=== PATIENT | female | born 1975 | race Hispanic/Latino ===

== ENCOUNTER 2023-02-26 12:21 | Emergency (ER) | payer OTHER ==
[2023-02-26] MEDS ORDERED: KETOROLAC 30 MG/ML INJ ONE (13:04)
--- OUTSIDE RECORDS SUMMARY | 2023-02-26 13:10 | XMS REPORT | Continuity of Care Document ---
:1975 Author Organization [facility] t Address [address] [place] [address] [address] [place] [address] Care Team Providers Name Role Phone Khoi Siddiqui MD Primary Care Physician [phone] ALANIS PETERSON Attending Clinician Unavailable Cheryl Tomas Attending Clinician Unknown, Attending Attending Clinician Unavailable CHERYL REDDING Attending Clinician Unavailable SERJIO NUNEZ III Attending Clinician Unavailable King JOSE MD, James C Attending Clinician Provider, [facility] Attending Clinician Unavailable SELENA TOUSSAINT Attending Clinician Unavailable Selena Toussaint PA-C Attending Clinician Doctor Unassigned, Fedora Attending Clinician Unavailable JIL ADAMS Attending Clinician Unavailable SIENNA WATSON Attending Clinician Unavailable Sienna Watson MD Attending Clinician Conrad VIGIL, Kelly Attending Clinician KELLY MARTINES Attending Clinician Unavailable Jil Adams MD Attending Clinician Matilde RD, LD, Casie Attending Clinician Unavailable ZAINAB MACDONALD Attending Clinician Unavailable JIL ADAMS Attending Clinician Unavailable Jil Adams MD Attending Clinician Nilda Wagner MD Attending Clinician [place], [facility] Test Attending Clinician Unavailable Andrew Chinchilla DO Attending Clinician ANDREW CHINCHILLA Attending Clinician Unavailable Valdemar John PA-C Attending Clinician VALDEMAR JOHN Attending Clinician Unavailable Alanis Peterson MD Attending Clinician UCHE MOORE Attending Clinician Unavailable Uche Priest Attending Clinician Buffy Redd MD Attending Clinician Percy Vogel Attending Clinician Unavailable Brandan Thrasher MD Attending Clinician BRANDAN THRASHER Attending Clinician Unavailable 2, Adc Lab Attending Clinician Unavailable Zachary Rodriguez MD Attending Clinician ZACHARY RODRIGUEZ Attending Clinician Unavailable ZACHARY RODRIGUEZ Attending Clinician Unavailable Nurse, Adc Pob Immunization Attending Clinician Unavailable Surface Lyndsay MAJOR Attending Clinician ELE VALENTINE Attending Clinician Unavailable Jenaro Jonas Attending Clinician Ele Valentine DO Attending Clinician Clarence Benitez MD Attending Clinician Neptali Knight MD Attending Clinician Mansi Romo MD Attending Clinician MD NEPTALI KNIGHT Attending Clinician Unavailable Singh Meeks Attending Clinician Unavailable LULY REEVES Attending Clinician Unavailable Elzbieta Bennett RN Attending Clinician Unavailable Only, Fito Db Test Attending Clinician Unavailable Angela CONTAMINATION CONSULTANT, Pierre Attending Clinician PIERRE REEVES Attending Clinician Unavailable ALLAN FINNEY Attending Clinician Unavailable Eric Senior MD Attending Clinician Tiarra CONTAMINATION CONSULTANT, Mana Lindsey Attending Clinician MANA MAYEN Attending Clinician Unavailable VIKTORIYA MIGUEL Attending Clinician Unavailable SASHA DAHL Attending Clinician Unavailable SALVADOR KANG Attending Clinician Unavailable Nurse, Ciro Urgent Attending Clinician Unavailable UNKNOWN, ATTENDING Attending Clinician Unavailable Ady Hollis MD Attending Clinician Provider, [facility] Attending Clinician Unavailable LISA HARPER Attending Clinician Unavailable Arcadio INGRAM, Annabel Attending Clinician SAIRA LOPEZ Attending Clinician Unavailable JIL ADAMS Admitting Clinician Unavailable SIENNA WATSON Admitting Clinician Unavailable ZACHARY RODRIGUEZ Admitting Clinician Unavailable ELE VALENTINE Admitting Clinician Unavailable Ele Valentine DO Admitting Clinician NEPTALI KNIGHT Admitting Clinician Unavailable MD NEPTALI KNIGHT Admitting Clinician Unavailable Physician, No Primary or Family Admitting Clinician Unavaila SAIRA French Admitting Clinician Unavailable Payers Payer Name Policy Type Policy Number Effective Date Expiration Date S pinky [facility] [place] [facility] [id number] 2017 00:00:00 [facility] [id number] 2020 CHOICE MEDICAID 00:00:00 [facility] [id number] [facility] MEDICAID COMM [id number] 2020 [facility] 00:00:00 [facility] [id number] [facility] (MEDICAID REPLACEMENT - HMO) [facility] [id number] 2019 00:00:00 Problems Condition Condition Condition Status Onset Resolution Last Treating Co mments Source Name Details Category Date Date Treatment Clinician Date Dizziness Dizziness Disease Active 2020-10 Uni vers 2-03 ity of 00:00: [place] 00 Medical Branch Stroke-lik Stroke-lik Disease Active 2020-10 M ethodi e symptoms e symptoms -12 st 00:00: [facility]osp[facility] 00 l Subacute Subacute Disease Active Unive rs maxillary maxillary 6-03 [place] of [place]itis [place] Chronic Chronic Disease Active Univers allergic allergic 6-03 ity of rhinitis rhinitis 00:00: [place] 00 Medical Branch Pharyngiti Pharyngiti Disease Active U nivers s due to s due to 6-03 ity of other other 00:00: [place] organism organism 00 Medica l Branch SOB SOB Disease Active Univers (shortness (shortness 6-03 it y of of breath) of breath[place] [facility] [place] Tenderness Tenderness Disease Active 2016-10 U nivers of female of female 1-15 ity of pelvic pelvic 00:00: [place] organs organs 00 Medical Branch Morbid Morbid Disease Active 2016-10 Univers obesity obesity 1-15 ity of 00:00: [place] 00 Medical Branch BMI BMI Disease Active 2016-10 Univers 31.0-31.9, 31.0-31.9, 1-15 it y of adult adult 00:00: [place] 00 Medical Branch Encounter Encounter Disease Active Uni vers for for 5-03 ity of laboratory laboratory [place] testing testing 00 Medical for for Branch COVID-19 COVID-19 virus virus Other Other Disease Active 2015-10 Univers general general 1-10 ity of counseling counseling 00:[place] and advice and advice 00 Me dical for for Branch contracept contracept joey joey management management Obesity Obesity Disease Active 2015-10 Univers (BMI (BMI 1-10 ity of 30.0-34.9) 30.0-34.9) [place] Depression Depression Disease Active 2015-10 U nivers , , 1-10 ity of unspecifie unspecifie 00:[place] d d 00 Medical depression depression Br anch type type Diabetes Diabetes Disease Active 2015-10 Unive rs mellitus mellitus 1-10 ity of due to due to 00:00: [place] underlying underlying 00 Me dical condition condition Bran ch without without complicati complicati on, on, without without long-term long-term current current use of use of insulin insulin Allergies, Adverse Reactions, Alerts Allergy Allergy Status Severity Reaction(s) Onset Inactive Treating Comm ents Source Name Type Date Date Clinician Guido Propensi Active Has [facility] e ty to 8-02 normal College adverse 00:00: side of reaction 00 effects Medicin s to such as e drug elevated BP and Glucose. Was hospitali zed due to this and was told to avoid n Propensi Active ty to 7-11 adverse 00:00: reaction 00 to drug Mucinex Propensi Active - Oral ty to 3-18 adverse 00:00: reaction 00 to drug CORTISON DRUG Active HYPERTENSION Un joellen E INGREDI 10-11 ity of 00:00: [place] 00 Medical Branch Cortison Propensi Active Hypertension Univers e ty to 07 ity of adverse 00:00: [place] reaction 00 Medical s Branch Cortison Drug Active Other (See Other [facility] Allergy Comments) 10-11 reaction( Lavinia es 00:00: s[facility] normal side effects such as elevated BP and Glucose. Was hospitali zed due to this and was told to avoid CORTISON Allergy Active High Other [facility] Cortison Propensi Active Hypertension Methodi e ty to 10-11 st adverse 00:00: Hospita reaction 00 l s to drug No Known DA Active U 0 [facility] 06[facility]14 [facility] s 00:00: [address] No Known DA Active U 0 [facility] All[facility]ie 06-14 [facility] s 00:00: [address] No Known DA Active U 2019-0 [facility] 02[facility]01 [facility] 00:[facility] 00 l of [place] No Known DA Active U 2018-0 [facility]ie 01-03 [place] 00:[facility]: [facility] 00 dic Hospita l Mucinex Propensi Active 2016-10 ty to 2-13 adverse 00:00: reaction 00 to drug Social History Social Habit Start Date Stop Date Quantity Comments Source History SDOH University o f Alcohol Std Drinks [place] [facility] History SDOH University o f Alcohol Binge [place] [facility] al [facility] History SDWV University o f Alcohol Comment [place] Med ical [facility] Sexual orientation Method ist [facility] identity [facility] Exposure to 2023-01-11 2023-01-21 Not sure University of SARS-CoV-2 (event) 00:00:00 16:08:00 [facility] Tobacco use and 2022-05-12 2022-05-[address] [facility] [address] [facility] kes exposure 00:00:00 00:00:00 Medical Center History SDOH 2021-12-26 2021-12-26 1 University o f Alcohol [facility] 00:00[facility]00 [facility] 2021-08-17 2021-08-17 Ex-drinker [facility] 00:00:00 00:00:00 (finding) Hospital History of Social 2021-08-17 2021-08-[address] function 00:00:00 00:00:00 Hospital Sex Assigned At [birth year] [facility] 00:00:00 00:00:00 Hospital Smoking Status Start Date Stop Date Source Never smoker [facility]UN[facility] Medications Ordered Filled Start Stop Current Ordering Indication Dosage Frequency Signature Comments Components Source Medication Medication Date Date Medication? Clinician (SIG) Name Name cefdinir 2022- Yes [id number] 600mg Take 2 U nivers 300 mg 4-19 04-30 capsules ity of capsule 00:00: 04:59 by mouth [place] 00 :00 in the [facility] for 10 days. nitrofurant 2022-0 Yes [id number] 100mg Take 1 Univers oin 100 mg 3-30 capsule by ity of capsule 00:00: mouth in [address] morning [place] and 1 capsule in the evening. nitrofurant 2022-0 Yes [id number] 100mg Take 1 Univers oin 100 mg 3-30 capsule by ity of capsule 00:00: mouth in [address] morning [place] and 1 capsule in the evening. lisinopriL 2022-0 Yes 20mg Take 1 Unive rs 20 mg 3-27 tablet by ity of tablet 08:37: mouth. [address] lisinopriL 2022-0 Yes 20mg Take 1 Unive rs 20 mg 3-27 tablet by ity of tablet 08:37: mouth. [address] lisinopriL 2022-0 Yes 20mg Take 1 Unive rs 20 mg 3-27 tablet by ity of tablet 08:37: mouth. [address] lisinopriL 0 Yes 20mg Take 1 Unive rs 20 mg 3-27 tablet by ity of tablet 08:37: mouth. [address] lisinopriL 0 Yes 20mg Take 1 Unive rs 20 mg 3-27 tablet by ity of tablet 08:37: mouth. [address] atorvastati Yes [facility] n (LIPITOR) [address] [place] 40 MG 09:43: of tablet 06 Medicin e carvedilol Yes 3.125mg Take 1 Ba ylor (COREG) 3-24 Tablet by [place] 3.125 MG 09:43: mouth. of tablet 06 Medicin e metformin Yes [facility] (GLUCOPHAGE 12-26 [place] ) 1000 MG 09:43: of tablet 06 Medicin e omeprazole Yes [facility] (PRILOSEC) 24 [place] 40 MG 09:43: of capsule 06 Medicin e Cholecalcif Yes Take by [facility] treva (HM 24 mouth. [place] VITAMIN D3) 09:43: of 100 MCG 06 Medicin (4000 UT) e CAPS Insulin Yes Inject [facility] Aspart, 12-26 into the [place] w/Niacinami 09:43: skin as of de, (FIASP 06 needed. Medici n FLEXTOUCH) e 100 UNIT/ML SOPN amoxicillin Yes 1{tbl} Take 1 Ba [facility]lor -clavulanat 3-24 Tablet by Col lege e 09:43: mouth two of (AUGMENTIN) 06 times Medicin 875-125 MG daily. e per tablet CREON Yes Take 2 Univers 36,000-114, 2-20 Capsules ity of 000- 00:00: by mouth 3 [place] 180,000 00 times Medical unit CpDR daily Branch (with meals). And 1 cap with snacks. CREON 0 Yes Take 2 Univers 36,000-114, 2-20 Capsules ity of 000- 00:00: by mouth 3 [place] 180,000 00 times Medical unit CpDR daily Branch (with meals). And 1 cap with snacks. CREON 0 Yes Take 2 Univers 36,000-114, 2-20 Capsules ity of 000- 00:00: by mouth 3 [place] 180,000 00 times Medical unit CpDR daily Branch (with meals). And 1 cap with snacks. CREON Yes Take 2 Univers 36,000-114, 2-20 Capsules ity of 000- 00:00: by mouth 3 [place] 180,000 00 times Medical unit CpDR daily Branch (with meals). And 1 cap with snacks. CREON Yes Take 2 Univers 36,000-114, 2-20 Capsules ity of 000- 00:00: by mouth 3 [place] 180,000 00 times Medical unit CpDR daily Branch (with meals). And 1 cap with snacks. Prucaloprid Yes 1{tbl} Take 1 Ba ylor e Succinate -07 Tablet by Col lege 2 MG TABS 00:00: mouth of 00 daily. Medicin e acetaminoph 2022- No 975mg 975 mg, U nivers en 11-06 Oral, ity of (TYLENOL) 02:00: 01:03 ONCE, 1 [place] tablet 975 00 :00 dose, On Medic al mg 11/05/22 Branch at 2000, MARY JO amoxicillin Yes 1{tbl} Take 1 Ba ylor -clavulanat 1-06 Tablet by Col lege e 11:20: mouth two of (AUGMENTIN) 33 times Medicin 875-125 MG daily. e per tablet amoxicillin Yes 1{tbl} Take 1 Ba ylor -clavulanat 1-06 Tablet by Col lege e 11:20: mouth two of (AUGMENTIN) 33 times Medicin 875-125 MG daily. e per tablet Insulin Yes Inject [facility] Aspart, 10-10 into the [place] w/Niacinami 11:20: skin as of de, (FIASP 09 needed. Medici n FLEXTOUCH) e 100 UNIT/ML SOPN Insulin Yes Inject [facility] Aspart, 10-10 into the [place] w/Niacinami 11:20: skin as of de, (FIASP 09 needed. Medici n FLEXTOUCH) e 100 UNIT/ML SOPN atorvastati Yes [facility] n (LIPITOR) 10-10 College 40 MG 11:15: of tablet 53 Medicin e carvedilol 3-0 Yes 3.125mg Take 3.125 [facility] (COREG) 1-06 mg by College 3.125 MG 11:15: mouth. of tablet 53 Medicin e metformin 3-0 Yes [facility] (GLUCOPHAGE 10-10 [place] ) 1000 MG 11:15: of tablet 53 Medicin e omeprazole 3-0 Yes [facility] (PRILOSEC) 10-10 [place] 40 MG 11:15: of capsule 53 Medicin e Cholecalcif 3-0 Yes Take by [place] th[place] treva ( 10-10 mouth. [place] VITAMIN D3) 11:15: of 100 MCG 53 Medicin (4000 UT) e CAPS atorvastati 2022-0 Yes [facility] n (LIPITOR) 10-10 [place] 40 MG 11:15: of tablet 53 Medicin e carvedilol 3-0 Yes 3.125mg Take 3.125 [facility] (COREG) 1-06 mg by [place] 3.125 MG 11:15: mouth. of tablet 53 Medicin e metformin 2022-0 Yes [facility] (GLUCOPHAGE 10-10 [place] ) 1000 MG 11:15: of tablet 53 Medicin e omeprazole 3-0 Yes [facility] (PRILOSEC) 10-10 [place] 40 MG 11:15: of capsule 53 Medicin e Cholecalcif 2022-0 Yes Take by [place] th[place] treva ( 10-10 mouth. [place] VITAMIN D3) 11:15: of 100 MCG 53 Medicin (4000 UT) e CAPS atorvastati 3-0 Yes [facility] n (LIPITOR) 10-10 [place] 40 MG 11:15: of tablet 53 Medicin e carvedilol 3-0 Yes 3.125mg Take 3.125 [facility] (COREG) 1-06 mg by College 3.125 MG 11:15: mouth. of tablet 53 Medicin e metformin 3-0 Yes [facility] (GLUCOPHAGE 10-10 [place] ) 1000 MG 11:15: of tablet 53 Medicin e omeprazole 2023-0 Yes [facility] (PRILOSEC) 10-10 [place] 40 MG 11:15: of capsule 53 Medicin e Cholecalcif 3-0 Yes Take by [place] th[place] treva ( 10-10 mouth. [place] VITAMIN D3) 11:15: of 100 MCG 53 Medicin (4000 UT) e CAPS NAPROXEN 2021-10 Yes [id number] TAKE 1 Un joellen 500 mg 11-25 TABLET BY ity of tablet 00:00: MOUTH IN [place] 00 THE Medical MORNING Branch AND IN THE EVENING NAPROXEN 2021-10- No [id number] TAKE 1 U nivers 500 mg 11-25 TABLET BY ity of tablet 00:00: 00:00 MOUTH IN [place] 00 :00 THE Medical MORNING Branch AND IN THE EVENING naproxen 2021-10 Yes [id number] 500mg Take 1 U nivers (NAPROSYN) 11-06 tablet by ity of 500 mg 00:00: mouth in [place] tablet 00 the Medical morning Branch and 1 tablet in the evening. naproxen 2021-10- No [id number] 500mg Take 1 Univers (NAPROSYN) 11-06 tablet by ity of 500 mg 00:00: 00:00 mouth in [place] tablet 00 :00 the Medical morning Branch and 1 tablet in the evening. naproxen 2021-10 Yes [id number] 500mg Take 1 U nivers (NAPROSYN) 11-05 tablet by ity of 500 mg 00:00: mouth in [place] tablet 00 the Medical morning Branch and 1 tablet in the evening. naproxen 2021-10- No [id number] 500mg Take 1 Univers (NAPROSYN) 11-05 tablet by ity of 500 mg 00:00: 00:00 mouth in [place] tablet 00 :00 the Medical morning Branch and 1 tablet in the evening. atorvastati 2021-10 Yes [facility] n (LIPITOR) 10-05 [place] 40 MG 09:26: of tablet 19 Medicin e carvedilol 2021-10 Yes 3.125mg Take 3.125 [facility] (COREG) 10-05 mg by [place] 3.125 MG 09:26: mouth. of tablet 19 Medicin e metformin 2021-10 Yes [facility] (GLUCOPHAGE 10-05 [place] ) 1000 MG 09:26: of tablet 19 Medicin e omeprazole 2021-10 Yes [facility] (PRILOSEC) 10-05 [place] 40 MG 09:26: of capsule 19 Medicin e Cholecalcif 2021-10 Yes Take by [place] th[place] treva (HM 10-05 mouth. [place] VITAMIN D3) 09:26: of 100 MCG 19 Medicin (4000 UT) e CAPS atorvastati 2021-10 Yes [facility] n (LIPITOR) 10-05 [place] 40 MG 09:26: of tablet 19 Medicin e carvedilol 2021-10 Yes 3.125mg Take 3.125 [facility] (COREG) 10-05 mg by [place] 3.125 MG 09:26: mouth. of tablet 19 Medicin e metformin 2021-10 Yes [facility] (GLUCOPHAGE 10-05 [place] ) 1000 MG 09:26: of tablet 19 Medicin e omeprazole 2021-10 Yes [facility] (PRILOSEC) 10-05 [place] 40 MG 09:26: of capsule 19 Medicin e Cholecalcif 2021-10 Yes Take by [place] th[place] treva ( 10-[address] [facility] [place] VITAMIN D3) 09:26: of 100 MCG 19 Medicin (4000 UT) e CAPS atorvastati Yes [facility] n (LIPITOR) 07-03 [place] 40 MG 15:37: of tablet 52 Medicin e carvedilol Yes 3.125mg Take 3.125 [facility] (COREG) 07-03 mg by [place] 3.125 MG 15:37: mouth. of tablet 52 Medicin e metformin Yes [facility] (GLUCOPHAGE 07-03 [place] ) 1000 MG 15:37: of tablet 52 Medicin e omeprazole Yes [facility] (PRILOSEC) 07-03 [place] 40 MG 15:37: of capsule 52 Medicin e Cholecalcif Yes Take by [place] th[place] treva ( 07-03 mouth. [place] VITAMIN D3) 15:37: of 100 MCG 52 Medicin (4000 UT) e CAPS Pancrelipas Yes 2{capsu Take 2 B aylor e, 07-01 le} Capsules [place] Lip-Prot-Am 00:00: by mouth 3 of yl, 00 times Medicin [id number] daily e 0 units (with CPEP meals). And 1 cap with snacks. Pancrelipas Yes 2{capsu Take 2 B aylor e, 07-01 le} Capsules [place] Lip-Prot-Am 00:00: by mouth 3 of yl, 00 times Medicin [id number] daily e 0 units (with CPEP meals). And 1 cap with snacks. Pancrelipas Yes 2{capsu Take 2 B aylor e, 07-01 le} Capsules [place] Lip-Prot-Am 00:00: by mouth 3 of yl, 00 times Medicin [id number] daily e 0 units (with CPEP meals). And 1 cap with snacks. Pancrelipas Yes 2{capsu Take 2 B aylor e, 07-01 le} Capsules [place] Lip-Prot-Am 00:00: by mouth 3 of yl, 00 times Medicin [id number] daily e 0 units (with CPEP meals). And 1 cap with snacks. Pancrelipas Yes 2{capsu Take 2 B aylor e, 07-01 le} Capsules [place] Lip-Prot-Am 00:00: by mouth 3 of yl, 00 times Medicin [id number] daily e 0 units (with CPEP meals). And 1 cap with snacks. Pancrelipas Yes 2{capsu Take 2 B aylor e, 07-01 le} Capsules [place] Lip-Prot-Am 00:00: by mouth 3 of yl, 00 times Medicin [id number] daily e 0 units (with CPEP meals). And 1 cap with snacks. Pancrelipas Yes 2{capsu Take 2 B aylor e, 07-01 le} Capsules [place] Lip-Prot-Am 00:00: by mouth 3 of yl, 00 times Medicin [id number] daily e 0 units (with CPEP meals). And 1 cap with snacks. Pancrelipas Yes 2{capsu Take 2 B aylor e, 07-01 le} Capsules [place] Lip-Prot-Am 00:00: by mouth 3 of yl, 00 times Medicin [id number] daily e 0 units (with CPEP meals). And 1 cap with snacks. B-D DISP Yes Use once a [place] th[place] NEEDLE 9-20 week College 25GX1" 25G 00:00: of X 1" MISC 00 Medicin e B-D DISP 2021-0 Yes Use once a [place] thalia NEEDLE 9-20 week College 25GX1" 25G 00:00: of X 1" MISC 00 Medicin e B-D DISP Yes Use once a [place] thalia NEEDLE 9-20 week College 25GX1" 25G 00:00: of X 1" MISC 00 Medicin e B-D DISP 0 Yes Use once a [place] thalia NEEDLE 9-20 week College 25GX1" 25G 00:00: of X 1" MISC 00 Medicin e B-D DISP 2021-0 Yes Use once a [place] thalia NEEDLE 9-20 week College 25GX1" 25G 00:00: of X 1" MISC 00 Medicin e B-D DISP 2021-0 Yes Use once a [place] thalia NEEDLE 9-20 week College 25GX1" 25G 00:00: of X 1" MISC 00 Medicin e B-D DISP 2021-0 Yes Use once a [place] thalia NEEDLE 9-20 week College 25GX1" 25G 00:00: of X 1" MISC 00 Medicin e cyanocobala Yes Administer [facility] min 1000 9-14 1 ml College MCG/ML 00:00: (1,000 of injection 00 mcg) Medicin intramuscu e larly weekly BD SYRINGE Yes Use once [place] thalia SLIP TIP 9-14 weekly for Colle ge 25G X 5/8" 00:00: Cyanocobal o f 1 ML MISC 00 [facility] Medicin injections e cyanocobala Yes Administer [facility] min 1000 9-14 1 ml College MCG/ML 00:00: (1,000 of injection 00 mcg) Medicin intramuscu e larly weekly BD SYRINGE Yes Use once [place] thalia SLIP TIP 9-14 weekly for Colle ge 25G X 58" 00:00: Cyanocobal o f 1 ML MISC 00 [facility] Medicin injections e cyanocobala Yes Administer [place] min 1000 9-14 1 ml College MCG/ML 00:00: (1,000 of injection 00 mcg) Medicin intramuscu e larly weekly cyanocobala Yes Administer [place] min 1000 9-14 1 ml College MCG/ML 00:00: (1,000 of injection 00 mcg) Medicin intramuscu e larly weekly cyanocobala Yes Administer [facility] min 1000 9-14 1 ml College MCG/ML 00:00: (1,000 of injection 00 mcg) Medicin intramuscu e larly weekly cyanocobala Yes Administer [facility] min 1000 9-14 1 ml College MCG/ML 00:00: (1,000 of injection 00 mcg) Medicin intramuscu e larly weekly cyanocobala Yes Administer [facility] min 1000 9-14 1 ml College MCG/ML 00:00: (1,000 of injection 00 mcg) Medicin intramuscu e larly weekly BD SYRINGE Yes Use once [place] th[place] SLIP TIP 9-14 weekly for Colle ge 25G X 5/8" 00:00: Cyanocobal o f 1 ML MISC 00 [facility] Medicin injections e BD SYRINGE 2022- No Use once Ba ylor SLIP TIP 9-14 01-06 weekly for Anshu ege 25G X 5/8" 00:00: 00:00 Cyanocobal of 1 ML MISC 00 :00 [place] Medicin injections e metFORMIN Yes 1000mg Take 1,[address] [facility] (GLUCOPHAGE 8-24 mg by [facility] ) 1000 MG 14:55: mouth 2 Medic al tablet 43 (two) Center times daily with breakfast and dinner. carvediloL Yes 3.125mg Take 3.[address] (COREG) 8-24 mg by [facility] 3.125 MG 14:55: mouth 2 Medica l tablet 43 (two) Center times daily with breakfast and dinner. empaglifloz Yes 25mg QD Take [address] in 8-24 by mouth [facility] (Jardiance) 14:55: daily. Medi rajni 25 mg 43 Center tablet atorvastati Yes 40mg QD Take [address] n (LIPITOR) 8-24 by mouth Luke s 40 MG 14:55: daily. Medical tablet 43 Center dulaglutide Yes 1.5mg Inject 1.[address] (Trulicity) 8-24 mg [facility] 1.5 mg/0.5 14:55: subcutaneo M edical mL syringe [address] 7 days. omeprazole 0 Yes 40mg QD Take [address] (PriLOSEC) 8-24 by mouth [facility] 40 MG 14:55: daily. Medical capsule 43 Center cholecalcif 0 Yes 4000U QD Take 4,[address] treva, 8-24 Units by [facility] vitamin D3, 14:55: mouth Medic al 100 mcg 43 daily. Center (4,000 unit) Tab L.acid/L.ca Yes Take by [facility] sei/B.bif/B 8-24 mouth 4 [facility] .oxana/FOS 14:55: GUMMIES Medica l (PROBIOTIC 43 DAILY . Center BLEND ORAL) metFORMIN 0 Yes 1000mg Take 1,[address] (GLUCOPHAGE 8-24 mg by [facility] ) 1000 MG 14:55: mouth 2 Medic al tablet 43 (two) Center times daily with breakfast and dinner. carvediloL 0 Yes 3.125mg Take 3.[address] (COREG) 8-24 mg by [facility] 3.125 MG 14:55: mouth 2 Medica l tablet 43 (two) Center times daily with breakfast and dinner. empaglifloz Yes 25mg QD Take [address] in 8-24 by mouth [facility] (Jardiance) 14:55: daily. Medi rajni 25 mg 43 Center tablet atorvastati Yes 40mg QD Take [address] n (LIPITOR) 8-24 by mouth Luke s 40 MG 14:55: daily. Medical tablet 43 [place] dulaglutide Yes 1.5mg Inject 1.[address] (Trulicity) 8-24 mg [facility] 1.5 mg/0.5 14:55: subcutaneo M edical mL syringe 43 usly every [place] [facility] 7 days. omeprazole 0 Yes 40mg QD Take [address] (PriLOSEC) 8-24 by [facility] 40 MG 14:55: daily. Medical capsule 43 [place] cholecalcif 0 Yes 4000U QD Take 4,[address] [facility] treva, 8-24 Units by [facility] vitamin D3, 14:55: mouth Medic al 100 mcg 43 daily. Center (4,000 unit) Tab L.acid/L.ca Yes Take by [facility] sei/B.bif/B 8-24 mouth 4 [facility] .[place]/FOS 14:55: G[facility] Medica l (PROBIOTIC 43 DAILY . Center BLEND ORAL) metFORMIN 2022-0 Yes 1000mg Take 1,[address] [facility] (GLUCOPHAGE 8-24 mg by [facility] ) 1000 MG 14:55: mouth 2 Medic al tablet 43 (two) Center times daily with breakfast and dinner. carvediloL 2021-0 Yes 3.125mg Take 3.[address] [facility] (COREG) 8-24 mg by [facility] 3.125 MG 14:55: mouth 2 Medica l tablet 43 (two) Center times daily with breakfast and dinner. empaglifloz 2021-0 Yes 25mg QD Take [address] [facility] in 8-24 by mouth [facility] (Jardiance) 14:55: daily. Medi rajni 25 mg 43 Center tablet atorvastati 0 Yes 40mg QD Take [address] [facility] n (LIPITOR) 8-24 by mouth [facility] 40 MG 14:55: daily. Medical tablet 43 Center dulaglutide 0 Yes 1.5mg Inject 1.[address] (Trulicity) 8-24 mg [facility] 1.5 mg/0.5 14:55: subcutaneo M edical mL syringe [address] 7 days. omeprazole 0 Yes 40mg QD Take [address] (PriLOSEC) 8-24 by mouth [facility] 40 MG 14:55: daily. Medical capsule 43 Center cholecalcif 0 Yes 4000U QD Take 4,[address] [facility] treva, 8-24 Units by [facility] vitamin D3, 14:55: mouth Medic al 100 mcg 43 daily. Center (4,000 unit) Tab L.acid/L.ca 0 Yes Take by [facility] sei/B.bif/B 8-24 mouth 4 [facility]/FOS 14:55: [facility]UMMI[facility] Medica l (PROBIOTIC 43 DAILY . Center BLEND ORAL) metFORMIN 2021-0 Yes 1000mg Take 1,[address] [facility] (GLUCOPHAGE 8-24 mg by [facility] ) 1000 MG 14:55: mouth 2 Medic al tablet 43 (two) Center times daily with breakfast and dinner. carvediloL 2021-0 Yes 3.125mg Take 3.[address] [facility] (COREG) 8-24 mg by [facility] 3.125 MG 14:55: mouth 2 Medica l tablet 43 (two) Center times daily with breakfast and dinner. empaglifloz 2021-0 Yes 25mg QD Take [address] [facility] in 8-24 by mouth [facility] (Jardiance) 14:55: daily. Medi rajni 25 mg 43 Center tablet atorvastati 0 Yes 40mg QD Take [address] [facility] n (LIPITOR) 8-24 by mouth [facility] 40 MG 14:55: daily. Medical tablet 43 Center dulaglutide 0 Yes 1.5mg Inject 1.[address] (Trulicity) 8-24 mg [facility] 1.5 mg/0.5 14:55: subcutaneo M edical mL syringe [address] 7 days. omeprazole 2021-0 Yes 40mg QD Take [address] (PriLOSEC) 8-24 by mouth [facility] 40 MG 14:55: daily. Medical capsule 43 Center cholecalcif 0 Yes 4000U QD Take 4,[address] [address] treva, 8-24 Units by [facility] vitamin D3, 14:55: mouth Medic al 100 mcg 43 daily. Center (4,000 unit) Tab L.acid/L.ca Yes Take by [facility] sei/B.bif/B 8-24 mouth 4 [facility]/FOS 14:55: [facility]UMMI[facility] Medica l (PROBIOTIC 43 DAILY . Center BLEND ORAL) sodium Yes .1mL Inject 0.1 [facility] chloride 8-24 mLs [facility] bacteriosta 00:00: intraderma Medical tic 0.9% 00 lly as Center 0.9 % needed (IV injection start). lidocaine 0 Yes 1mL Inject [address] [facility] 1% 10 mg/mL 8-24 mL [facility] (1 %) 00:00: intraderma Medica l injection 00 lly as Center needed (IV start). sodium 2021-0 Yes 1000mL Inject [facility] chloride 8-24 1,000 [facility]s [facility] 0.9% (NS) 00:00: intravenou Me dical infusion 00 sly Center continuous . sodium 2021-0 Yes 1000mL Inject [facility] chloride 8-24 1,000 [facility]s [facility] 0.9% (NS) 00:00: intravenou Me dical infusion 00 sly Center continuous . sodium 2021-0 Yes .1mL Inject 0.1 [facility] chloride 8-24 mLs [facility] bacteriosta 00:00: intraderma Medical tic 0.9% 00 lly as Center 0.9 % needed (IV injection start). lidocaine 2022-0 Yes 1mL Inject [address] [facility] 1% 10 mg/mL 8-24 mL [facility] (1 %) 00:00: intraderma Medica l injection 00 lly as Center needed (IV start). sodium 2022-0 Yes 1000mL Inject [facility] chloride 8-24 1,000 [facility]s [facility] 0.9% (NS) 00:00: intravenou Me dical infusion 00 sly Center continuous . sodium 2022-0 Yes 1000mL Inject [facility] chloride 8-24 1,000 [facility]s [facility] 0.9% (NS) 00:00: intravenou Me dical infusion 00 sly Center continuous . sodium 2022-0 Yes .1mL Inject 0.1 [facility] chloride 8-24 mLs [facility] bacteriosta 00:00: intraderma Medical tic 0.9% 00 lly as Center 0.9 % needed (IV injection start). lidocaine 2022-0 Yes 1mL Inject [address] [facility] 1% 10 mg/mL 8-24 mL [facility] (1 %) 00:00: intraderma Medica l injection 00 lly as Center needed (IV start). sodium 2022-0 Yes 1000mL Inject [facility] chloride 8-24 1,000 [facility]s [facility] 0.9% (NS) 00:00: intravenou Me dical infusion 00 sly Center continuous . sodium 2022-0 Yes 1000mL Inject [facility] chloride 8-24 1,000 [facility]s [facility] 0.9% (NS) 00:00: intravenou Me dical infusion 00 sly Center continuous . sodium 2022-0 Yes .1mL Inject 0.1 [facility] chloride 8-24 mLs [facility] bacteriosta 00:00: intraderma Medical tic 0.9% 00 lly as Center 0.9 % needed (IV injection start). lidocaine 2022-0 Yes 1mL Inject [address] [facility] 1% 10 mg/mL 8-24 mL [facility] (1 %) 00:00: intraderma Medica l injection 00 lly as Center needed (IV start). sodium 2022-0 Yes 1000mL Inject [facility] chloride 8-24 1,000 [facility]s [facility] 0.9% (NS) 00:00: intravenou Me dical infusion 00 sly Center continuous . sodium 2021-0 Yes 1000mL Inject [facility] chloride 8-24 1,000 [facility]s [facility] 0.9% (NS) 00:00: intravenou Me dical infusion 00 sly Center continuous . lidocaine 2-0 Yes 1mL Inject 1 [facility] 1% (10 8-24 mL into [facility] mg/mL) 00:00: the skin. of injection 00 Medicin e lidocaine 2021-0 Yes 1mL Inject 1 [facility] 1% (10 8-24 mL into [facility] mg/mL) 00:00: the skin. of injection 00 Medicin e lidocaine 2021-0 Yes 1mL Inject 1 [facility] 1% (10 8-24 mL into College mg/mL) 00:00: the skin. of injection 00 Medicin e lidocaine 2021-0 2023- No 1mL Inject 1 [place] [facility] 1% (10 8-24 01-06 mL into College mg/mL) 00:00: 00:00 the skin. of injection 00 :00 Medicin e OMEPRAZOLE 0 No CAP 40MG 05-22 00:00: 00 TRULICITY 2021-0 No INJ 1.5/0.5 05-09 00:00: 00 carvedilol 0 Yes 3.125mg Take 3.125 [facility] (COREG) 8- mg by [place] 3.125 MG 09:41: mouth. of tablet 45 Medicin e metformin 0 Yes [facility] (GLUCOPHAGE 05-06 [place] ) 1000 MG 09:41: of tablet 45 Medicin e omeprazole 2021-0 Yes [facility] (PRILOSEC) 05-06 [place] 40 MG 09:41: of capsule 45 Medicin e Cholecalcif 0 Yes Take by [facility] treva (HM 05-06 mouth. [place] VITAMIN D3) 09:41: of 100 MCG 45 Medicin (4000 UT) e CAPS atorvastati 0 Yes [facility] n (LIPITOR) 05-06 [place] 40 MG 09:41: of tablet 45 Medicin e carvedilol 2021-0 Yes 3.125mg Take 3.125 [facility] (COREG) 8-02 mg by [place] 3.125 MG 09:41: mouth. of tablet 45 Medicin e metformin 2021-0 Yes [facility] (GLUCOPHAGE 05-06 [place] ) 1000 MG 09:41: of tablet 45 Medicin e omeprazole 2021-0 Yes [facility] (PRILOSEC) 05-06 [place] 40 MG 09:41: of capsule 45 Medicin e Cholecalcif 2021-0 Yes Take by [facility] treva (HM 05-06 [facility] [place] VITAMIN D3) 09:41: of 100 MCG 45 Medicin (4000 UT) e CAPS atorvastati 2021-0 Yes [facility] n (LIPITOR) 05-06 [place] 40 MG 09:41: of tablet 45 Medicin e magnesium 2021-0 Yes by [facility] 05-05 [facility] ([facility]) 00:00: N route. of 400 MG 00 Medicin tablet e magnesium 2021-0 Yes by [facility] 05-05 [facility] ([facility]) 00:00: N route. of 400 MG 00 Medicin tablet e magnesium 2021-0 Yes by [facility] 05-05 [facility] ([facility]) 00:00: N route. of 400 MG 00 Medicin tablet e APPLY TO 2021-0 No THE 05-05 AFFECTED 00:00: AREA(S) 00 TWICE DAILY &lt 2-0 No 500 05-05 00:00: 00 TAKE 1 2021-0 No 400 TABLET BY 05-05 MOUTH TWICE 00:00: DAILY 00 &lt 2-0 No 05-05 00:00: 00 magnesium 2-0 3- No by [facility] 05-05 [facility] ([facility] 00:00: 00:00 N route. of 400 MG 00 :00 Medicin tablet e Nitrofurant 2021-0 Yes [id number] 100mg Take 1 [facility] oin&Nit. 7-25 capsule by ity o f Macroc[place] 00:00: mouth in [place] (MACROBID) 00 the Medical 100 mg morning Branch capsule and 1 capsule in the evening. Nitrofurant 2022-0 Yes [id number] 100mg Take 1 [facility] oin&Nit. 7-25 capsule by ity o f Macrocryst 00:00: mouth in [place] (MACROBID) 00 the Medical 100 mg morning Branch capsule and 1 capsule in the evening. Nitrofurant 2022-0 Yes [id number] 100mg Take 1 [facility] oin&Nit. 7-25 capsule by ity o f Macrocryst 00:00: mouth in [place] (MACROBID) 00 the Medical 100 mg morning Branch capsule and 1 capsule in the evening. Nitrofurant 0 Yes [id number] 100mg Take 1 [facility] oin&Nit. 7-25 capsule by ity o f Macrocryst 00:00: mouth in [place] (MACROBID) 00 the Medical 100 mg morning Branch capsule and 1 capsule in the evening. Nitrofurant Yes [id number] 100mg Take 1 [facility] oin&Nit. 7-25 capsule by ity o f Macrocryst 00:00: mouth in [place] (MACROBID) 00 the Medical 100 mg morning Branch capsule and 1 capsule in the evening. Nitrofurant Yes [id number] 100mg Take 1 [facility] oin&Nit. 7-25 capsule by ity o f Macrocryst 00:00: mouth in [place] (MACROBID) 00 the Medical 100 mg morning Branch capsule and 1 capsule in the evening. Nitrofurant 3- No [id number] 100mg Take 1 [facility] oin&Nit. 7-25 01-31 capsule by ity of Macrocryst 00:00: 00:00 mouth in [place] (MACROBID) 00 :00 the Medical 100 mg morning Branch capsule and 1 capsule in the evening. ESTRADIOL 1 Yes [id number] 1mg TAKE 1 [facility] mg tablet 7-21 TABLET BY ity o f 00:00: MOUTH [place] 00 DAILY Medical Branch ESTRADIOL 1 2021-0 Yes [id number] 1mg TAKE 1 [facility] mg tablet 7-21 TABLET BY ity o f 00:00: MOUTH [place] DAILY Medical Branch ESTRADIOL 1 2021-0 Yes [id number] 1mg TAKE 1 [facility] mg tablet 7-21 TABLET BY ity o f 00:00: MOUTH [place] 00 DAILY Medical Branch ESTRADIOL 1 2021-0 Yes [id number] 1mg TAKE 1 [facility] mg tablet 7-21 TABLET BY ity o f 00:00: MOUTH [place] DAILY Medical Branch ESTRADIOL 1 2021-0 Yes [id number] 1mg TAKE 1 [facility] mg tablet 7-21 TABLET BY ity o f 00:00: MOUTH [place] 00 DAILY Medical Branch ESTRADIOL 1 2022-0 Yes [id number] 1mg TAKE 1 [facility] mg tablet 7-21 TABLET BY ity o f 00:00: MOUTH DAILY Medical Branch ESTRADIOL 1 2021-0 Yes [id number] 1mg TAKE 1 [facility] mg tablet 7-21 TABLET BY ity o f 00:00: MOUTH DAILY Medical Branch ESTRADIOL 1 2021-0 Yes [id number] 1mg TAKE 1 [facility] mg tablet 7-21 TABLET BY ity o f 00:00: MOUTH DAILY Medical Branch ESTRADIOL 1 2021-0 Yes [id number] 1mg TAKE 1 [facility] mg tablet 7-21 TABLET BY ity o f 00:00: MOUTH DAILY Medical Branch ESTRADIOL 1 2021-0 Yes [id number] 1mg TAKE 1 [facility] mg tablet 7-21 TABLET BY ity o f 00:00: MOUTH DAILY Medical Branch ESTRADIOL 1 2021-0 Yes [id number] 1mg TAKE 1 [facility] mg tablet 7-21 TABLET BY ity o f 00:00: MOUTH DAILY Medical Branch ESTRADIOL 1 2021-0 Yes [id number] 1mg TAKE 1 [facility] mg tablet 7-21 TABLET BY ity o f 00:00: MOUTH DAILY Medical Branch ESTRADIOL 1 2021-0 Yes [id number] 1mg TAKE 1 [facility] mg tablet 7-21 TABLET BY ity o f 00:00: MOUTH DAILY Medical Branch ESTRADIOL 1 2021-0 Yes [id number] 1mg TAKE 1 [facility] mg tablet 7-21 TABLET BY ity o f 00:00: MOUTH DAILY Medical Branch ESTRADIOL 1 2021-0 Yes [id number] 1mg TAKE 1 [facility] mg tablet 7-21 TABLET BY ity o f 00:00: MOUTH DAILY Medical Branch ESTRADIOL 1 2021-0 Yes [id number] 1mg TAKE 1 [facility] mg tablet 7-21 TABLET BY ity o f 00:00: MOUTH DAILY Medical Branch estradiol 2-0 Yes 1{tbl} Take 1 [facility] (ESTRACE) 1 7-21 Tablet by [facility] MG tablet 00:00: mouth daily. Medicin e estradiol 2021-0 Yes 1{tbl} Take 1 [facility] (ESTRACE) 1 7-21 Tablet by [facility] MG tablet 00:00: mouth of 00 daily. Medicin e estradiol 2021-0 Yes 1{tbl} Take 1 [facility] (ESTRACE) 1 7-21 Tablet by [facility] MG tablet 00:00: mouth of 00 daily. Medicin e estradiol 2022- No 1{tbl} Take 1 [place] [facility] (ESTRACE) 1 7-25 10- Tablet by [facility] MG tablet 00:00: 00:00 mouth of 00 :00 daily. Medicin e TRULICITY 3 Yes inject 3 [facility] MG/0.5ML 7-05 MG [facility] SOPN 00:00: subcutaneo of 00 usly Medicin WEEKLY e TRULICITY 3 Yes inject 3 [facility] MG/0.5ML 7-05 MG [facility] SOPN 00:00: subcutaneo of 00 usly Medicin WEEKLY e TRULICITY 3 Yes inject 3 [facility] MG/0.5ML 7-05 MG [facility] SOPN 00:00: subcutaneo of usly Medicin WEEKLY e TRULICITY 3 Yes inject 3 [facility] MG/0.5ML 7-05 MG [facility] SOPN 00:00: subcutaneo of 00 usly Medicin WEEKLY e TRULICITY 3 Yes inject 3 [facility] MG/0.5ML 7-05 MG [facility] SOPN 00:00: subcutaneo of 00 usly Medicin WEEKLY e TRULICITY 3 Yes inject 3 [facility] MG/0.5ML 7-05 MG [facility] SOPN 00:00: subcutaneo of 00 usly Medicin WEEKLY e TRULICITY 3 Yes inject 3 [facility] MG/0.5ML 7-05 MG [facility] SOPN 00:00: subcutaneo of 00 usly Medicin WEEKLY e TRULICITY 3 Yes inject 3 [facility] MG/0.5ML 7-05 MG [facility] SOPN 00:00: subcutaneo of 00 usly Medicin WEEKLY e TRULICITY 3 Yes inject 3 [facility] MG/0.5ML 7-05 MG [facility] SOPN 00:00: subcutaneo of 00 usly Medicin WEEKLY e JARDIANCE Yes Take 1 [facility] 25 MG TABS 6-22 tablet (25 Col lege 00:00: mg) by of 00 mouth Medicin daily e JARDIANCE Yes Take 1 [facility] 25 MG TABS 6-22 tablet (25 Col lege 00:00: mg) by of mouth Medicin daily e JARDIANCE Yes Take 1 [facility] 25 MG TABS 6-22 tablet (25 Col lege 00:00: mg) by of 00 mouth Medicin daily e JARDIANCE Yes Take 1 [facility] 25 MG TABS 6-22 tablet (25 Col lege 00:00: mg) by of mouth Medicin daily e JARDIANCE Yes Take 1 [facility] 25 MG TABS 6-22 tablet (25 Col lege 00:00: mg) by of mouth Medicin daily e JARDIANCE Yes Take 1 [facility] 25 MG TABS 6-22 tablet (25 Col lege 00:00: mg) by of mouth Medicin daily e JARDIANCE Yes Take 1 [place] 25 MG TABS 6-22 tablet (25 Col lege 00:00: mg) by of mouth Medicin daily e JARDIANCE Yes Take 1 [facility] 25 MG TABS 6-22 tablet (25 Col lege 00:00: mg) by of mouth Medicin daily e JARDIANCE Yes Take 1 [facility] 25 MG TABS 6-22 tablet (25 Col lege 00:00: mg) by of mouth Medicin daily e omeprazole Yes 40mg Take 40 mg U [facility] 40 mg 6-15 by mouth ity of capsule 09:20: daily. [address] omeprazole Yes 40mg Take 40 mg U nivers 40 mg 6-15 by mouth ity of capsule 09:20: daily. [address] omeprazole Yes 40mg Take 40 mg U nivers 40 mg 6-15 by mouth ity of capsule 09:20: daily. [address] omeprazole 0 Yes 40mg Take 40 mg U nivers 40 mg 6-15 by mouth ity of capsule 09:20: daily. [address] omeprazole 2021-0 Yes 40mg Take 40 mg U nivers 40 mg 6-15 by mouth ity of capsule 09:20: daily. [address] omeprazole 0 Yes 40mg Take 40 mg U nivers 40 mg 6-15 by mouth ity of capsule 09:20: daily. [address] Branch omeprazole 2-0 Yes 40mg Take 40 mg U nivers 40 mg 6-15 by mouth ity of capsule 09:20: daily. [address] Branch omeprazole 2-0 Yes 40mg Take 40 mg U nivers 40 mg 6-15 by mouth ity of capsule 09:20: daily. [address] omeprazole 2-0 Yes 40mg Take 40 mg U nivers 40 mg 6-15 by mouth ity of capsule 09:20: daily. [address] Branch omeprazole 2-0 Yes 40mg Take 40 mg U nivers 40 mg 6-15 by mouth ity of capsule 09:20: daily. [address] omeprazole 2-0 Yes 40mg Take 40 mg U nivers 40 mg 6-15 by mouth ity of capsule 09:20: daily. [address] omeprazole 2-0 Yes 40mg Take 40 mg U nivers 40 mg 6-15 by mouth ity of capsule 09:20: daily. [address] omeprazole 2-0 Yes 40mg Take 40 mg U nivers 40 mg 6-15 by mouth ity of capsule 09:20: daily. [address] omeprazole 2-0 Yes 40mg Take 40 mg U nivers 40 mg 6-15 by mouth ity of capsule 09:20: daily. [address] omeprazole 2-0 Yes 40mg Take 40 mg U nivers 40 mg 6-15 by mouth ity of capsule 09:20: daily. [address] omeprazole 2-0 Yes 40mg Take 40 mg U nivers 40 mg 6-15 by mouth ity of capsule 09:20: daily. [address] Branch cyclobenzap 2022-0 Yes [id number] 5mg Take 1 [facility] rine 5 mg 6-15 tablet by ity o f tablet 00:00: mouth at [place] [address] bedtime as Medical needed for Branch Muscle Spasms. cyclobenzap 2022-0 Yes [id number] 5mg Take 1 [facility] rine 5 mg 6-15 tablet by ity o f tablet 00:00: mouth at [place] [address] bedtime as Medical needed for Branch Muscle Spasms. cyclobenzap 2022-0 Yes [id number] 5mg Take 1 [facility] rine 5 mg 6-15 tablet by ity o f tablet 00:00: mouth at [place] 00 bedtime as Medical needed for Branch Muscle Spasms. cyclobenzap 0 Yes [id number] 5mg Take 1 [facility] rine 5 mg 6-15 tablet by ity o f tablet 00:00: mouth at [place] 00 bedtime as Medical needed for Branch Muscle Spasms. cyclobenzap Yes [id number] 5mg Take 1 [facility] rine 5 mg 6-15 tablet by ity o f tablet 00:00: mouth at [place] 00 bedtime as Medical needed for Branch Muscle Spasms. cyclobenzap Yes [id number] 5mg Take 1 [facility] rine 5 mg 6-15 tablet by ity o f tablet 00:00: mouth at [place] 00 bedtime as Medical needed for Branch Muscle Spasms. cyclobenzap Yes [id number] 5mg Take 1 [facility] rine 5 mg 6-15 tablet by ity o f tablet 00:00: mouth at [place] 00 bedtime as Medical needed for Branch Muscle Spasms. cyclobenzap Yes [id number] 5mg Take 1 [facility] rine 5 mg 6-15 tablet by ity o f tablet 00:00: mouth at [place] 00 bedtime as Medical needed for Branch Muscle Spasms. cyclobenzap Yes [id number] 5mg Take 1 [facility] rine 5 mg 6-15 tablet by ity o f tablet 00:00: mouth at [place] 00 bedtime as Medical needed for Branch Muscle Spasms. cyclobenzap 0 Yes [id number] 5mg Take 1 [facility] rine 5 mg 6-15 tablet by ity o f tablet 00:00: mouth at [place] 00 bedtime as Medical needed for Branch Muscle Spasms. cyclobenzap 0 Yes [id number] 5mg Take 1 [facility] rine 5 mg 6-15 tablet by ity o f tablet 00:00: mouth at [place] 00 bedtime as Medical needed for Branch Muscle Spasms. cyclobenzap 0 Yes [id number] 5mg Take 1 [facility] rine 5 mg 6-15 tablet by ity o f tablet 00:00: mouth at [place] 00 bedtime as Medical needed for Branch Muscle Spasms. cyclobenzap 0 Yes [id number] 5mg Take 1 [facility] rine 5 mg 6-15 tablet by ity o f tablet 00:00: mouth at [place] 00 bedtime as Medical needed for Branch Muscle Spasms. cyclobenzap 2021-0 Yes [id number] 5mg Take 1 [facility] rine 5 mg 6-15 tablet by ity o f tablet 00:00: mouth at [place] 00 bedtime as Medical needed for Branch Muscle Spasms. cyclobenzap 2021-0 Yes [id number] 5mg Take 1 [facility] rine 5 mg 6-15 tablet by ity o f tablet 00:00: mouth at [place] 00 bedtime as Medical needed for Branch Muscle Spasms. cyclobenzap 2021-0 Yes [id number] 5mg Take 1 [facility] rine 5 mg 6-15 tablet by ity o f tablet 00:00: mouth at [place] 00 bedtime as Medical needed for Branch Muscle Spasms. fluconazole 2021-0 Yes [id number] 150mg Take 1 [facility] 150 mg 6-02 tablet by ity of tablet 00:00: mouth [place] 00 every 72 Medical (seventy-t Branch wo) hours. fluconazole 2021-0 Yes [id number] 150mg Take 1 [facility] 150 mg 6-02 tablet by ity of tablet 00:00: mouth [place] 00 every 72 Medical (seventy-t Branch wo) hours. fluconazole 2021-0 Yes [id number] 150mg Take 1 [facility] 150 mg 6-02 tablet by ity of tablet 00:00: mouth [place] 00 every 72 Medical (seventy-t Branch wo) hours. fluconazole 2021-0 Yes [id number] 150mg Take 1 [facility] 150 mg 6-02 tablet by ity of tablet 00:00: mouth [place] 00 every 72 Medical (seventy-t Branch wo) hours. fluconazole 2021-0 Yes [id number] 150mg Take 1 [facility] 150 mg 6-02 tablet by ity of tablet 00:00: mouth [place] 00 every 72 Medical (seventy-t Branch wo) hours. fluconazole 2021-0 Yes [id number] 150mg Take 1 [facility] 150 mg 6-02 tablet by ity of tablet 00:00: mouth [place] 00 every 72 Medical (seventy-t Branch wo) hours. fluconazole 2021-0 Yes [id number] 150mg Take 1 [facility] 150 mg 6-02 tablet by ity of tablet 00:00: mouth [place] 00 every 72 Medical (seventy-t Branch wo) hours. fluconazole 2022-0 Yes [id number] 150mg Take 1 [facility] 150 mg 6-02 tablet by ity of tablet 00:00: mouth [place] 00 every 72 Medical ([facility] Branch wo) hours. fluconazole 2022-0 Yes [id number] 150mg Take 1 [facility] 150 mg 6-02 tablet by ity of tablet 00:00: mouth [place] 00 every 72 Medical ([facility] Branch wo) hours. fluconazole 2-0 Yes [id number] 150mg Take 1 [facility] 150 mg 6-02 tablet by ity of tablet 00:00: mouth [place] 00 every 72 Medical ([facility] Branch wo) hours. fluconazole 2021-0 Yes [id number] 150mg Take 1 [facility] 150 mg 6-02 tablet by ity of tablet 00:00: mouth [place] 00 every 72 Medical ([facility] Branch wo) hours. fluconazole 2021-0 Yes [id number] 150mg Take 1 [facility] 150 mg 6-02 tablet by ity of tablet 00:00: mouth [place] 00 every 72 Medical ([facility] Branch wo) hours. fluconazole 2021-0 Yes [id number] 150mg Take 1 [facility] 150 mg 6-02 tablet by ity of tablet 00:00: mouth [place] 00 every 72 Medical ([facility] Branch wo) hours. fluconazole 2021-0 Yes [id number] 150mg Take 1 [facility] 150 mg 6-02 tablet by ity of tablet 00:00: mouth [place] 00 every 72 Medical ([facility] Branch wo) hours. fluconazole 2021-0 Yes [id number] 150mg Take 1 [facility] 150 mg 6-02 tablet by ity of tablet 00:00: mouth [place] 00 every 72 Medical ([facility] Branch wo) hours. fluconazole 2021-0 Yes [id number] 150mg Take 1 [facility] 150 mg 6-02 tablet by ity of tablet 00:00: mouth [place] 00 every 72 Medical ([facility] Branch wo) hours. miconazole 2021-0 Yes [id number] 100mg Insert 1 [facility] 100 mg 5-17 Suppositor ity of vaginal 00:00: y into [place] suppository 00 vagina at [facility] bedtime. Branch miconazole 2021-0 Yes [id number] 100mg Insert 1 [facility] 100 mg 5-17 Suppositor ity of vaginal 00:00: y into [place] suppository 00 vagina at [facility] bedtime. Branch miconazole 2021-0 Yes [id number] 100mg Insert 1 [facility] 100 mg 5-17 Suppositor ity of vaginal 00:00: y into [place] suppository 00 vagina at [facility] bedtime. Branch miconazole 2021-0 Yes [id number] 100mg Insert 1 [facility] 100 mg 5-17 Suppositor ity of vaginal 00:00: y into [place] suppository 00 vagina at [facility] bedtime. Branch miconazole 2021-0 Yes [id number] 100mg Insert 1 [facility] 100 mg 5-17 Suppositor ity of vaginal 00:00: y into [place] suppository 00 vagina at [facility] bedtime. Branch miconazole 0 Yes [id number] 100mg Insert 1 [facility] 100 mg 5-17 Suppositor ity of vaginal 00:00: y into [place] suppository 00 vagina at [facility] bedtime. Branch miconazole 0 2023- No [id number] 100mg Insert 1 [facility] 100 mg 5-17 -31 Suppositor ity of vaginal 00:00: 00:00 y into [place] suppository 00 :00 vagina at [facility] bedtime. Branch ondansetron Yes [id number] 4mg Take 1 [facility] 4 mg 5-16 tablet by ity of disintegrat 00:00: mouth [place] ing tablet 00 every 8 Medica l (eight) Branch hours as needed for Nausea and Vomiting (N/V). ondansetron Yes [id number] 4mg Take 1 [facility] 4 mg 5-16 tablet by ity of disintegrat 00:00: mouth [place] ing tablet 00 every 8 Medica l (eight) Branch hours as needed for Nausea and Vomiting (N/V). ondansetron 0 Yes [id number] 4mg Take 1 [facility] 4 mg 5-16 tablet by ity of disintegrat 00:00: mouth [place] ing tablet 00 every 8 Medica l (eight) Branch hours as needed for Nausea and Vomiting (N/V). ondansetron 2021-0 Yes [id number] 4mg Take 1 [facility] 4 mg 5-16 tablet by ity of disintegrat 00:00: mouth [place] ing tablet 00 every 8 Medica l (eight) Branch hours as needed for Nausea and Vomiting (N/V). ondansetron 2022-0 Yes [id number] 4mg Take 1 [facility] 4 mg 5-16 tablet by ity of disintegrat 00:00: mouth [place] ing tablet 00 every 8 Medica l (eight) Branch hours as needed for Nausea and Vomiting (N/V). ondansetron 0 Yes [id number] 4mg Take 1 [facility] 4 mg 5-16 tablet by ity of disintegrat 00:00: mouth [place] ing tablet 00 every 8 Medica l (eight) Branch hours as needed for Nausea and Vomiting (N/V). ondansetron 3- No [id number] 4mg Take 1 [facility] 4 mg 5-16 - tablet by ity of disintegrat 00:00[place] :00 every 8 [facility] hours as needed for Nausea and Vomiting (N/V). Dose No Unknown 3-25 00:00: 00 atorvastati Yes 40mg Take 40 mg [facility] 40 mg 3-24 by mouth ity of tablet 15:09: daily. [address] atorvastati Yes 40mg Take 40 mg [facility] n 40 mg 3-24 by mouth ity of tablet 15:09: daily. [address] atorvastati Yes 40mg Take 40 mg [facility] n 40 mg 3-24 by mouth ity of tablet 15:09: daily. [address] atorvastati Yes 40mg Take 40 mg [facility] n 40 mg 3-24 by mouth ity of tablet 15:09: daily. [address] atorvastati 0 Yes 40mg Take 40 mg [facility] n 40 mg 3-24 by mouth ity of tablet 15:09: daily. [address] atorvastati 0 Yes 40mg Take 40 mg [facility] 40 mg 3-24 by mouth ity of tablet 15:09: daily. [address] atorvastati 0 Yes 40mg Take 40 mg [facility] n 40 mg 3-24 by mouth ity of tablet 15:09: daily. [address] atorvastati 0 Yes 40mg Take 40 mg [facility] n 40 mg 3-24 by mouth ity of tablet 15:09: daily. [address] atorvastati Yes 40mg Take 40 mg [facility] n 40 mg 3-24 by mouth ity of tablet 15:09: daily. [address] atorvastati Yes 40mg Take 40 mg [facility] n 40 mg 3-24 by mouth ity of tablet 15:09: daily. [address] atorvastati Yes 40mg Take 40 mg [facility] n 40 mg 3-24 by mouth ity of tablet 15:09: daily. [address] atorvastati Yes 40mg Take 40 mg [facility] n 40 mg 3-24 by mouth ity of tablet 15:09: daily. [address] atorvastati Yes 40mg Take 40 mg [facility] n 40 mg 3-24 by mouth ity of tablet 15:09: daily. [address] atorvastati Yes 40mg Take 40 mg [facility] n 40 mg 3-24 by mouth ity of tablet 15:09: daily. [address] atorvastati Yes 40mg Take 40 mg [facility] n 40 mg 3-24 by mouth ity of tablet 15:09: daily. [address] atorvastati Yes 40mg Take 40 mg [facility] n 40 mg 3-24 by mouth ity of tablet 15:09: daily. [address] tranexamic No 2mg acid 650 mg 3-22 tablet 00:00: 00 TRULICITY 2021-0 Yes Inject 1.5 Un joellen 1.5 mg/0.5 3-21 MG BELOW ity o f mL PnIj 00:00: THE [address] Medical Branch TRULICITY 2021- Yes Inject 1.5 Un joellen 1.5 mg/0.5 3-21 MG BELOW ity o f mL PnIj 00:00: THE [facility] Medical Branch TRULICITY 2021-0 Yes Inject 1.5 Un joellen 1.5 mg/0.5 3-21 MG BELOW ity o f mL PnIj 00:00: THE [address] Medical Branch TRULICITY Yes Inject 1.5 Un joellen 1.5 mg/0.5 3-21 MG BELOW ity o f mL PnIj 00:00: THE [facility] [place] 00 WEEKLY Medical Branch TRULICITY 2022-0 Yes Inject 1.5 Un joellen 1.5 mg/0.5 3-21 MG BELOW ity o f mL PnIj 00:00: THE [facility] WEEKLY Medical Branch TRULICITY 2022-0 Yes Inject 1.5 Un joellen 1.5 mg/0.5 3-21 MG BELOW ity o f mL PnIj 00:00: THE [facility] WEEKLY Medical Branch TRULICITY 2022-0 Yes Inject 1.5 Un joellen 1.5 mg/0.5 3-21 MG BELOW ity o f mL PnIj 00:00: THE [facility] WEEKLY Medical Branch TRULICITY 2-0 Yes Inject 1.5 Un joellen 1.5 mg/0.5 3-21 MG BELOW ity o f mL PnIj 00:00: THE [facility] WEEKLY Medical Branch TRULICITY 2-0 Yes Inject 1.5 Un joellen 1.5 mg/0.5 3-21 MG BELOW ity o f mL PnIj 00:00: THE [facility] WEEKLY Medical Branch TRULICITY 2022-0 Yes Inject 1.5 Un joellen 1.5 mg/0.5 3-21 MG BELOW ity o f mL PnIj 00:00: THE [facility] WEEKLY Medical Branch TRULICITY 2022-0 Yes Inject 1.5 Un joellen 1.5 mg/0.5 3-21 MG BELOW ity o f mL PnIj 00:00: THE [facility] WEEKLY Medical Branch TRULICITY 2022-0 Yes Inject 1.5 Un joellen 1.5 mg/0.5 3-21 MG BELOW ity o f mL PnIj 00:00: THE [facility] WEEKLY Medical Branch TRULICITY 2022-0 Yes Inject 1.5 Un joellen 1.5 mg/0.5 3-21 MG BELOW ity o f mL PnIj 00:00: THE [facility] WEEKLY Medical Branch TRULICITY 2022-0 Yes Inject 1.5 Un joellen 1.5 mg/0.5 3-21 MG BELOW ity o f mL PnIj 00:00: THE [facility] WEEKLY Medical Branch TRULICITY 2022-0 Yes Inject 1.5 Un joellen 1.5 mg/0.5 3-21 MG BELOW ity o f mL PnIj 00:00: THE [address] Branch TRULICITY 2022-0 Yes Inject 1.5 Un joellen 1.5 mg/0.5 3-21 MG BELOW ity o f mL PnIj 00:00: THE [address] Branch Dose 2022-0 No Unknown 3-18 00:00: 00 Dose 2022-0 No Unknown 3-18 00:00: 00 Dose 2022-0 No Unknown 3-18 00:00: 00 Dose 2022-0 No Unknown 3-18 00:00: 00 Dose 2022-0 No Unknown 3-18 00:00: 00 Dose 2022-0 No Unknown 3-18 00:00: 00 Dose 2022-0 No Unknown 3-18 00:00: 00 Dose 2022-0 No Unknown 3-18 00:00: 00 Dose 2022-0 No Unknown 3-18 00:00: 00 Dose 2022-0 No Unknown 3-18 00:00: 00 Dose 2022-0 No Unknown 3-18 00:00: 00 Dose 2022-0 No Unknown 3-18 00:00: 00 Dose 2022-0 No Unknown 3-18 00:00: 00 Dose 2022-0 No Unknown 3-18 00:00: 00 Dose 2022-0 No Unknown 3-18 00:00: 00 Dose 2022-0 No Unknown 3-18 00:00: 00 Dose 2022-0 No Unknown 3-18 00:00: 00 Dose 2022-0 No Unknown 3-18 00:00: 00 Dose 2022-0 No Unknown 3-18 00:00: 00 Dose 2022-0 No Unknown 3-18 00:00: 00 Dose 2022-0 No Unknown 3-18 00:00: 00 Dose 2022-0 No Unknown 3-18 00:00: 00 Dose 2022-0 No Unknown 3-18 00:00: 00 Dose 2022-0 No Unknown 3-18 00:00: 00 Dose 2022-0 No Unknown 3-18 00:00: 00 Dose 2022-0 No Unknown 3-18 00:00: 00 Dose 2022-0 No Unknown 3-18 00:00: 00 Dose 2022-0 No Unknown 3-18 00:00: 00 Dose 2022-0 No Unknown 3-18 00:00: 00 Dose 2022-0 No Unknown 3-18 00:00: 00 Dose 2022-0 No Unknown 3-18 00:00: 00 Dose 2022-0 No Unknown 3-18 00:00: 00 Dose 2022-0 No Unknown 3-18 00:00: 00 Dose 2022-0 No Unknown 3-18 00:00: 00 Dose 2022-0 No Unknown 3-18 00:00: 00 Dose 2022-0 No Unknown 3-18 00:00: 00 Dose 2022-0 No Unknown 3-18 00:00: 00 Dose 2022-0 No Unknown 3-18 00:00: 00 Dose 2022-0 No Unknown 3-18 00:00: 00 Dose 2022-0 No Unknown 3-18 00:00: 00 Dose 2022-0 No Unknown 3-18 00:00: 00 Dose 2022-0 No Unknown 3-18 00:00: 00 Dose 2022-0 No Unknown 3-18 00:00: 00 Dose 2022-0 No Unknown 3-18 00:00: 00 Dose 2022-0 No Unknown 3-18 00:00: 00 Dose 2022-0 No Unknown 3-18 00:00: 00 Dose 2022-0 No Unknown 3-18 00:00: 00 Dose 2022-0 No Unknown 3-18 00:00: 00 Dose 2022-0 No Unknown 3-18 00:00: 00 Dose 2022-0 No Unknown 3-18 00:00: 00 Dose 2022-0 No Unknown 3-18 00:00: 00 Dose 2022-0 No Unknown 3-18 00:00: 00 Dose 2022-0 No Unknown 3-18 00:00: 00 Dose 2022-0 No Unknown 3-18 00:00: 00 Dose 2022-0 No Unknown 3-18 00:00: 00 Dose 2022-0 No Unknown 3-18 00:00: 00 Dose 2022-0 No Unknown 3-18 00:00: 00 Dose 2022-0 No Unknown 3-18 00:00: 00 Dose 2022-0 No Unknown 3-18 00:00: 00 Dose 2022-0 No Unknown 3-18 00:00: 00 Dose 2022-0 No Unknown 3-18 00:00: 00 Dose 2022-0 No Unknown 3-18 00:00: 00 Dose 2022-0 No Unknown 3-18 00:00: 00 Dose 2022-0 No Unknown 3-18 00:00: 00 Dose 2022-0 No Unknown 3-18 00:00: 00 Dose 2022-0 No Unknown 3-18 00:00: 00 Dose 2022-0 No Unknown 3-18 00:00: 00 Dose 2022-0 No Unknown 3-18 00:00: 00 lisinopril 2022-0 Yes [facility] ([address] [facility]) 00:00: of 2.5 MG 00 Medicin tablet e lisinopril 2-0 Yes [facility] ([address] [facility]) 00:00: of 2.5 MG 00 Medicin tablet e lisinopril 2-0 Yes [facility] ([address]) 00:00: of 2.5 MG 00 Medicin tablet e lisinopril 2021-0 Yes [facility] ([address]) 00:00: of 2.5 MG 00 Medicin tablet e lisinopril 2021-0 Yes [facility] ([address]) 00:00: of 2.5 MG 00 Medicin tablet e lisinopril 2-0 Yes [facility] ([address]) 00:00: of 2.5 MG 00 Medicin tablet e lisinopril 2-0 Yes [facility] ([address]) 00:00: of 2.5 MG 00 Medicin tablet e JARDIANCE 2021-0 Yes Univers 10 mg 1-18 ity of 00:00: [place] [facility] JARDIANCE 2021-0 Yes Univers 10 mg 1-18 ity of 00:00: [place] [facility] JARDIANCE 2021-0 Yes Univers 10 mg 1-18 ity of 00:00: [place] [facility] JARDIANCE 2021-0 Yes Univers 10 mg 1-18 ity of 00:00: [place] [facility] JARDIANCE 2021-0 Yes Univers 10 mg 1-18 ity of 00:00: [place] [facility] JARDIANCE 2021-0 Yes Univers 10 mg 1-18 ity of 00:00: [place] [facility] JARDIANCE 2022-0 Yes Univers 10 mg 1-18 ity of 00:00: Medical Branch JARDIANCE Yes Univers 10 mg 1-18 ity of 00:00: Medical Branch JARDIANCE Yes Univers 10 mg 1-18 ity of 00:00: Medical Branch JARDIANCE Yes Univers 10 mg 1-18 ity of 00:00: Medical Branch JARDIANCE Yes Univers 10 mg 1-18 ity of 00:00: Medical Branch JARDIANCE Yes Univers 10 mg 1-18 ity of 00:00: Medical Branch JARDIANCE Yes Univers 10 mg 1-18 ity of 00:: Medical Branch JARDIANCE Yes Univers 10 mg 1-18 ity of 00:: [place] [facility] JARDIANCE Yes Univers 10 mg 1-18 ity of 00:00: [place] [facility] JARDIANCE Yes Univers 10 mg 1-18 ity of 00:00: Medical Branch Ozempic No 1(5)/12 0.25 mg or 1-17 5-30(10 0.5 mg (2 00:00: ) mg/1.5 mL) 00 subcutaneou s pen injector Ozempic No 1(5)/12 0.25 mg or 1-17 5-30(10 0.5 mg (2 00:00: ) mg/1.5 mL) 00 subcutaneou s pen injector Jardiance No 5mg 25 mg 1-17 tablet 00:00: 00 Coreg 3.125 0 No 1mg mg tablet -17 00:00: 00 Coreg 3.125 0 No 1mg mg tablet -17 00:00: 00 atorvastati No 1mg n 40 mg -17 tablet 00:00: 00 Vitamin D3 0 No 1(5,000 125 mcg 1-17 unit) (5,000 00:00: unit) 00 tablet carvediloL 2020-10 Yes 3.125mg Take 3.125 Univers (COREG) 2-15 mg by ity of 3.125 mg 16:09: mouth 2 [place] tablet 12 (two) Medical times Branch daily with meals. carvediloL 2020-10 Yes 3.125mg Take 3.125 Univers (COREG) 2-15 mg by ity of 3.125 mg 16:09: mouth 2 [place] tablet 12 (two) Medical times Branch daily with meals. carvediloL 2020-10 Yes 3.125mg Take 3.125 Univers (COREG) 2-15 mg by ity of 3.125 mg 16:09: mouth 2 [place] tablet 12 (two) Medical times Branch daily with meals. carvediloL 2020-10 Yes 3.125mg Take 3.125 Univers (COREG) 2-15 mg by ity of 3.125 mg 16:09: mouth 2 [place] tablet 12 (two) Medical times Branch daily with meals. carvediloL 2020-10 Yes 3.125mg Take 3.125 Univers (COREG) 2-15 mg by ity of 3.125 mg 16:09: mouth 2 [place] tablet 12 (two) Medical times Branch daily with meals. carvediloL 2020-10 Yes 3.125mg Take 3.125 Univers (COREG) 2-15 mg by ity of 3.125 mg 16:09: mouth 2 [place] tablet 12 (two) Medical times Branch daily with meals. carvediloL 2020-10 Yes 3.125mg Take 3.125 Univers (COREG) 2-15 mg by ity of 3.125 mg 16:09: mouth 2 [place] tablet 12 (two) Medical times Branch daily with meals. carvediloL 2020-10 Yes 3.125mg Take 3.125 Univers (COREG) 2-15 mg by ity of 3.125 mg 16:09: mouth 2 [place] tablet 12 (two) Medical times Branch daily with meals. carvediloL 2020-10 Yes 3.125mg Take 3.125 Univers (COREG) 2-15 mg by ity of 3.125 mg 16:09: mouth 2 [place] tablet 12 (two) Medical times Branch daily with meals. carvediloL 2020-10 Yes 3.125mg Take 3.125 Univers (COREG) 2-15 mg by ity of 3.125 mg 16:09: mouth 2 [place] tablet 12 (two) Medical times Branch daily with meals. carvediloL 2021-1 Yes 3.125mg Take 3.125 Univers (COREG) 2-15 mg by ity of 3.125 mg 16:09: mouth 2 [place] tablet 12 (two) Medical times Branch daily with meals. carvediloL 2020-10 Yes 3.125mg Take 3.125 Univers (COREG) 2-15 mg by ity of 3.125 mg 16:09: mouth 2 [place] tablet 12 (two) Medical times Branch daily with meals. carvediloL 2020-10 Yes 3.125mg Take 3.125 Univers (COREG) 2-15 mg by ity of 3.125 mg 16:09: mouth 2 [place] tablet 12 (two) Medical times Branch daily with meals. carvediloL 2020-10 Yes 3.125mg Take 3.125 Univers (COREG) 2-15 mg by ity of 3.125 mg 16:09: mouth 2 [place] tablet 12 (two) Medical times Branch daily with meals. carvediloL 2020-10 Yes 3.125mg Take 3.125 Univers (COREG) 2-15 mg by ity of 3.125 mg 16:09: mouth 2 [place] tablet 12 (two) Medical times Branch daily with meals. carvediloL 2020-10 Yes 3.125mg Take 3.125 Univers (COREG) 2-15 mg by ity of 3.125 mg 16:09: mouth 2 [place] tablet 12 (two) Medical times Branch daily with meals. NON 2020-10 Yes Patient is [facility]-[address] 20:05: study. Hospita 04 Takes l medication daily. Protocol No. MGL-3196-1 1 atorvastati 2020-10 Yes 40mg QD Take 40 mg [facility] (LIPITOR) 1-[address] 40 mg 20:05: daily. Hospita tablet 04 l insulin 2020-10 Yes 18U [id number] Inject 18 [facility] aspart, 1-[id number] niacinamide 20:05: 3D under the H ospita , (FIASP 04 skin 3 l U-100 (three) INSULIN times a SUBQ) day with meals. insulin 2020-10 Yes 48U Q.5D Inject 48 Metho di degludec 1-[address] (TRESIBA 20:05: under the [facility] FLEXTOUCH 04 skin 2 l U-100 SUBQ) (two) times a day. metFORMIN 2020-10 Yes 1000mg Q.5D Take 1,000 [facility] (GLUCOPHAGE 1-[address] ) 1,000 mg 20:05: mouth 2 [facility] tablet 04 (two) l times a day. lisinopriL 2020-10 Yes 20mg QD Take 20 mg [facility] (PRINIVIL) 1-[address] 20 mg 20:05: daily. Hospita tablet 04 l NON 2020-10 Yes Patient is [facility] 1-[address] 20:05: study. Hospita 04 Takes l medication daily. Protocol No. MGL-3196-1 1 atorvastati 2020-10 Yes 40mg QD Take 40 mg [facility] (LIPITOR) 1-[address] 40 mg 20:05: daily. Hospita tablet 04 l insulin 2020-10 Yes 18U [id number] Inject 18 [facility] aspart, 1-[id number] niacinamide 20:05: 3D under the H ospita , (FIASP 04 skin 3 l U-100 (three) INSULIN times a SUBQ) day with meals. insulin 2020-10 Yes 48U Q.5D Inject 48 Metho di degludec 1-[address] (TRESIBA 20:05: under the [facility] FLEXTOUCH 04 skin 2 l U-100 SUBQ) (two) times a day. metFORMIN 2020-10 Yes 1000mg Q.5D Take 1,000 [facility] (GLUCOPHAGE 1-[address] ) 1,000 mg 20:05: mouth 2 [facility] tablet 04 (two) l times a day. lisinopriL 2020-10 Yes 20mg QD Take 20 mg [facility] (PRINIVIL) 1-[address] 20 mg 20:05: daily. Hospita tablet 04 l NON 2020-10 Yes Patient is [facility] 1-[address] 20:05: study. Hospita 04 Takes l medication daily. Protocol No. MGL-3196-1 1 atorvastati 2020-10 Yes 40mg QD Take 40 mg [facility] (LIPITOR) 1-[address] 40 mg 20:05: daily. Hospita tablet 04 l insulin 2020-10 Yes 18U [id number] Inject 18 [facility] aspart, 1-[id number] niacinamide 20:05: 3D under the H ospita , (FIASP 04 skin 3 l U-100 (three) INSULIN times a SUBQ) day with meals. insulin 2020-10 Yes 48U Q.5D Inject 48 Metho di degludec 1-[address] (TRESIBA 20:05: under the [facility] FLEXTOUCH 04 skin 2 l U-100 SUBQ) (two) times a day. metFORMIN 2020-10 Yes 1000mg Q.5D Take 1,000 [facility] (GLUCOPHAGE 1-[address] ) 1,000 mg 20:05: mouth 2 [facility] tablet 04 (two) l times a day. lisinopriL 2020-10 Yes 20mg QD Take 20 mg [facility] (PRINIVIL) 1-[address] 20 mg 20:05: daily. Hospita tablet 04 l NON 2020-10 Yes Patient is [facility] 1-[address] 20:05: study. Hospita 04 Takes l medication daily. Protocol No. MGL-3196-1 1 atorvastati 2020-10 Yes 40mg QD Take 40 mg [facility] (LIPITOR) 1-[address] 40 mg 20:05: daily. Hospita tablet 04 l insulin 2020-10 Yes 18U [id number] Inject 18 [facility] aspart, 1-[id number] niacinamide 20:05: 3D under the H ospita , (FIASP 04 skin 3 l U-100 (three) INSULIN times a SUBQ) day with meals. insulin 2020-10 Yes 48U Q.5D Inject 48 Metho di degludec 1-[address] (TRESIBA 20:05: under the [facility] FLEXTOUCH 04 skin 2 l U-100 SUBQ) (two) times a day. metFORMIN 2020-10 Yes 1000mg Q.5D Take 1,000 [facility] (GLUCOPHAGE 1-[address] ) 1,000 mg 20:05: mouth 2 [facility] tablet 04 (two) l times a day. lisinopriL 2020-10 Yes 20mg QD Take 20 mg [facility] (PRINIVIL) 1-[address] 20 mg 20:05: daily. Hospita tablet 04 l NON 2020-10 Yes Patient is [facility] 1-[address] 20:05: study. Hospita 04 Takes l medication daily. Protocol No. MGL-3196-1 1 atorvastati 2020-10 Yes 40mg QD Take 40 mg [facility] (LIPITOR) 1-[address] 40 mg 20:05: daily. Hospita tablet 04 l insulin 2020-10 Yes 18U [id number] Inject 18 [facility] aspart, 1-[id number] niacinamide 20:05: 3D under the H ospita , (FIASP 04 skin 3 l U-100 (three) INSULIN times a SUBQ) day with meals. insulin 2020-10 Yes 48U Q.5D Inject 48 Metho di degludec 1-[address] (TRESIBA 20:05: under the [facility] FLEXTOUCH 04 skin 2 l U-100 SUBQ) (two) times a day. metFORMIN 2020-10 Yes 1000mg Q.5D Take 1,000 [facility] (GLUCOPHAGE 1-[address] ) 1,000 mg 20:05: mouth 2 [facility] tablet 04 (two) l times a day. lisinopriL 2020-10 Yes 20mg QD Take 20 mg [facility] (PRINIVIL) 1-[address] 20 mg 20:05: daily. Hospita tablet 04 l carvediloL 2020-10- No 3.125mg Q.5D Take 1 [facility] (COREG) 10-[address] 3.125 MG 00:00: 05:59 (3.125 mg [facility] tablet 00 :00 total) by l mouth 2 (two) times a day for 90 days. carvediloL 2020-10- No 3.125mg Q.5D Take 1 [facility] (COREG) 10-[address] 3.125 MG 00:00: 05:59 (3.125 mg [facility] tablet 00 :00 total) by l mouth 2 (two) times a day for 90 days. carvediloL 2020-10- No 3.125mg Q.5D Take 1 M [facility] (COREG) 10-[address] 3.125 MG 00:00: 05:59 (3.125 mg [facility] tablet 00 :00 total) by l mouth 2 (two) times a day for 90 days. carvediloL 2020-10 No 3.125mg Q.5D Take 1 M [facility] (COREG) 10-[address] 3.125 MG 00:00: 05:59 (3.125 mg [facility] tablet 00 :00 total) by l mouth 2 (two) times a day for 90 days. hydrOXYzine 2020-10 No 25mg Q.[id number] Take 1 [facility] (ATARAX) 10-18 [id number] tablet (25 st MG tablet 00:00: 05:59 3D mg total) Ho spita 00 :00 by mouth 3 l (three) times a day as needed for itching for up to 14 days. hydrOXYzine 2020-10 No 25mg Q.[id number] Take 1 [facility] (ATARAX) 10-18 [id number] tablet (25 st MG tablet 00:00: 05:59 3D mg total) Ho spita 00 :00 by mouth 3 l (three) times a day as needed for itching for up to 14 days. hydrOXYzine 2020-10 No 25mg Q.[id number] Take 1 [facility] (ATARAX) 10-18 [id number] tablet (25 st MG tablet 00:00: 05:59 3D mg total) Ho spita 00 :00 by mouth 3 l (three) times a day as needed for itching for up to 14 days. hydrOXYzine 2020-10 No 25mg Q.[id number] Take 1 [facility] (ATARAX) 10-18 [id number] tablet (25 st MG tablet 00:00: 05:59 3D mg total) Ho spita 00 :00 by mouth 3 l (three) times a day as needed for itching for up to 14 days. methylPREDN 2020-10 No follow [facility] ISolone 10-[address] (Medrol, 00:00: 05:59 directions [facility],) 4 mg 00 :00 l tablet methylPREDN 2020-10- No follow [facility] ISolone 10-[address] (Medrol, 00:00: 05:59 directions Ho [facility],) 4 mg 00 :00 l tablet methylPREDN 2020-10 No follow [facility] ISolone 10-[address] (Medrol, 00:00: 05:59 directions Ho spita [facility],) 4 mg 00 :00 l tablet methylPREDN 2020-10 No follow [facility] ISolone 10-[address] (Medrol, 00:00: 05:59 directions Ho spita [facility],) 4 mg 00 :00 l tablet predniSONE 2020-10 No Take 2 [facility] (DELTASONE) 10-[address] 10 mg 00:00: 05:59 (20 mg Hospita tablet 00 :00 total) by l mouth daily for 1 day, THEN 1 tablet (10 mg total) daily for 1 day. predniSONE 2020-10- No Take 2 [facility] (DELTASONE) 10-[address] 10 mg 00:00: 05:59 (20 mg Hospita tablet 00 :00 total) by l mouth daily for 1 day, THEN 1 tablet (10 mg total) daily for 1 day. predniSONE 2020-10 No Take 2 [facility] (DELTASONE) 10-[address] 10 mg 00:00: 05:59 (20 mg Hospita tablet 00 :00 total) by l mouth daily for 1 day, THEN 1 tablet (10 mg total) daily for 1 day. predniSONE 2020-10- No Take 2 [facility] (DELTASONE) 10-[address] 10 mg 00:00: 05:59 (20 mg Hospita tablet 00 :00 total) by l mouth daily for 1 day, THEN 1 tablet (10 mg total) daily for 1 day. fexofenadin 2020-10 No 180mg Take 1 [facility] ([facility]) [facility]-[address] 180 MG 00:00: 05:59 (180 mg Hospita tablet 00 :00 total) by l mouth once for 1 dose. fexofenadin 2020-10 No 180mg Take 1 [facility] ([facility]) 1-14 11-[address] 180 MG 00:00: 05:59 (180 mg Hospita tablet 00 :00 total) by l mouth once for 1 dose. fexofenadin 2020-10- No 180mg Take 1 [facility] ([facility]) 10-18-[address] 180 MG 00:00: 05:59 (180 mg Hospita tablet 00 :00 total) by l mouth once for 1 dose. fexofenadin 2020-10- No 180mg Take 1 [facility] ([facility]) 10-18-[address] 180 MG 00:00: 05:59 (180 mg Hospita tablet 00 :00 total) by l mouth once for 1 dose. Tresiba 2020-0 No 1(3 mL) FlexTouch 9-24 U-100 00:00: insulin 100 00 unit/mL (3 mL) subcutaneou s pen Fiasp 2020-0 No 1(3 mL) FlexTouch 9-24 U-100 00:00: Insulin 100 00 unit/mL (3 mL) subcutaneou s pen lisinopril 2020-0 No 1mg 20 mg 9-24 tablet 00:00: 00 Dose 2020-0 No Unknown 9-24 00:00: 00 omeprazole 2020-0 No 1mg 40 mg 9-24 capsule,del 00:00: ayed 00 release loratadine 2020-0 No 1mg 10 mg 8-10 tablet 00:00: 00 Xulane 150 2020-0 No 1mcg/24 mcg-35 7-13 hr mcg/24 hr 00:00: transdermal 00 patch Flagyl 500 2020-0 No 1mg mg tablet 7-09 00:00: 00 atorvastati 2020-0 No 1mg n 40 mg 7-08 tablet 00:00: 00 metformin 2020-0 No 1mg 1,000 mg 7-07 tablet 00:00: 00 Novolog 1-0 No 1(3 mL) Flexpen 7-02 U-100 00:00: Insulin 00 aspart 100 unit/mL (3 mL) subcutaneou s Zoloft 100 2020-0 No 15mg mg tablet 5-15 00:00: 00 Novolin 2020-0 No unit/mL 70-30 4-21 (70-30) FlexPen 00:00: U-100 00 Insulin 100 unit/mL (70-30) subcutaneou s lisinopril 2020-0 No 1mg 20 mg 4-21 tablet 00:00: 00 Zoloft 50 2020-0 No 3mg mg tablet 4-21 00:00: 00 trazodone 2020-0 No 51mg 100 mg 3-01 tablet 00:00: 00 hydroxyzine 2020-0 No 2mg HCl 25 mg 2-20 tablet 00:00: 00 ProAir HFA 2020-0 No 12mcg/a 90 1-27 ctuatio mcg/actuati 00:00: n on aerosol 00 inhaler Novolin 2020-0 No unit/mL 70-30 1-14 (70-30) FlexPen 00:00: U-100 00 Insulin 100 unit/mL (70-30) subcutaneou s Novolog 2020-0 No 20(3 Flexpen 1-14 mL) U-100 00:00: Insulin 00 aspart 100 unit/mL (3 mL) subcutaneou s Zoloft 50 2020-0 No 3mg mg tablet 1-14 00:00: 00 lisinopril 2020-0 No 1mg 20 mg 1-14 tablet 00:00: 00 metformin 2020-0 No 1mg 1,000 mg 1-14 tablet 00:00: 00 atorvastati 2020-0 No 1mg n 40 mg 1-14 tablet 00:00: 00 omeprazole 2020-0 No 1mg 40 mg 1-14 capsule,del 00:00: ayed 00 release ProAir HFA 2020-0 No 2mcg/ac 90 1-13 tuation mcg/actuati 00:00: on aerosol 00 inhaler benzonatate 2020-0 No 1mg 200 mg 1-13 capsule 00:00: 00 benzonatate 1-0 No 1mg 200 mg 1-13 capsule 00:00: 00 azithromyci 2020-0 No 1mg n 250 mg 1-13 tablet 00:00: 00 Zoloft 50 2019-1 No 3mg mg tablet 2- 00:00: 00 Fosamax 70 2019-1 No 1mg mg tablet 2- 00:00: 00 loratadine 2019-1 No 1mg 10 mg 0-16 tablet 00:00: 00 metformin 2020-1 No 1mg 1,000 mg 0-16 tablet 00:00: 00 omeprazole 2020-1 No 1mg 40 mg 0-16 capsule,del 00:00: ayed 00 release lisinopril 2020-0 No 1mg 20 mg 9-10 tablet 00:00: 00 atorvastati 2020-0 No 1mg n 40 mg 9-10 tablet 00:00: 00 Novolin 2020-0 No unit/mL 70-30 8-26 (70-30) FlexPen 00:00: U-100 00 Insulin 100 unit/mL (70-30) subcutaneou s triamcinolo 2020-0 No 1% ne 8-26 acetonide 00:00: 0.1 % 00 topical ointment omeprazole 2020-0 No 1mg 40 mg 7-30 capsule,del 00:00: ayed 00 release Flagyl 500 2020-0 No 1mg mg tablet 7 00:00: 00 metformin 2020-0 No 1mg 1,000 mg 7-24 tablet 00:00: 00 triamcinolo 2020-0 No 1% ne 7-23 acetonide 00:00: 0.1 % 00 topical ointment Novolin 2020-0 No unit/mL 70-30 5-19 (70-30) FlexPen 00:00: U-100 00 Insulin 100 unit/mL (70-30) subcutaneou s lisinopril 2020-0 No 1mg 20 mg 5-19 tablet 00:00: 00 atorvastati 2020-0 No 1mg n 40 mg 5-19 tablet 00:00: 00 Macrobid 2020-0 No 1mg 100 mg 5-15 capsule 00:00: 00 Novolin 2020-0 No unit/mL 70-30 4-08 (70-30) FlexPen 00:00: U-100 00 Insulin 100 unit/mL (70-30) subcutaneou s Flagyl 500 2020-0 No 1mg mg tablet 4-08 00:00: 00 cephalexin 2020-0 No 1mg 500 mg 4-03 capsule 00:00: 00 nitrofurant 2020-0 No 1mg oin 3-23 macrocrysta 00:00: l 100 mg 00 capsule amoxicillin 2020-0 No 1mg 875 mg 2-22 tablet 00:00: 00 Novolin 2020-0 No 30unit/ 70-30 2-12 mL FlexPen 00:00: (70-30) U-100 00 Insulin 100 unit/mL (70-30) subcutaneou s nitrofurant 2020-0 No 1mg oin 2-12 macrocrysta 00:00: l 100 mg 00 capsule Levemir 2020-0 No (3 mL) FlexTouch 2-04 U-100 00:00: Insulin 100 00 unit/mL (3 mL) subcutaneou s pen Novolog 2020-0 No 15(3 Flexpen 2-04 mL) U-100 00:00: Insulin 00 aspart 100 unit/mL (3 mL) subcutaneou s Zoloft 50 2019-0 No 3mg mg tablet 2-04 00:00: 00 loratadine 2020-0 No 1mg 10 mg 2-04 tablet 00:00: 00 lisinopril 2020-0 No 1mg 20 mg 2-04 tablet 00:00: 00 loratadine 2020-0 No 1mg 10 mg 2-04 tablet 00:00: 00 metformin 2020-0 No 1mg 1,000 mg 2-04 tablet 00:00: 00 atorvastati 2020-0 No 1mg n 40 mg 2-04 tablet 00:00: 00 hydroxyzine 2020-0 No 2mg HCl 25 mg 2-04 tablet 00:00: 00 metFORMIN 2018-10 Yes 1000mg Take 1,000 [facility] 1,000 mg 2-18 mg by ity of tablet 00:00: mouth (two) Medical times Branch daily. metFORMIN 2018-10 Yes 1000mg Take 1,000 Univers 1,000 mg 2-18 mg by ity of tablet 00:00: mouth (two) Medical times Branch daily. metFORMIN 2018-10 Yes 1000mg Take 1,000 Univers 1,000 mg 2-18 mg by ity of tablet 00:00: mouth 2 (two) Medical times Branch daily. metFORMIN 2018-10 Yes 1000mg Take 1,000 Univers 1,000 mg 2-18 mg by ity of tablet 00:00: mouth 2 (two) Medical times Branch daily. metFORMIN 2018-10 Yes 1000mg Take 1,000 Univers 1,000 mg 2-18 mg by ity of tablet 00:00: mouth 2 (two) Medical times Branch daily. metFORMIN 2018-10 Yes 1000mg Take 1,000 Univers 1,000 mg 2-18 mg by ity of tablet 00:00: mouth 2 00 (two) Medical times Branch daily. metFORMIN 2018-10 Yes 1000mg Take 1,000 Univers 1,000 mg 2-18 mg by ity of tablet 00:00: mouth 2 00 (two) Medical times Branch daily. metFORMIN 2018-10 Yes 1000mg Take 1,000 Univers 1,000 mg 2-18 mg by ity of tablet 00:00: mouth 2 00 (two) Medical times Branch daily. metFORMIN 2018-10 Yes 1000mg Take 1,000 Univers 1,000 mg 2-18 mg by ity of tablet 00:00: mouth 2 (two) Medical times Branch daily. metFORMIN 2018-10 Yes 1000mg Take 1,000 [facility] 1,000 mg 2-18 mg by ity of tablet 00:00: mouth 2 (two) Medical times Branch daily. metFORMIN 2018-10 Yes 1000mg Take 1,000 Univers 1,000 mg 2-18 mg by ity of tablet 00:00: mouth (two) Medical times Branch daily. metFORMIN 2018-10 Yes 1000mg Take 1,000 Univers 1,000 mg 2-18 mg by ity of tablet 00:00: mouth 2 (two) Medical times Branch daily. metFORMIN 2018-10 Yes 1000mg Take 1,000 Univers 1,000 mg 2-18 mg by ity of tablet 00:00: mouth (two) Medical times Branch daily. metFORMIN 2018-10 Yes 1000mg Take 1,000 Univers 1,000 mg 2-18 mg by ity of tablet 00:00: mouth (two) Medical times Branch daily. metFORMIN 2018-10 Yes 1000mg Take 1,000 Univers 1,000 mg 2-18 mg by ity of tablet 00:00: mouth 2 00 (two) Medical times Branch daily. metFORMIN 2018-10 Yes 1000mg Take 1,000 Univers 1,000 mg 2-18 mg by ity of tablet 00:00: mouth 2 00 (two) Medical times Branch daily. Novolog 2018-10 No 15(3 Flexpen 1-13 mL) U-100 00:00: Insulin 00 aspart 100 unit/mL (3 mL) subcutaneou s lisinopril 2019-1 No 1mg 10 mg 0-16 tablet 00:00: 00 hydrochloro 2019-1 No 1mg thiazide 0-11 12.5 mg 00:00: tablet 00 Levemir 2019-1 No (3 mL) FlexTouch 0-10 U-100 00:00: Insulin 100 00 unit/mL (3 mL) subcutaneou s pen Novolog 2018-1 No 15(3 Flexpen 0-10 mL) U-100 00:00: Insulin 00 aspart 100 unit/mL (3 mL) subcutaneou s loratadine 2018-1 No 1mg 10 mg 0-10 tablet 00:00: 00 Zoloft 50 2018-1 No 3mg mg tablet 0-10 00:00: 00 metformin 2019-1 No 1mg 1,000 mg 0-10 tablet 00:00: 00 atorvastati 2018-1 No 1mg n 40 mg 0-10 tablet 00:00: 00 hydroxyzine 2018-1 No 2mg HCl 25 mg 0-05 tablet 00:00: 00 Zoloft 50 2018-1 No 1mg mg tablet 0-03 00:00: 00 Novolog 2019-0 No 15(3 Flexpen 9-10 mL) U-100 00:00: Insulin 00 aspart 100 unit/mL (3 mL) subcutaneou s meloxicam 2019-0 No 1mg 7.5 mg 8-08 tablet 00:00: 00 Tylenol-Cod 2019-0 No 1mg eine #3 300 8-08 mg-30 mg 00:00: tablet 00 Novolog 2019-0 No 15(3 Flexpen 7-02 mL) U-100 00:00: Insulin 00 aspart 100 unit/mL (3 mL) subcutaneou s loratadine 2018-0 No 1mg 10 mg 7-02 tablet 00:00: 00 metformin 2019-0 No 1mg 1,000 mg 7-02 tablet 00:00: 00 Zoloft 50 2019-0 No 1mg mg tablet 7-02 00:00: 00 Novolog 2019-0 No 15(3 Flexpen 6-26 mL) U-100 00:00: Insulin 00 aspart 100 unit/mL (3 mL) subcutaneou s Zantac 150 2019-0 No 1mg mg tablet 6-24 00:00: 00 Novolog 2019-0 No 15(3 Flexpen 4-29 mL) U-100 00:00: Insulin 00 aspart 100 unit/mL (3 mL) subcutaneou s loratadine 2019-0 No 1mg 10 mg 4-29 tablet 00:00: 00 metformin 2019-0 No 1mg 1,000 mg 4-29 tablet 00:00: 00 Zoloft 50 2019-0 No 1mg mg tablet 4-29 00:00: 00 hydroxyzine 2019-0 No 2mg HCl 25 mg 4-29 tablet 00:00: 00 Novolog 2019-0 No 15(3 Flexpen 4-22 mL) U-100 00:00: Insulin 00 aspart 100 unit/mL (3 mL) subcutaneou s hydroxyzine 2019-0 No 2mg HCl 25 mg 4-22 tablet 00:00: 00 Novolog 2019-0 No 15(3 Flexpen 2-14 mL) U-100 00:00: Insulin 00 aspart 100 unit/mL (3 mL) subcutaneou s Zoloft 50 2019-0 No 1mg mg tablet 2-14 00:00: 00 metformin 2019-0 No 1mg 1,000 mg 2-14 tablet 00:00: 00 Novolog 2018-1 No unit/mL U-100 1-26 Insulin 00:00: aspart 100 00 unit/mL subcutaneou s solution Zoloft 50 2018-1 No 1mg mg tablet 1-26 00:00: 00 metformin 2018-1 No 1mg 1,000 mg 1-26 tablet 00:00: 00 hydroxyzine 2018-1 No 2mg HCl 25 mg 1-26 tablet 00:00: 00 Novolog 2018-1 No unit/mL U-100 0-24 Insulin 00:00: aspart 100 00 unit/mL subcutaneou s solution hydroxyzine 2018-0 No 2mg HCl 25 mg 9-12 tablet 00:00: 00 Novolog 2018-0 No unit/mL U-100 9-11 Insulin 00:00: aspart 100 00 unit/mL subcutaneou s solution Zoloft 50 2018-0 No 1mg mg tablet 9-11 00:00: 00 metformin 2018-0 No 1mg 1,000 mg 9-11 tablet 00:00: 00 hydroxyzine 2018-0 No 1mg HCl 50 mg 9-11 tablet 00:00: 00 Novolog 2018-0 No 10unit/ U-100 8-01 mL Insulin 00:00: aspart 100 00 unit/mL subcutaneou s solution Novolog 2018-0 No unit/mL U-100 8-01 Insulin 00:00: aspart 100 00 unit/mL subcutaneou s solution paroxetine 2018-0 No 1mg 30 mg 8-01 tablet 00:00: 00 naproxen 2018-0 No 1mg sodium 550 8-01 mg tablet 00:00: 00 hydroxyzine 2018-0 No 1mg HCl 50 mg 8-01 tablet 00:00: 00 naproxen 2018-0 No 1mg sodium 550 6-29 mg tablet 00:00: 00 Novolog 2018-0 No 10unit/ U-100 6-26 mL Insulin 00:00: aspart 100 00 unit/mL subcutaneou s solution Novolog 2018-0 No 10unit/ U-100 6-26 mL Insulin 00:00: aspart 100 00 unit/mL subcutaneou s solution Novolog 2018-0 No 10unit/ U-100 6-26 mL Insulin 00:00: aspart 100 00 unit/mL subcutaneou s solution Novolog 2018-0 No 10unit/ U-100 6-06 mL Insulin 00:00: aspart 100 00 unit/mL subcutaneou s solution paroxetine 2018-0 No 1mg 30 mg 6-05 tablet 00:00: 00 metformin 2018-0 No 1mg 1,000 mg 6-05 tablet 00:00: 00 Novolog 2018-0 No 10unit/ U-100 5-14 mL Insulin 00:00: aspart 100 00 unit/mL subcutaneou s solution paroxetine 2018-0 No 1mg 30 mg 2-13 tablet 00:00: 00 cephalexin 2018-0 No 1mg 500 mg 2-05 capsule 00:00: 00 Loratadine- 2017-1 No 1mg D 10 mg-240 2-16 mg 00:00: tablet,exte 00 nded release 24 hr prednisone 2017-1 No 1mg 20 mg 2-16 tablet 00:00: 00 glipizide 2017-1 No 1mg 10 mg 2-16 tablet 00:00: 00 amoxicillin 2017-1 No 1mg 500 mg 2-16 capsule 00:00: 00 paroxetine 2017-1 No 1mg 30 mg 2-07 tablet 00:00: 00 paroxetine 2017-0 No 1mg 20 mg 9-20 tablet 00:00: 00 metformin 2017-0 No 1mg 1,000 mg 9-20 tablet 00:00: 00 paroxetine 2017-0 No 1mg 20 mg 7-19 tablet 00:00: 00 metformin 2017-0 No 1mg 1,000 mg 7-19 tablet 00:00: 00 glimepiride 2017-0 No 1mg 4 mg tablet 3-28 00:00: 00 metformin 2017-0 No 1mg 1,000 mg 3-28 tablet 00:00: 00 paroxetine 2017-0 No 1mg 10 mg 3-28 tablet 00:00: 00 paroxetine 2017-0 No 1mg 10 mg 1-03 tablet 00:00: 00 glimepiride 2017-0 No 1mg 4 mg tablet 1- 00:00: 00 metformin 2017-0 No 1mg 1,000 mg 1-03 tablet 00:00: 00 Immunizations Ordered Filled Immunization Date Status Comments [facility] e Immunization Name Name SARS-COV-2 COVID-19 2021-10-11 Completed Unive rsity of PFIZER VACCINE 00:00:00 [facility] SARS-COV-2 COVID-19 2021-10-11 Completed Unive rsity of PFIZER VACCINE 00:00:00 [facility] SARS-COV-2 COVID-19 2021-10-11 Completed Unive rsity of PFIZER VACCINE 00:00:00 [facility] SARS-COV-2 COVID-19 2021-10-11 Completed Unive rsity of PFIZER VACCINE 00:00:00 [facility] SARS-COV-2 COVID-19 2021-10-11 Completed Unive rsity of PFIZER VACCINE 00:00:00 [facility] SARS-COV-2 COVID-19 2021-10-11 Completed Unive rsity of PFIZER VACCINE 00:00:00 [facility] SARS-COV-2 COVID-19 2021-10-11 Completed Unive rsity of PFIZER VACCINE 00:00:00 [facility] SARS-COV-2 COVID-19 2021-10-11 Completed Unive rsity of PFIZER VACCINE 00:00:00 [facility] SARS-COV-2 COVID-19 2021-10-11 Completed Unive rsity of PFIZER VACCINE 00:00:00 [facility] SARS-COV-2 COVID-19 2021-10-11 Completed Unive rsity of PFIZER VACCINE 00:00:00 [facility] SARS-COV-2 COVID-19 2021-10-11 Completed Unive rsity of PFIZER VACCINE 00:00:00 [facility] SARS-COV-2 COVID-19 2021-10-11 Completed Unive rsity of PFIZER VACCINE 00:00:00 [facility] SARS-COV-2 COVID-19 2021-10-11 Completed Unive rsity of PFIZER VACCINE 00:00:00 [facility] SARS-COV-2 COVID-19 2021-10-11 Completed Unive rsity of PFIZER VACCINE 00:00:00 [facility] SARS-COV-2 COVID-19 2021-10-11 Completed Unive rsity of PFIZER VACCINE 00:00:00 [facility] SARS-COV-2 COVID-19 2021-10-11 Completed Unive rsity of PFIZER VACCINE 00:00:00 [facility] SARS-COV-2 COVID-19 2021-02-07 Completed Unive rsity of PFIZER VACCINE 00:00:00 [facility] SARS-COV-2 COVID-19 2021-02-07 Completed Unive rsity of PFIZER VACCINE 00:00:00 [facility] SARS-COV-2 COVID-19 2021-02-07 Completed Unive rsity of PFIZER VACCINE 00:00:00 [facility] SARS-COV-2 COVID-19 2021-02-07 Completed Unive rsity of PFIZER VACCINE 00:00:00 [facility] SARS-COV-2 COVID-19 2021-02-07 Completed Unive rsity of PFIZER VACCINE 00:00:00 [facility] SARS-COV-2 COVID-19 2021-02-07 Completed Unive rsity of PFIZER VACCINE 00:00:00 [facility] SARS-COV-2 COVID-19 2021-02-07 Completed Unive rsity of PFIZER VACCINE 00:00:00 [facility] SARS-COV-2 COVID-19 2021-02-07 Completed Unive rsity of PFIZER VACCINE 00:00:00 [facility] SARS-COV-2 COVID-19 2021-02-07 Completed Unive rsity of PFIZER VACCINE 00:00:00 [facility] SARS-COV-2 COVID-19 2021-02-07 Completed Unive rsity of PFIZER VACCINE 00:00:00 [facility] SARS-COV-2 COVID-19 2021-02-07 Completed Unive rsity of PFIZER VACCINE 00:00:00 [facility] SARS-COV-2 COVID-19 2021-02-07 Completed Unive rsity of PFIZER VACCINE 00:00:00 [facility] SARS-COV-2 COVID-19 2021-02-07 Completed Unive rsity of PFIZER VACCINE 00:00:00 [facility] SARS-COV-2 COVID-19 2021-02-07 Completed Unive rsity of PFIZER VACCINE 00:00:00 [facility] SARS-COV-2 COVID-19 2021-02-07 Completed Unive rsity of PFIZER VACCINE 00:00:00 [facility] SARS-COV-2 COVID-19 2021-02-07 Completed Unive rsity of PFIZER VACCINE 00:00:00 [facility] SARS-COV-2 COVID-19 2021-01-14 Completed Unive rsity of PFIZER VACCINE 00:00:00 [facility] SARS-COV-2 COVID-19 2021-01-14 Completed Unive rsity of PFIZER VACCINE 00:00:00 [facility] SARS-COV-2 COVID-19 2021-01-14 Completed Unive rsity of PFIZER VACCINE 00:00:00 [facility] SARS-COV-2 COVID-19 2021-01-14 Completed Unive rsity of PFIZER VACCINE 00:00:00 [facility] SARS-COV-2 COVID-19 2021-01-14 Completed Unive rsity of PFIZER VACCINE 00:00:00 [facility] SARS-COV-2 COVID-19 2021-01-14 Completed Unive rsity of PFIZER VACCINE 00:00:00 [facility] SARS-COV-2 COVID-19 2021-01-14 Completed Unive rsity of PFIZER VACCINE 00:00:00 [facility] SARS-COV-2 COVID-19 2021-01-14 Completed Unive rsity of PFIZER VACCINE 00:00:00 [facility] SARS-COV-2 COVID-19 2021-01-14 Completed Unive rsity of PFIZER VACCINE 00:00:00 [facility] SARS-COV-2 COVID-19 2021-01-14 Completed Unive rsity of PFIZER VACCINE 00:00:00 [facility] SARS-COV-2 COVID-19 2021-01-14 Completed Unive rsity of PFIZER VACCINE 00:00:00 [facility] SARS-COV-2 COVID-19 2021-01-14 Completed Unive rsity of PFIZER VACCINE 00:00:00 [facility] SARS-COV-2 COVID-19 2021-01-14 Completed Unive rsity of PFIZER VACCINE 00:00:00 [facility] SARS-COV-2 COVID-19 2021-01-14 Completed Unive rsity of PFIZER VACCINE 00:00:00 [facility] SARS-COV-2 COVID-19 2021-01-14 Completed Unive rsity of PFIZER VACCINE 00:00:00 [facility] SARS-COV-2 COVID-19 2021-01-14 Completed Unive rsity of PFIZER VACCINE 00:00:00 [facility] Influenza, 2020-07-20 Completed seasonal, inj 00:00:00 TDAP 2020-07-20 Completed University of 00:00:00 [facility] TDAP 2020-07-20 Completed University of 00:00:00 [facility] TDAP 2020-07-20 Completed University of 00:00:00 [facility] TDAP 2020-07-20 Completed University of 00:00:00 [facility] TDAP 2020-07-20 Completed University of 00:00:00 [facility] TDAP 2020-07-20 Completed University of 00:00:00 [facility] TDAP 2020-07-20 Completed University of 00:00:00 [facility] TDAP 2020-07-20 Completed University of 00:00:00 [facility] TDAP 2020-07-20 Completed University of 00:00:00 [facility] TDAP 2020-07-20 Completed University of 00:00:00 [facility] TDAP 2020-07-20 Completed University of 00:00:00 [facility] TDAP 2020-07-20 Completed University of 00:00:00 [facility] TDAP 2020-07-20 Completed University of 00:00:00 [facility] TDAP 2020-07-20 Completed University of 00:00:00 [facility] TDAP 2020-07-20 Completed [facility] of 00:00:00 [facility] TDAP 2020-07-20 Completed University of 00:00:00 [facility] Influenza, 2019-07-20 Completed seasonal, inj 00:00:00 TDAP 2017-08-19 Completed University of 00:00:00 [facility] TDAP 2017-08-19 Completed University of 00:00:00 [facility] TDAP 2017-08-19 Completed University of 00:00:00 [facility] TDAP 2017-08-19 Completed University of 00:00:00 [facility] TDAP 2017-08-19 Completed University of 00:00:00 [facility] TDAP 2017-08-19 Completed University of 00:00:00 [facility] TDAP 2017-08-19 Completed University of 00:00:00 [facility] TDAP 2017-08-19 Completed University of 00:00:00 [facility] TDAP 2017-08-19 Completed University of 00:00:00 [facility] TDAP 2017-08-19 Completed University of 00:00:00 [facility] TDAP 2017-08-19 Completed University of 00:00:00 [facility] TDAP 2017-08-19 Completed University of 00:00:00 [facility] TDAP 2017-08-19 Completed University of 00:00:00 [facility] TDAP 2017-08-19 Completed University of 00:00:00 [facility] TDAP 2017-08-19 Completed University of 00:00:00 [facility] TDAP 2017-08-19 Completed University of 00:00:00 [facility] Influenza, 2017-08-06 Completed seasonal, inj 00:00:00 Vital Signs Vital Name Observation Time Observation Value Comments Source Systolic blood 2023-01-21 21:16:00 133 mm[Hg] Univer sity of pressure [facility] Diastolic blood 2023-01-21 21:16:00 83 mm[Hg] Unive rsity of pressure [facility] Heart rate 2023-01-21 21:16:00 105 /min [facility] Body temperature 2023-01-21 21:16:00 36.39 Gina Univ ersity [facility] Body height 2023-01-21 21:16:00 165.1 cm [facility] Body weight 2023-01-21 21:16:00 78.2 kg [facility] BMI 2023-01-21 21:16:00 28.69 kg/m2 [facility] Oxygen saturation in 2023-01-21 21:16:00 99 /min University of Arterial blood by [facility] Pulse oximetry Branch Systolic blood 2023-01-02 00:42:00 138 mm[Hg] Univer [facility]ity of pressure [facility] Diastolic blood 2023-01-02 00:42:00 87 mm[Hg] Unive rsity of pressure [facility] Heart rate 2023-01-02 00:42:00 105 /min [facility] Body temperature 2023-01-02 00:42:00 37.11 Gina [facility] Respiratory rate 2023-01-02 00:42:00 16 /min Univ [facility] Body height 2023-01-02 00:42:00 165.1 cm [facility] Body weight 2023-01-02 00:42:00 78.472 kg [facility] BMI 2023-01-02 00:42:00 28.79 kg/m2 [facility] Oxygen saturation in 2023-01-02 00:42:00 99 /min University of Arterial blood by [facility] Pulse oximetry Branch Systolic blood 2022-12-29 13:32:00 119 mm[Hg] Univer [facility]ity of pressure [facility] Diastolic blood 2022-12-29 13:32:00 83 mm[Hg] Unive rsity of pressure [facility] Heart rate 2022-12-29 13:32:00 93 /min [facility] Body temperature 2022-12-29 13:32:00 36.72 Gina [facility] Respiratory rate 2022-12-29 13:32:00 18 /min Univ [facility] Body height 2022-12-29 13:32:00 165.1 cm [facility] Body weight 2022-12-29 13:32:00 78.019 kg [facility] BMI 2022-12-29 13:32:00 28.62 kg/m2 [facility] Systolic blood 2022-12-26 14:35:00 134 mm[Hg] [facility] Medicine Diastolic blood 2022-12-26 14:35:00 92 mm[Hg] [facility] Medicine Heart rate 2022-12-26 14:35:00 101 /min [facility] height 2022-12-26 14:35:00 165.1 cm [facility] Body weight 2022-12-26 14:35:00 78.472 kg [facility] BMI 2022-12-26 14:35:00 28.79 kg/m2 [facility] Heart rate 2022-11-06 02:20:00 92 /min [facility]i [facility] of [facility] Body temperature 2022-11-06 02:20:[address] [facility] Oxygen saturation in 2022-11-06 02:20:00 98 /min [facility] of Arterial blood by [facility] Pulse oximetry Branch Systolic blood 2022-11-06 02:00:00 125 mm[Hg] [facility] pressure [facility] Diastolic blood 2022-11-06 02:00:00 82 mm[Hg] [facility]ity of [facility] Respiratory rate 2022-11-06 02:00:00 15 /min [facility] Body height 2022-11-06 00:25:00 165.1 cm [facility] of [facility] Body weight 2022-11-06 00:25:00 74.844 kg [facility] BMI 2022-11-06 00:25:00 27.46 kg/m2 [facility]i ty of [facility] Systolic blood 2022-11-05 01:32:00 127 mm[Hg] Univer sity of pressure [facility] Diastolic blood 2022-11-05 01:32:00 79 mm[Hg] Unive rsity of pressure [facility] Heart rate 2022-11-05 01:32:00 102 /min [facility]i [facility] of [facility] Body temperature 2022-11-05 01:32:00 36.89 [facility] Respiratory rate 2022-11-05 01:32:00 16 /min Univ ersity of [facility] Body height 2022-11-05 01:32:00 165.1 cm [facility] Body weight 2022-11-05 01:32:00 79.153 kg [facility] BMI 2022-11-05 01:32:00 29.04 kg/m2 [facility] Oxygen saturation in 2022-11-05 01:32:00 100 /min [facility] Arterial blood by [facility] Pulse oximetry Branch Systolic blood 2022-10-10 17:13:00 136 mm[Hg] [facility] pressure Medicine Diastolic blood 2022-10-10 17:13:00 84 mm[Hg] [facility] Medicine Heart rate 2022-10-10 17:13:00 91 /min [facility] Body height 2022-10-10 17:13:00 165.1 cm [facility] Body weight 2022-10-10 17:13:00 76.204 [facility] BMI 2022-10-10 17:13:00 27.96 kg/m2 [facility] Systolic blood 2022-09-05 02:06:00 138 mm[Hg] Univer [facility]ity of pressure [facility] Diastolic blood 2022-09-05 02:06:00 91 mm[Hg] [facility]ive rsity of pressure [facility] Heart rate 2022-09-05 02:05:00 100 /min [facility] Body temperature 2022-09-05 02:05:00 36.94 Gina [facility] Respiratory rate 2022-09-05 02:05:00 17 /min [facility] Body height 2022-09-05 02:05:00 165.1 cm [facility] Body weight 2022-09-05 02:05:00 75.705 kg [facility] BMI 2022-09-05 02:05:00 27.77 kg/m2 [facility] Oxygen saturation in 2022-09-05 02:05:00 100 /min [facility] Arterial blood by [facility] Pulse oximetry Branch Systolic blood 2022-08-05 14:21:00 122 mm[Hg] [facility] pressure Medicine Diastolic blood 2022-08-05 14:21:00 76 mm[Hg] [facility] Medicine Heart rate 2022-08-05 14:21:00 76 /min [facility] Medicine Body temperature 2022-08-05 14:21:00 37 Gina [facility] Body height 2022-08-05 14:21:00 165.1 cm [facility] ol[facility] of Medicine Body weight 2022-08-05 14:21:00 77.293 kg [facility] of Medicine BMI 2022-08-05 14:21:00 28.36 kg/m2 [facility] of Medicine Systolic blood 2022-07-03 20:08:00 120 mm[Hg] [facility] Medicine Diastolic blood 2022-07-03 20:08:00 84 mm[Hg] [facility] Medicine Heart rate 2022-07-03 20:08:00 101 /min [facility] Medicine Body height 2022-07-03 20:08:00 165.1 cm [facility] Medicine Body weight 2022-07-03 20:08:00 77.565 kg [facility] Medicine BMI 2022-07-03 20:08:00 28.46 kg/m2 [facility] Medicine Systolic blood 2022-07-01 15:48:00 120 mm[Hg] [facility] Medicine Diastolic blood 2022-07-01 15:48:00 80 mm[Hg] [facility] Body height 2022-07-01 15:48:00 165.1 cm [facility] Body weight 2022-07-01 15:48:00 82.101 kg [facility] Medicine BMI 2022-07-01 15:48:00 30.12 kg/m2 [facility] of Medicine HEIGHT 2022-05-28 10:07:00 165.1 cm WEIGHT 2022-05-28 10:07:00 77.883 kg HEIGHT 2022-05-12 13:45:00 165.1 cm WEIGHT 2022-05-12 13:45:00 78.926 kg HEIGHT 2022-05-28 10:07:00 165.1 cm WEIGHT 2022-05-28 10:07:00 77.883 kg HEIGHT 2022-05-12 13:45:00 165.1 cm WEIGHT 2022-05-12 13:45:00 78.926 kg Systolic blood 2022-05-06 14:36:00 122 mm[Hg] [facility] Medicine Diastolic blood 2022-05-06 14:36:00 76 mm[Hg] [facility] Medicine Heart rate 2022-05-06 14:36:00 72 /min [facility] Body temperature 2022-05-06 14:36:00 37 Gina [facility] Body height 2022-05-06 14:36:00 165.1 cm [facility] Body weight 2022-05-06 14:36:00 82.373 kg [facility] BMI 2022-05-06 14:36:00 30.22 kg/m2 [facility] Systolic blood 2022-04-28 15:10:00 109 mm[Hg] Univer [facility]ity of pressure [facility] Diastolic blood 2022-04-28 15:10:00 78 mm[Hg] Unive rsity of pressure [facility] Heart rate 2022-04-28 15:10:00 125 /min Universi ty [facility] Body temperature 2022-04-28 15:10:00 36.89 Gina [facility] Respiratory rate 2022-04-28 15:10:00 18 /min Univ ersity of [facility] Body height 2022-04-28 15:10:00 165.1 cm [facility] Body weight 2022-04-28 15:10:00 80.74 kg Universi ty [facility] BMI 2022-04-28 15:10:00 29.62 kg/m2 [facility] BP Systolic 2022-06-25 10:07:00 132 mm[Hg] BP Diastolic 2022-06-25 10:07:00 87 mm[Hg] Weight Measured 2022-06-25 10:07:00 171.80 pounds Height Measured 2022-06-25 10:07:00 65.00 inches Body Temperature 2022-06-25 10:07:00 98.10 degrees Heart Rate 2022-06-25 10:07:00 106.00 /min Respiratory Rate 2022-06-25 10:07:00 16.00 /min Systolic blood 2022-05-28 13:54:00 141 mm[Hg] [facility] Diastolic blood 2022-05-28 13:54:00 90 mm[Hg] [facility] Heart rate 2022-05-28 13:54:00 106 /min [facility] Respiratory rate 2022-05-28 13:54:00 20 /min [facility] Oxygen saturation in 2022-05-28 13:54:00 99 /min [facility] Arterial blood by Medical Ce nter Pulse oximetry Body temperature 2022-05-28 13:05:00 36.39 Gina [facility] Body height 2022-05-28 10:07:00 165.1 cm [facility] Body weight 2022-05-28 10:07:00 77.883 kg [facility] BMI 2022-05-28 10:07:00 28.57 kg/m2 [facility] BP Systolic 2021-12-24 11:29:00 125 mm[Hg] BP Diastolic 2021-12-24 11:29:00 84 mm[Hg] Weight Measured 2021-12-24 11:29:00 200.00 pounds Height Measured 2021-12-24 11:29:00 65.00 inches Body Temperature 2021-12-24 11:29:00 97.80 degrees Heart Rate 2021-12-24 11:29:00 96.00 /min Respiratory Rate 2021-12-24 11:29:00 BP Systolic 2021-12-20 16:11:00 122 mm[Hg] BP Diastolic 2021-12-20 16:11:00 85 mm[Hg] Weight Measured 2021-12-20 16:11:00 204.60 pounds Height Measured 2021-12-20 16:11:00 65.00 inches Body Temperature 2021-12-20 16:11:00 98.60 degrees Heart Rate 2021-12-20 16:11:00 104.00 /min Respiratory Rate 2021-12-20 16:11:00 BP Systolic 2021-10-21 13:22:00 121 mm[Hg] BP Diastolic 2021-10-21 13:22:00 87 mm[Hg] Weight Measured 2021-10-21 13:22:00 212.00 pounds Height Measured 2021-10-21 13:22:00 65.00 inches Body Temperature 2021-10-21 13:22:00 98.60 degrees Heart Rate 2021-10-21 13:22:00 81.00 /min Respiratory Rate 2021-10-21 13:22:00 16.00 /min Systolic blood 2021-08-18 23:39:22 130 mm[Hg] [facility] pressure Diastolic blood 2021-08-18 23:39:22 74 mm[Hg] [facility] pressure Heart rate 2021-08-18 23:39:22 103 /min [facility] Body temperature 2021-08-18 23:39:22 36.94 Gina [facility] Respiratory rate 2021-08-18 23:39:22 18 /min [facility] Oxygen saturation in 2021-08-18 23:39:22 96 /min [facility] Arterial blood by Pulse oximetry BMI 2021-08-16 22:00:00 38.27 kg/m2 [facility] Body height 2021-08-16 22:00:00 165.1 cm [facility] Body weight 2021-08-16 22:00:00 104.327 kg [facility] BP Systolic 2021-07-17 09:45:00 134 mm[Hg] BP Diastolic 2021-07-17 09:45:00 87 mm[Hg] Weight Measured 2021-07-17 09:45:00 230.60 pounds Height Measured 2021-07-17 09:45:00 65.00 inches Body Temperature 2021-07-17 09:45:00 98.20 degrees Heart Rate 2021-07-17 09:45:00 83.00 /min Respiratory Rate 2021-07-17 09:45:00 16.00 /min BP Systolic 2021-06-28 16:36:00 123 mm[Hg] BP Diastolic 2021-06-28 16:36:00 85 mm[Hg] Weight Measured 2021-06-28 16:36:00 234.20 pounds Height Measured 2021-06-28 16:36:00 65.00 inches Body Temperature 2021-06-28 16:36:00 98.70 degrees Heart Rate 2021-06-28 16:36:00 106.00 /min Respiratory Rate 2021-06-28 16:36:00 16.00 /min BP Systolic 2021-06-07 13:49:00 BP Diastolic 2021-06-07 13:49:00 Weight Measured 2021-06-07 13:49:00 234.00 pounds Height Measured 2021-06-07 13:49:00 65.00 inches Body Temperature 2021-06-07 13:49:00 Heart Rate 2021-06-07 13:49:00 Respiratory Rate 2021-06-07 13:49:00 BP Systolic 2021-04-16 15:43:00 127 mm[Hg] BP Diastolic 2021-04-16 15:43:00 82 mm[Hg] Weight Measured 2021-04-16 15:43:00 236.10 pounds Height Measured 2021-04-16 15:43:00 65.00 inches Body Temperature 2021-04-16 15:43:00 Heart Rate 2021-04-16 15:43:00 110.00 /min Respiratory Rate 2021-04-16 15:43:00 BP Systolic 2021-04-15 16:59:00 136 mm[Hg] BP Diastolic 2021-04-15 16:59:00 95 mm[Hg] Weight Measured 2021-04-15 16:59:00 234.90 pounds Height Measured 2021-04-15 16:59:00 65.00 inches Body Temperature 2021-04-15 16:59:00 98.60 degrees Heart Rate 2021-04-15 16:59:00 118.00 /min Respiratory Rate 2021-04-15 16:59:00 Procedures Procedure Date / Time Performing Source Performed Clinician POCT URINALYSIS 2023-01-21 Cheryl Redding [facility] 21:28:00 [facility] POCT URINALYSIS 2023-01-02 Serjio Nunez [place] of 00:44:00 [facility] PATIENT FINANCIAL POLICY 2022-12-29 Doctor Unassigned, [facility] 13:14:38 Fedora [facility] EXTERNAL PROVIDER RECORDS 2022-11-17 Doctor Unassigned, Uni versity of 06:01:00 Fedora [facility] POCT GLUCOSE (AUTOMATED) 2022-11-06 Sienna Watson [facility] ity of 02:13:00 [facility] LACTIC ACID WHOLE BLOOD 2022-11-06 Sienna Watsoni ty of 01:02:00 [facility] TROPONIN I 2022-11-06 Sienna Watson of 00:58:00 [facility] COMP. METABOLIC PANEL ([id number]) 2022-11-06 Sienna Watson iversity of 00:58:00 [facility] CBC WITH DIFF 2022-11-06 Sienna Watson of 00:58:00 [facility] URINALYSIS 2022-11-06 Sienna Watson of 00:58:00 [facility] RAPID INFLUENZA A/B 2022-11-06 Sienna Watson o f 00:58:00 [facility] N-TERMINAL PRO-BNP 2022-11-06 Sienna Watson of 00:58:00 [facility] COVID-19 (ID NOW RAPID TESTING) 2022-11-06 Sienna Watson [place] of 00:58:00 [facility] POCT GLUCOSE (AUTOMATED) 2022-11-06 Sienna Watson [facility] ity of 00:24:00 [facility] CONSENT/REFUSAL FOR DIAGNOSIS AND 2022-11-06 Doctor Ruben escalante, [place] of [facility] 00:21:02 Fedora [facility] POCT URINALYSIS 2022-11-05 Kelly Martines [place] of 01:33:00 [facility] AMB REF TO PT EXTERNAL 2022-10-10 [facility] Co llege of 11:35:14 Medicine VITAMIN B12 2022-08-07 [facility] o f 09:42:53 Medicine NIACIN (VITAMIN B3) 2022-08-07 [facility] ge of 09:42:53 Medicine FOLATE RBC 2022-08-07 [facility] o f 09:42:53 Medicine PANTOTHENIC ACID 2022-08-07 [facility] of 09:42:53 Medicine VITAMIN B1 2022-08-07 [facility] o f 09:42:53 Medicine VITAMIN B6 2022-08-07 [facility] o f 09:42:53 Medicine AMD REF TO GI LABOR SPECIALIST 2022-08-05 [facility] ollege of 09:43:44 Medicine AMB REF TO GENERAL SURGERY [facility] 2022-07-01 [facility] 11:11:02 Medicine EGD WITH ENDOFLIP 2022-05-29 [facility] 15:39:30 Medicine REPORT OF PROCEDURE - ENDOSCOPY 2022-05-28 Jil Adams Jenaro valdes [facility] URL 13:00:23 [facility] ESOPHAGOGASTRODUODENOSCOPY 2022-05-28 Jil Adams [address] [facility] 11:58:00 [facility] ESOPHAGEAL BALLOON PROVOCATION 2022-05-28 Jli Adams Rajwinder duran [facility] STUDY 11:58:00 [facility] ESOPHAGOGASTRODUODENOSCOPY, WITH 2022-05-28 [place] Jil Henrry [facility] SUBMUCOSAL INJECTION 11:58:[address] [facility] [address] POCT-GLUCOSE METER 2022-05-28 [place] Jil Sales [facility] 10:34:00 [facility] POCT , URINE 2022-05-28 Bernard Nilda [facility] 10:08:00 [facility] POCT URINALYSIS W/O SPECIFIC 2022-04-28 Selena Toussaint versity of GRAVITY 00:00:00 [facility] POC GLUCOSE 2021-08-18 Mansi Romo 23:36:00 Hospital US DUPLEX VENOUS UPPER EXTREMITY 2021-08-18 Bouchra Tee BILATERAL 19:20:00 Hospital POC GLUCOSE 2021-08-18 Mansi Romo 18:42:[address] CHEST WO CONTRAST 2021-08-18 Bouchra Tee 17:47:05 Hospital POC GLUCOSE 2021-08-18 Mansi Romo 13:55:00 Hospital HC COMPLETE BLD COUNT W/AUTO DIFF 2021-08-18 Bouchra Tee 09:52:00 Hospital BASIC METABOLIC PANEL 2021-08-18 Bouchra Tee 09:44:00 Hospital ESTIMATED GFR 2021-08-18 Bouchra Tee 09:44:00 Hospital POC GLUCOSE 2021-08-18 Mansi Romo 03:23:00 Hospital POC GLUCOSE 2021-08-17 Mansi Romo 23:35:00 Hospital POC GLUCOSE 2021-08-17 Mansi Romo 18:12:00 Hospital TTE COMPLETE, WO CONTRAST, W 2021-08-17 Mario London DOPPLER ([id number]) 16:57:45 [facility] POC GLUCOSE 2021-08-17 Mansi Romo 15:40:00 Hospital MRI BRAIN WO CONTRAST 2021-08-[address] 09:22:00 [place] [id number] ANTI-SPIKE IGG ANTIBODY 2021-08-17 Zahira London TITER 03:43:00 [place] [id number] SEROLOGY PATIENT 2021-08-17 Mario London [facility] SURVEILLANCE 03:43:00 [facility] LACTIC ACID LEVEL, SEPSIS - NOW 2021-08-17 Eliza London AND REPEAT 2X EVERY 3 HOURS 03:43:00 [facility] ital TROPONIN 2021-08-17 Mario London 03:43:00 [facility] POC GLUCOSE 2021-08-17 Neptali Knight 03:19:00 Hospital TROPONIN, I-STAT 2021-08-17 Mario London 01:49:00 [facility] LACTIC ACID LEVEL, SEPSIS - NOW 2021-08-17 Eliza London AND REPEAT 2X EVERY 3 HOURS 01:49:[address] [facility] ital [address] ANGIOGRAM NECK W WO CONTRAST 2021-08-17 Malaika Lemus 00:34:54 [facility] CT ANGIOGRAM HEAD W WO CONTRAST 2021-08-17 Malaika Lemus 00:34:43 [facility] XR CHEST 1 VW PORTABLE 2021-08-17 Malaika Lemus 00:07:[address] [facility] [address] HEAD WO CONTRAST 2021-08-17 Malaika Lemus 00:07:39 [facility] COVID-19 QUALITATIVE RT-PCR 2021-08-16 Malaika Lemus odist 22:38:00 [facility] HC COMPLETE BLD COUNT W/AUTO DIFF 2021-08-16 Malaika Lemus 22:38:00 [facility] COMPREHENSIVE METABOLIC PANEL 2021-08-16 Malaika Lemus thodist 22:38:00 [facility] TROPONIN, I-STAT 2021-08-16 Mario Londonist 22:38:00 [facility] B NATRIURETIC PEPTIDE 2021-08-16 Malaika Lemus 22:38:00 [facility] LACTIC ACID LEVEL, SEPSIS - NOW 2021-08-16 Eliza [facility] AND REPEAT 2X EVERY 3 HOURS 22:38:00 [facility] ital ESTIMATED GFR 2021-08-16 Malaika Lemus 22:38:00 [facility] ECG 12-LEAD 2021-08-16 Malaika Lemus 22:27:32 [facility] URINALYSIS 2021-08-16 Malaika Lemus 22:18:00 [facility] HCG QUALITATIVE, URINE SCREEN 2021-08-16 Malaika Lemus thodist 22:18:00 [facility] ECG ED PRELIMINARY INTERPRETATION 2021-08-16 Malaika Lemus 22:12:22 [facility] [id number] Ecg Routine Ecg W/least 12 2017-07-01 Lds W/i r 00:00:00 Plan of Care Planned Activity Planned Date Details Comments Source Future Scheduled 2030-07-20 DTAP/TDAP/TD VACCINES [facility] 00:00:00 (3 - Td or Tdap) [code Medic al Center = DTAP/TDAP/TD VACCINES (3 - Td or Tdap)] Future Scheduled 2030-07-20 DTAP/TDAP/TD VACCINES [facility] 00:00:00 (3 - Td or Tdap) [code Medic al Center = DTAP/TDAP/TD VACCINES (3 - Td or Tdap)] Future Scheduled 2030-07-20 DTAP/TDAP/TD VACCINES [facility] 00:00:00 (3 - Td or Tdap) [code Medic al Center = DTAP/TDAP/TD VACCINES (3 - Td or Tdap)] Future Scheduled 2030-07-20 DTAP/TDAP/TD VACCINES [facility] 00:00:00 (3 - Td or Tdap) [code Medic al Center = DTAP/TDAP/TD VACCINES (3 - Td or Tdap)] Future Scheduled 2023-02-08 Hepatitis C screening [facility] 17:03:20 (procedure) [code = Hospital 584471172] Future Scheduled 2023-02-08 Screening for malignant [facility] 17:03:20 neoplasm of cervix Hospital (procedure) [code = 615506357] Future Scheduled 2023-02-08 BREAST CANCER SCREENING [facility] 17:03:20 [code = BREAST CANCER Hospit al SCREENING] Future Scheduled 2023-02-08 COLONOSCOPY SCREENING [facility] 17:03:20 [code = COLONOSCOPY Hospital SCREENING] Future Scheduled 2023-02-08 COVID-19 VACCINE (4 - [facility] 17:03:20 Booster for Pfizer Hospital series) [code = COVID-19 VACCINE (4 - Booster for Pfizer series)] Future Scheduled 2023-02-08 INFLUENZA VACCINE [code [facility] 17:03:20 = INFLUENZA VACCINE] Hospita l Future Scheduled 2022-12-26 Screening for malignant [employer] Test 10:22:31 neoplasm of colon of Medicin e (procedure) [code = 738610838] Future Scheduled 2022-12-26 Screening for malignant [employer] Test 10:22:31 neoplasm of breast of Medici ne (procedure) [code = 897977748] Future Scheduled 2022-12-26 Diabetic foot [facility] Test 10:22:31 examination of Medicine (regime/therapy) [code = 721435996] Future Scheduled 2022-12-26 Annual Diabetic [facility] Test 10:22:31 Retinopathy Screening of Med icine [code = Annual Diabetic Retinopathy Screening] Future Scheduled 2022-12-26 BMI Follow Up Plan [employer] Test 10:22:31 [code = BMI Follow Up of Med icine Plan] Future Scheduled 2022-12-26 Human immunodeficiency B [facility] Test 10:22:31 virus screening of Medicine (procedure) [code = 922289184] Future Scheduled 2022-12-26 Hepatitis C screening [employer] Test 10:22:31 (procedure) [code = of Medic ine 793564063] Future Scheduled 2022-12-26 Screening for malignant [facility] Test 10:22:31 neoplasm of cervix of Medici ne (procedure) [code = 159648572] Future Scheduled 2022-12-26 COVID-19 Vaccine (4 - [employer] Test 10:22:31 Booster for Pfizer of Medici ne series) [code = COVID-19 Vaccine (4 - Booster for Pfizer series)] Future Scheduled 2022-12-26 FLU VACCINE > 6 MONTHS [employer] Test 10:22:31 [code = FLU VACCINE > 6 of M edicine MONTHS] Future Scheduled 2022-12-26 TETANUS SHOT (ADULT) [employer] Test 10:22:31 [code = TETANUS SHOT of Medi cine (ADULT)] Future Scheduled 2022-11-01 Screening for malignant [employer] Test 15:43:05 neoplasm of colon of Medicin e (procedure) [code = 188884923] Future Scheduled 2022-11-01 Screening for malignant [employer] Test 15:43:05 neoplasm of breast of Medici ne (procedure) [code = 950762287] Future Scheduled 2022-11-01 Diabetic foot [employer] Test 15:43:05 examination of Medicine (regime/therapy) [code = 314889693] Future Scheduled 2022-11-01 Annual Diabetic [facility] Test 15:43:05 Retinopathy Screening of Med icine [code = Annual Diabetic Retinopathy Screening] Future Scheduled 2022-11-01 BMI Follow Up Plan [employer] Test 15:43:05 [code = BMI Follow Up of Med icine Plan] Future Scheduled 2022-11-01 Human immunodeficiency [employer] Test 15:43:05 virus screening of Medicine (procedure) [code = 477890404] Future Scheduled 2022-11-01 Hepatitis C screening [employer] Test 15:43:05 (procedure) [code = of Medic ine 612882046] Future Scheduled 2022-11-01 Screening for malignant [employer] Test 15:43:05 neoplasm of cervix of Medici ne (procedure) [code = 893961965] Future Scheduled 2022-11-01 COVID-19 Vaccine (4 - [employer] Test 15:43:05 Booster for Pfizer of Medici ne series) [code = COVID-19 Vaccine (4 - Booster for Pfizer series)] Future Scheduled 2022-11-01 FLU VACCINE > 6 MONTHS [employer] Test 15:43:05 [code = FLU VACCINE > 6 of M edicine MONTHS] Future Scheduled 2022-11-01 TETANUS SHOT (ADULT) [employer] Test 15:43:05 [code = TETANUS SHOT of Medi cine (ADULT)] Future Scheduled 2022-10-12 Screening for malignant [facility] Test 15:31:34 neoplasm of colon of Medicin e (procedure) [code = 772874209] Future Scheduled 2022-10-12 Screening for malignant [facility] Test 15:31:34 neoplasm of breast of Medici ne (procedure) [code = 639787562] Future Scheduled 2022-10-12 Diabetic foot [facility] Test 15:31:34 examination of Medicine (regime/therapy) [code = 463810610] Future Scheduled 2022-10-12 Annual Diabetic [facility] Test 15:31:34 Retinopathy Screening of Med icine [code = Annual Diabetic Retinopathy Screening] Future Scheduled 2022-10-[address] Up [address] [facility] Test 15:31:34 [code = BMI Follow Up of Med icine Plan] Future Scheduled 2022-10-12 Human immunodeficiency B [facility] Test 15:31:34 virus screening of Medicine (procedure) [code = 660773469] Future Scheduled 2022-10-12 Hepatitis C screening [facility] Test 15:31:34 (procedure) [code = of Medic ine 876631836] Future Scheduled 2022-10-12 Screening for malignant [facility] Test 15:31:34 neoplasm of cervix of Medici ne (procedure) [code = 945079549] Future Scheduled 2022-10-12 COVID-19 Vaccine (4 - [employer] Test 15:31:34 Booster for Pfizer of Medici ne series) [code = COVID-19 Vaccine (4 - Booster for Pfizer series)] Future Scheduled 2022-10-12 FLU VACCINE > 6 MONTHS [employer] Test 15:31:34 [code = FLU VACCINE > 6 of M edicine MONTHS] Future Scheduled 2022-10-12 TETANUS SHOT (ADULT) [employer] Test 15:31:34 [code = TETANUS SHOT of Medi cine (ADULT)] Future Scheduled 2022-10-10 Screening for malignant [employer] Test 11:15:30 neoplasm of colon of Medicin e (procedure) [code = 138432096] Future Scheduled 2022-10-10 Screening for malignant [employer] Test 11:15:30 neoplasm of breast of Medici ne (procedure) [code = 216370718] Future Scheduled 2022-10-10 Diabetic foot [facility] Test 11:15:30 examination of Medicine (regime/therapy) [code = 658815277] Future Scheduled 2022-10-10 ANNUAL DIABETIC [facility] Test 11:15:30 RETINOPATHY SCREENING of Med icine [code = ANNUAL DIABETIC RETINOPATHY SCREENING] Future Scheduled 2022-10-10 BMI FOLLOW UP PLAN [employer] Test 11:15:30 [code = BMI FOLLOW UP of Med icine PLAN] Future Scheduled 2022-10-10 Hepatitis C screening [employer] Test 11:15:30 (procedure) [code = of Medic ine 306143962] Future Scheduled 2022-10-10 Human immunodeficiency [facility] Test 11:15:30 virus screening of Medicine (procedure) [code = 167106496] Future Scheduled 2022-10-10 Screening for malignant [facility] Test 11:15:30 neoplasm of cervix of Medici ne (procedure) [code = 554403218] Future Scheduled 2022-10-10 COVID-19 Vaccine (4 - [employer] Test 11:15:30 Booster for Pfizer of Medici ne series) [code = COVID-19 Vaccine (4 - Booster for Pfizer series)] Future Scheduled 2022-10-10 FLU VACCINE > 6 MONTHS [employer] Test 11:15:30 [code = FLU VACCINE > 6 of M edicine MONTHS] Future Scheduled 2022-10-10 TETANUS SHOT (ADULT) [employer] Test 11:15:30 [code = TETANUS SHOT of Medi cine (ADULT)] Future Scheduled 2022-08-10 Screening for malignant [employer] Test 20:13:53 neoplasm of colon of Medicin e (procedure) [code = 833486616] Future Scheduled 2022-08-10 Screening for malignant [facility] Test 20:13:53 neoplasm of breast of Medici ne (procedure) [code = 179663593] Future Scheduled 2022-08-10 Diabetic foot [employer] Test 20:13:53 examination of Medicine (regime/therapy) [code = 903218013] Future Scheduled 2022-08-10 ANNUAL DIABETIC [employer] [facility] Test 20:13:53 RETINOPATHY SCREENING of Med icine [code = ANNUAL DIABETIC RETINOPATHY SCREENING] Future Scheduled 2022-08-10 BMI FOLLOW UP PLAN [employer] Test 20:13:53 [code = BMI FOLLOW UP of Med icine PLAN] Future Scheduled 2022-08-10 Hepatitis C screening [facility] Test 20:13:53 (procedure) [code = of Medic ine 853862327] Future Scheduled 2022-08-10 Human immunodeficiency [facility] Test 20:13:53 virus screening of Medicine (procedure) [code = 334385824] Future Scheduled 2022-08-10 Screening for malignant [facility] Test 20:13:53 neoplasm of cervix of Medici ne (procedure) [code = 734291981] Future Scheduled 2022-08-10 COVID-19 Vaccine (4 - [facility] Test 20:13:53 Booster for Pfizer of Medici ne series) [code = COVID-19 Vaccine (4 - Booster for Pfizer series)] Future Scheduled 2022-08-10 FLU VACCINE > 6 MONTHS [facility] Test 20:13:53 [code = FLU VACCINE > 6 of M edicine MONTHS] Future Scheduled 2022-08-10 TETANUS SHOT (ADULT) [place] [facility] Test 20:13:53 [code = TETANUS SHOT of Medi cine (ADULT)] Future Scheduled 2022-08-07 Screening for malignant [facility] Test 09:53:30 neoplasm of colon of Medicin e (procedure) [code = 498781585] Future Scheduled 2022-08-07 Screening for malignant [facility] Test 09:53:30 neoplasm of breast of Medici ne (procedure) [code = 791988090] Future Scheduled 2022-08-07 Diabetic foot [employer] Test 09:53:30 examination of Medicine (regime/therapy) [code = 269079707] Future Scheduled 2022-08-07 ANNUAL DIABETIC [facility] Test 09:53:30 RETINOPATHY SCREENING of Med icine [code = ANNUAL DIABETIC RETINOPATHY SCREENING] Future Scheduled 2022-08-07 BMI FOLLOW UP PLAN [employer] Test 09:53:30 [code = BMI FOLLOW UP of Med icine PLAN] Future Scheduled 2022-08-07 Hepatitis C screening [facility] Test 09:53:30 (procedure) [code = of Medic ine 715751227] Future Scheduled 2022-08-07 Human immunodeficiency [facility] Test 09:53:30 virus screening of Medicine (procedure) [code = 149419851] Future Scheduled 2022-08-07 Screening for malignant [facility] Test 09:53:30 neoplasm of cervix of Medici ne (procedure) [code = 303532759] Future Scheduled 2022-08-07 COVID-19 Vaccine (4 - [facility] Test 09:53:30 Booster for Pfizer of Medici ne series) [code = COVID-19 Vaccine (4 - Booster for Pfizer series)] Future Scheduled 2022-08-07 FLU VACCINE > 6 MONTHS [facility] Test 09:53:30 [code = FLU VACCINE > 6 of M edicine MONTHS] Future Scheduled 2022-08-07 TETANUS SHOT (ADULT) [facility] Test 09:53:30 [code = TETANUS SHOT of Medi cine (ADULT)] Future Scheduled 2022-08-07 VITAMIN B1 [code = Ordered: [facility] Test 09:42:53 17549-3] 08/07/2022 of Medicine Future Scheduled 2022-08-07 VITAMIN B6 [code = Ordered: [facility] Test 09:42:53 37259-3] 08/07/2022 of Medicine Future Scheduled 2022-08-07 VITAMIN B12 [code = Ordered: [facility] Test 09:42:53 2132-9] 08/07/2022 of Medicine Future Scheduled 2022-08-07 NIACIN (VITAMIN B3) Ordered: [facility] or [facility] Test 09:42:53 [code = 27867] 08/07/2022 of Medicine Future Scheduled 2022-08-07 FOLATE RBC [code = Ordered: [facility] Test 09:42:53 2283-0] 08/07/2022 of Medicine Future Scheduled 2022-08-07 PANTOTHENIC ACID [code Ordered: [facility] Test 09:42:53 = NOCPT] 08/07/2022 of Medicine Future Scheduled 2022-07-31 HEPATITIS B VACCINES (1 [facility] 09:03:16 of 3 - 3-dose series) Hospit al [code = HEPATITIS B VACCINES (1 of 3 - 3-dose series)] Future Scheduled 2022-07-31 Pneumococcal Vaccine: [facility] 09:03:16 Pediatrics (0 to 5 Hospital Years) and At-Risk Patients (6 to 64 Years) (1 - PCV) [code = Pneumococcal Vaccine: Pediatrics (0 to 5 Years) and At-Risk Patients (6 to 64 Years) (1 - PCV)] Future Scheduled 2022-07-31 DIABETES: RETINAL EYE [facility] 09:03:16 EXAM [code = DIABETES: Hospi tamanna RETINAL EYE EXAM] Future Scheduled 2022-07-31 DIABETIC FOOT EXAM [facility] 09:03:16 [code = DIABETIC FOOT Hospit al EXAM] Future Scheduled 2022-07-31 URINE MICROALBUMIN [facility] 09:03:16 [code = URINE Hospital MICROALBUMIN] Future Scheduled 2022-07-31 Hepatitis C screening [facility] 09:[facility]16 (procedure) [code = Hospital [id number]] Future Scheduled 2022-07-31 Screening for malignant [facility]16 neoplasm of cervix Hospital (procedure) [code = 693807182] Future Scheduled 2022-07-31 BREAST CANCER SCREENING [facility] 09:03:16 [code = BREAST CANCER Hospit al SCREENING] Future Scheduled 2022-07-31 COLONOSCOPY SCREENING [facility]16 [code = COLONOSCOPY Hospital SCREENING] Future Scheduled 2022-07-31 COVID-19 VACCINE (3 - [facility] 09:03:16 Booster for Pfizer Hospital series) [code = COVID-19 VACCINE (3 - Booster for Pfizer series)] Future Scheduled 2022-07-31 INFLUENZA VACCINE [code [facility] 09:03:16 = INFLUENZA VACCINE] Hospita l Future Scheduled 2022-07-31 HEPATITIS B VACCINES (1 [facility] 09:03:16 of 3 - 3-dose series) Hospit al [code = HEPATITIS B VACCINES (1 of 3 - 3-dose series)] Future Scheduled 2022-07-31 Pneumococcal Vaccine: [facility] 09:03:16 Pediatrics (0 to 5 Hospital Years) and At-Risk Patients (6 to 64 Years) (1 - PCV) [code = Pneumococcal Vaccine: Pediatrics (0 to 5 Years) and At-Risk Patients (6 to 64 Years) (1 - PCV)] Future Scheduled 2022-07-31 DIABETES: RETINAL EYE [facility] 09:03:16 EXAM [code = DIABETES: Hospi tamanna RETINAL EYE EXAM] Future Scheduled 2022-07-31 DIABETIC FOOT EXAM [facility] 09:03:16 [code = DIABETIC FOOT Hospit al EXAM] Future Scheduled 2022-07-31 URINE MICROALBUMIN [facility] 09:03:16 [code = URINE Hospital MICROALBUMIN] Future Scheduled 2022-07-31 Hepatitis C screening [facility] 09:03:16 (procedure) [code = Hospital [id number]] Future Scheduled 2022-07-31 Screening for malignant [facility] 09:03:16 neoplasm of cervix Hospital (procedure) [code = 106344686] Future Scheduled 2022-07-31 BREAST CANCER SCREENING [facility] 09:03:16 [code = BREAST CANCER Hospit al SCREENING] Future Scheduled 2022-07-31 COLONOSCOPY SCREENING [facility] 09:03:16 [code = COLONOSCOPY Hospital SCREENING] Future Scheduled 2022-07-31 COVID-19 VACCINE (3 - [facility] 09:03:16 Booster for Pfizer Hospital series) [code = COVID-19 VACCINE (3 - Booster for Pfizer series)] Future Scheduled 2022-07-31 INFLUENZA VACCINE [code [facility] 09:03:16 = INFLUENZA VACCINE] Hospita l Future Scheduled 2022-07-31 HEPATITIS B VACCINES (1 [facility] 09:03:16 of 3 - 3-dose series) Hospit al [code = HEPATITIS B VACCINES (1 of 3 - 3-dose series)] Future Scheduled 2022-07-31 Pneumococcal Vaccine: [facility] 09:03:16 Pediatrics (0 to 5 Hospital Years) and At-Risk Patients (6 to 64 Years) (1 - PCV) [code = Pneumococcal Vaccine: Pediatrics (0 to 5 Years) and At-Risk Patients (6 to 64 Years) (1 - PCV)] Future Scheduled 2022-07-31 DIABETES: RETINAL EYE [facility] 09:03:16 EXAM [code = DIABETES: Hospi tamanna RETINAL EYE EXAM] Future Scheduled 2022-07-31 DIABETIC FOOT EXAM [facility] 09:03:16 [code = DIABETIC FOOT Hospit al EXAM] Future Scheduled 2022-07-31 URINE MICROALBUMIN [facility] 09:03:16 [code = URINE Hospital MICROALBUMIN] Future Scheduled 2022-07-31 Hepatitis C screening [facility] 09:03:16 (procedure) [code = Hospital [id number]] Future Scheduled 2022-07-31 Screening for malignant [facility] 09:03:16 neoplasm of cervix Hospital (procedure) [code = 573575577] Future Scheduled 2022-07-31 BREAST CANCER SCREENING [facility] 09:03:16 [code = BREAST CANCER Hospit al SCREENING] Future Scheduled 2022-07-31 COLONOSCOPY SCREENING [facility] 09:03:16 [code = COLONOSCOPY Hospital SCREENING] Future Scheduled 2022-07-31 COVID-19 VACCINE (3 - [facility] 09:03:16 Booster for Pfizer Hospital series) [code = COVID-19 VACCINE (3 - Booster for Pfizer series)] Future Scheduled 2022-07-31 INFLUENZA VACCINE [code [facility] 09:03:16 = INFLUENZA VACCINE] Hospita l Future Scheduled 2022-07-09 Screening for malignant [employer] Test 17:24:49 neoplasm of colon of Medicin e (procedure) [code = 795707443] Future Scheduled 2022-07-09 Screening for malignant [facility] Test 17:24:49 neoplasm of breast of Medici ne (procedure) [code = 161275363] Future Scheduled 2022-07-09 BMI FOLLOW UP PLAN [employer] Test 17:24:49 [code = BMI FOLLOW UP of Med icine PLAN] Future Scheduled 2022-07-09 Hepatitis C screening [employer] Test 17:24:49 (procedure) [code = of Medic ine 596448879] Future Scheduled 2022-07-09 Human immunodeficiency [employer] Test 17:24:49 virus screening of Medicine (procedure) [code = 535642762] Future Scheduled 2022-07-09 Screening for malignant [employer] Test 17:24:49 neoplasm of cervix of Medici ne (procedure) [code = 807134741] Future Scheduled 2022-07-09 FLU VACCINE > 6 MONTHS [employer] Test 17:24:49 [code = FLU VACCINE > 6 of M edicine MONTHS] Future Scheduled 2022-07-09 TETANUS SHOT (ADULT) [employer] Test 17:24:49 [code = TETANUS SHOT of Medi cine (ADULT)] Future Scheduled 2022-07-01 Screening for malignant [facility] Test 10:51:05 neoplasm of colon of Medicin e (procedure) [code = 641193546] Future Scheduled 2022-07-01 Screening for malignant [facility] Test 10:51:05 neoplasm of breast of Medici ne (procedure) [code = 556598271] Future Scheduled 2022-07-01 BMI FOLLOW UP PLAN [employer] Test 10:51:05 [code = BMI FOLLOW UP of Med icine PLAN] Future Scheduled 2022-07-01 Hepatitis C screening [employer] [facility] 10:51:05 (procedure) [code = of Medic ine 589673960] Future Scheduled 2022-07-01 [facility]05 virus screening of Medicine (procedure) [code = 729086731] Future Scheduled 2022-07-01 Screening for malignant [facility] Test 10:51:05 neoplasm of cervix of Medici ne (procedure) [code = 367503154] Future Scheduled 2022-07-01 FLU VACCINE > 6 MONTHS [facility] Test 10:51:05 [code = FLU VACCINE > 6 of M edicine MONTHS] Future Scheduled 2022-07-01 TETANUS SHOT (ADULT) [facility] Test 10:51:05 [code = TETANUS SHOT of Medi cine (ADULT)] Future Scheduled 2022-06-22 HEPATITIS B VACCINES (1 [facility] 07:57:21 of 3 - 3-dose series) Hospit al [code = HEPATITIS B VACCINES (1 of 3 - 3-dose series)] Future Scheduled 2022-06-22 Pneumococcal Vaccine: [facility] 07:57:21 Pediatrics (0 to 5 Hospital Years) and At-Risk Patients (6 to 64 Years) (1 - PCV) [code = Pneumococcal Vaccine: Pediatrics (0 to 5 Years) and At-Risk Patients (6 to 64 Years) (1 - PCV)] Future Scheduled 2022-06-22 DIABETES: RETINAL EYE [facility] 07:57:21 EXAM [code = DIABETES: Hospi tamanna RETINAL EYE EXAM] Future Scheduled 2022-06-22 DIABETIC FOOT EXAM [facility] 07:57:21 [code = DIABETIC FOOT Hospit al EXAM] Future Scheduled 2022-06-22 URINE MICROALBUMIN [facility] 07:57:21 [code = URINE Hospital MICROALBUMIN] Future Scheduled 2022-06-22 Hepatitis C screening [facility] 07:57:21 (procedure) [code = Hospital 696378766] Future Scheduled 2022-06-22 Screening for malignant [facility] 07:57:21 neoplasm of cervix Hospital (procedure) [code = 995356134] Future Scheduled 2022-06-22 BREAST CANCER SCREENING [facility] 07:57:21 [code = BREAST CANCER Hospit al SCREENING] Future Scheduled 2022-06-22 COLONOSCOPY SCREENING [facility] 07:57:21 [code = COLONOSCOPY Hospital SCREENING] Future Scheduled 2022-06-22 COVID-19 VACCINE (3 - [facility] 07:57:21 Booster for Pfizer Hospital series) [code = COVID-19 VACCINE (3 - Booster for Pfizer series)] Future Scheduled 2022-06-22 INFLUENZA VACCINE [code [facility] 07:57:21 = INFLUENZA VACCINE] Hospita l Future Scheduled 2022-06-05 INFLUENZA VACCINE (#1[facility] [code = INFLUENZA Medical Ce nter VACCINE (#1)] Future Scheduled 2022-06-05 INFLUENZA VACCINE (#1) [facility] 00:[facility] [code = INFLUENZA Medical Ce nter VACCINE (#1)] Future Scheduled 2022-06-05 INFLUENZA VACCINE (#1) [facility] 00:00:00 [code = INFLUENZA Medical Ce nter VACCINE (#1)] Future Scheduled 2022-06-05 INFLUENZA VACCINE (#1) [facility] 00:00:00 [code = INFLUENZA Medical Ce nter VACCINE (#1)] Future Scheduled 2022-05-06 Screening for malignant [employer] Test 12:43:36 neoplasm of colon of Medicin e (procedure) [code = 233416692] Future Scheduled 2022-05-06 Screening for malignant [employer] Test 12:43:36 neoplasm of breast of Medici ne (procedure) [code = 389288505] Future Scheduled 2022-05-06 BMI FOLLOW UP PLAN [employer] Test 12:43:36 [code = BMI FOLLOW UP of Med icine PLAN] Future Scheduled 2022-05-06 Hepatitis C screening [employer] Test 12:43:36 (procedure) [code = of Medic ine 864011655] Future Scheduled 2022-05-06 Human immunodeficiency B [facility] Test 12:43:36 virus screening of Medicine (procedure) [code = 131132748] Future Scheduled 2022-05-06 Screening for malignant [facility] Test 12:43:36 neoplasm of cervix of Medici ne (procedure) [code = 305038481] Future Scheduled 2022-05-06 FLU VACCINE > 6 MONTHS B [facility] Test 12:43:36 [code = FLU VACCINE > 6 of M edicine MONTHS] Future Scheduled 2022-05-06 TETANUS SHOT (ADULT) [facility] Test 12:43:36 [code = TETANUS SHOT of Medi cine (ADULT)] Future Scheduled 2022-05-06 EGD WITH ENDOFLIP [code 1 Occurrences [facility] Test 10:29:08 = NOCPT] starting of Medicine 05/06/2022 until 11/06/2022 Future Scheduled 2021-10-[address] [facility] Test 00:00:00 (12+) [code = Medical Center DEPRESSION SCREENING (12+)] Future Scheduled 2021-10-[address] [facility] Test 00:00:00 (12+) [code = Medical Center DEPRESSION SCREENING (12+)] Future Scheduled 2021-10-[address] [facility] Test 00:00:00 (12+) [code = Medical Center DEPRESSION SCREENING (12+)] Future Scheduled 2021-10-[address] [facility] Test 00:00:00 (12+) [code = Medical Center DEPRESSION SCREENING (12+)] Future Scheduled 2020-12-22 Lipid panel (procedure) [facility] Test 00:00:00 [code = 11761966] Medical Ce nter Future Scheduled 2020-12-22 Lipid panel (procedure) [facility] Test 00:00:00 [code = 52593799] Medical Ce nter Future Scheduled 2020-12-22 Lipid panel (procedure) [facility] Test 00:00:00 [code = 83695589] Medical Ce nter Future Scheduled 2020-12-22 Lipid panel (procedure) [facility] Test 00:00:00 [code = 99727881] Medical Ce nter Future Scheduled 1996-12-22 Screening for malignant [facility] Test 00:00:00 neoplasm of cervix Medical C enter (procedure) [code = 203570989] Future Scheduled 1996-12-22 Screening for malignant [facility] Test 00:00:00 neoplasm of cervix Medical C enter (procedure) [code = 654872032] Future Scheduled 1996-12-22 Screening for malignant [facility] Test 00:00:00 neoplasm of cervix Medical C enter (procedure) [code = 517286555] Future Scheduled 1996-12-22 Screening for malignant [facility] Test 00:00:00 neoplasm of cervix Medical C enter (procedure) [code = 630720178] Future Scheduled 1993-12-22 HEPATITIS C [facility]CRE[facility] [code = HEPATITIS C Medical Center SCREENING] Future Scheduled 1993-12-22 HEPATITIS C [facility] 00:00[facility]00 [code = HEPATITIS C Medical Center SCREENING] Future Scheduled 1993-12-22 [facility]PATITIS C [facility] 00:00[facility]00 [code = HEPATITIS C Medical Center SCREENING] Future Scheduled 1993-12-22 [facility]PATITIS C [facility]:00[facility] [code = HEPATITIS C Medical Center SCREENING] Future Scheduled 1975 CT Colonography (combo) [facility] 00:00:00 [code = CT Colonography [facility] (combo)] Future Scheduled 1975 Screening for malignant [facility] Test 00:00:00 neoplasm of colon Medical Ce nter (procedure) [code = 364265616] Future Scheduled 1975 Screening for malignant [facility] Test 00:00:00 neoplasm of colon Medical Ce nter (procedure) [code = 018630377] Future Scheduled 1975 Screening for malignant [facility] Test 00:00:00 neoplasm of colon Medical Ce nter (procedure) [code = 084460991] Future Scheduled 1975 Screening for malignant [facility] Test 00:00:00 neoplasm of colon Medical Ce nter (procedure) [code = 192005362] Future Scheduled 1975 Sigmoidoscopy [facility]] Medical Cente r Future Scheduled 1975 CT Colonography (combo) [facility] Test 00:00:00 [code = CT Colonography [facility] (combo)] Future Scheduled 1975 Screening for malignant [facility] Test 00:00:00 neoplasm of colon Medical Ce nter (procedure) [code = 240939996] Future Scheduled 1975 Screening for malignant [facility] Test 00:00:00 neoplasm of colon Medical Ce nter (procedure) [code = 760963982] Future Scheduled 1975 Screening for malignant [facility] Test 00:00:00 neoplasm of colon Medical Ce nter (procedure) [code = 050143077] Future Scheduled 1975 Screening for malignant [facility] Test 00:00:00 neoplasm of colon Medical Ce nter (procedure) [code = 732739380] Future Scheduled 1975 Sigmoidoscopy [facility]oscopy] Medical Cente r Future Scheduled 1975 CT Colonography (combo) [facility] 00:00:00 [code = CT [facility] ([facility])] Future Scheduled 1975 Screening for malignant [facility] Test 00:00:00 neoplasm of colon Medical Ce nter (procedure) [code = 101017803] Future Scheduled 1975 Screening for malignant [facility] Test 00:00:00 neoplasm of colon Medical Ce nter (procedure) [code = 213429531] Future Scheduled 1975 Screening for malignant [facility] Test 00:00:00 neoplasm of colon Medical Ce nter (procedure) [code = 041333914] Future Scheduled 1975 Screening for malignant [facility] Test 00:00:00 neoplasm of colon Medical Ce nter (procedure) [code = 589339006] Future Scheduled 1975 Sigmoidoscopy [facility]code [facility]oscopy] Medical Cente r Future Scheduled 1975 CT Colonography (combo) [facility] 00:00:00 [code = CT Colonography [facility] (combo)] Future Scheduled 1975 Screening for malignant [facility] Test 00:00:00 neoplasm of colon Medical Ce nter (procedure) [code = 927271630] Future Scheduled 1975 Screening for malignant [facility] Test 00:00:00 neoplasm of colon Medical Ce nter (procedure) [code = 894809903] Future Scheduled 1975 Screening for malignant [facility] Test 00:00:00 neoplasm of colon Medical Ce nter (procedure) [code = 231772000] Future Scheduled 1975 Screening for malignant [facility] Test 00:00:00 neoplasm of colon Medical Ce nter (procedure) [code = 316785212] Future Scheduled 1975 Sigmoidoscopy [facility]oscopy] Medical Marke r Goal Plan of Care Note [code = 23895-7] Goal Plan of Care Note [code = 90890-6] Goal Plan of Care Note [code = 83796-6] Goal Plan of Care Note [code = 49321-6] Goal Plan of Care Note [code = 27604-6] Goal Plan of Care Note [code = 70059-9] Goal Plan of Care Note [code = 05900-4] Goal Plan of Care Note [code = 26737-5] Goal Plan of Care Note [code = 54276-6] Goal Plan of Care Note [code = 75278-2] Goal Plan of Care Note [code = 69327-5] Goal Plan of Care Note [code = 45781-6] Goal Plan of Care Note [code = 99288-0] Goal Plan of Care Note [code = 03530-0] Goal Plan of Care Note [code = 08110-3] Goal Plan of Care Note [code = 99012-9] Goal Plan of Care Note [code = 76502-7] Goal Plan of Care Note [code = 72862-6] Goal Plan of Care Note [code = 54671-7] Goal Plan of Care Note [code = 60487-5] Goal Plan of Care Note [code = 71124-4] Goal Plan of Care Note [code = 70391-1] Goal Plan of Care Note [code = 15598-6] Goal Plan of Care Note [code = 42411-6] Goal Plan of Care Note [code = 16498-7] Goal Plan of Care Note [code = 33718-9] Goal Plan of Care Note [code = 43615-9] Goal Plan of Care Note [code = 62125-5] Goal Plan of Care Note [code = 34003-3] Goal Plan of Care Note [code = 51127-4] Goal Plan of Care Note [code = 10368-4] Goal Plan of Care Note [code = 52165-7] Goal Plan of Care Note [code = 66573-9] Goal Plan of Care Note [code = 78048-4] Goal Plan of Care Note [code = 02746-4] Goal Plan of Care Note [code = 31978-0] Goal Plan of Care Note [code = 59362-2] Goal Plan of Care Note [code = 70127-2] Goal Plan of Care Note [code = 93488-8] Goal Plan of Care Note [code = 52224-6] Goal Plan of Care Note [code = 76367-8] Goal Plan of Care Note [code = 84540-5] Goal Plan of Care Note [code = 99144-2] Goal Plan of Care Note [code = 41073-2] Goal Plan of Care Note [code = 31912-8] Goal Plan of Care Note [code = 28768-0] Goal Plan of Care Note [code = 45138-4] Goal Plan of Care Note [code = 93436-2] Goal Plan of Care Note [code = 12141-7] Goal Plan of Care Note [code = 03869-0] Goal Plan of Care Note [code = 73688-3] Goal Plan of Care Note [code = 09559-2] Goal Plan of Care Note [code = 01405-8] Goal Plan of Care Note [code = 25887-5] Goal Plan of Care Note [code = 33654-2] Goal Plan of Care Note [code = 53015-4] Goal Plan of Care Note [code = 53575-0] Goal Plan of Care Note [code = 93025-3] Goal Plan of Care Note [code = 52916-4] Goal Plan of Care Note [code = 39558-1] Goal Plan of Care Note [code = 36697-3] Goal Plan of Care Note [code = 07851-0] Goal Plan of Care Note [code = 00003-9] Encounters Start End Encounter Admission Attending Care Care Encounter Source Date/Time Date/Time Type Type Clinicians Facility Department ID 2021-08-03 Emergency [facility] [id number] Univers 14:50:59 ity of [facility] 2021-08-03 Emergency [facility] [id number] Univers 11:32:31 ity of [facility] 2021-08-03 Emergency [facility] [id number] Univers 03:51:55 ity of [facility] 2023-01-21 2023-01-21 Urgent Cheryl Redding [facility] 1.2.840.114 [id number] Univers 16:00:00 16:20:00 Care Unknown, Attending [facility] 350.1.13.10 ity of [place] 4.2.7.2.686 Hari as KLAUS?BLEA [phone] [address] MEDICAL OFFICE BUILDING 2023-01-21 2023-01-21 Outpatient R CHANDRADEBRAuHgo, [facility] [id number] Univers 16:00:00 16:00:00 CHERYL [facility] 2023-01-01 2023-01-01 Outpatient R BRISA III, [facility] [id number] Univers 19:40:00 20:13:19 SERJIO [facility] 2023-01-01 2023-01-01 Urgent Serjio Nunez [facility] 1.2.840.114 [id number] Univers 19:40:00 20:13:19 Care Unknown, [facility] 350.1.13.10 [facility]y [facility] 4.2.7.2.686 Hari as KLAUS?BLEA [phone] [address] MEDICAL OFFICE [facility] 2023-01-01 2023-01-01 Letter Provider, [facility] [id number] Univers 00:00:00 00:00:00 (Out) Ang [facility] 350.1.13.10 it y of Urgent Care [place] 4.2.7.2.686 [place] KLAUS?BLEA [phone] [address] MEDICAL OFFICE BUILDING 2022-12-29 2022-12-29 Outpatient R NORBERT [facility] [id number] Univers 08:30:00 09:33:10 SELENA shon [facility] 2022-12-29 2022-12-29 Office Norbert [facility] [id number] Univers 08:30:00 09:33:10 Visit Selena SOMMER 350.1.13.10 i ty [place] [phone] Wa dical NAL 134 [facility] 2022-12-29 2022-12-29 Orders Doctor REEMA 1.2.840.114 [id number] Univers 00:00:00 00:00:00 Only Unassigned, STEPHANIE 350.1.13.10 ity of [facility] 4.2.7.2.686 Hari as [phone] [facility] 009 [place] 2022-12-26 2022-12-26 Office DARRION ADAMS 1.2.840.114 [id number] [facility] 09:18:14 14:25:09 Visit JIL AMBULATOR 350.1.13.21 College Y 0.2.7.2.686 of [id number] [facility] 325 e 2022-11-17 2022-11-17 Orders Doctor REEMA 1.2.840.114 [id number] Univers 00:00:00 00:00:00 Only Unassigned, STEPHANIE 350.1.13.10 ity of [facility] [facility] 4.2.7.2.686 Hari as [phone] [facility] 009 [place] 2022-11-06 2022-11-06 Telephone Norbert [facility] 1.2.840.114 [id number] Univers 00:00:00 00:00:00 Selena SOMMER 350.1.13.10 i [place] [phone] Wa dictn NAL 134 [facility] 2022-11-05 2022-11-05 Emergency X [facility] ERT [id number] Univers 18:30:00 21:06:00 SIENNA ity of [facility] 2022-11-05 2022-11-05 Emergency Walter [facility] [id number] Univers 18:30:00 21:06:00 Sienna SOMMER 350.1.13.10 i ty [place] [phone] [facility] 084 [place] 2022-11-04 2022-11-04 Urgent Kelly Martines [facility] 1.2.840.114 [id number] Univers 19:20:00 19:40:00 Care Unknown, Attending HEALTH 350.1.13.10 ity of [place] 4.2.7.2.686 Hari as KLAUS?BLEA [phone] [address] MEDICAL OFFICE [facility] 2022-11-04 2022-11-04 Outpatient Theresa MARTINES [facility] [id number] [facility] 19:20:00 19:20:00 KELLY shon [facility] 2022-10-28 2022-10-28 Office [place] 1.2.840.114 [id number] [facility] 10:00:00 10:30:00 Visit Jil AMBULATOR 350.1.13.21 College Y 0.2.7.2.686 of [id number] Medi gege 325 e 2022-10-10 2022-10-10 Office ADAMS, [facility] 1.2.840.114 [id number] [facility] 11:04:48 11:04:48 Visit JIL AMBULATOR 350.1.13.21 College Y 0.2.7.2.686 of [id number] Medi gege 325 e 2022-10-10 2022-10-10 Office Matilde, [facility] 1.2.840.114 [id number] [facility] 10:30:00 11:00:00 Visit Casie AMBULATOR 350.1.13.21 College Y 0.2.7.2.686 of [id number] Medi gege 325 e 2022-09-23 2022-09-23 Refill Serjio Nunez [facility] 1.2.840.114 [id number] Univers 00:00:00 00:00:00 C HEALTH 350.1.13.10 it y of [place] 4.2.7.2.686 Hari as KLAUS?BLEA [phone] [address] MEDICAL OFFICE BUILDING 2022-09-05 2022-09-05 Serjio Snider [facility] 1.2.840.114 [id number] Univers 00:00:00 00:00:00 C HEALTH 350.1.13.10 it y of [place] 4.2.7.2.686 Hari as KLAUS?BLEA [id number] [address] MEDICAL OFFICE BUILDING 2022-09-04 2022-09-04 Outpatient Theresa NUNEZ III, [facility] [id number] Univers 20:00:00 20:44:34 SERJIO howeshon [facility] 2022-09-04 2022-09-04 Serjio Ny [facility] 1.2.840.114 [id number] Univers 20:00:00 20:44:34 Care Unknown, Attending [facility]13.10 [facility] 4.2.7.2.686 Hari as KLAUS?BLEA [phone] [address] OFFICE [facility] 2022-08-07 2022-08-07 Office DARRION [place] 1.2.840.114 [id number] [facility] 09:00:00 10:20:22 Visit Casie AMBULATOR 350.1.13.21 College Y 0.2.7.2.686 of [id number] Medi gege 325 e 2022-08-05 2022-08-05 Office DARRION Adams 1.2.840.114 [id number] [facility] 09:30:00 12:03:29 Visit Jil AMBULATOR 350.1.13.21 College Y 0.2.7.2.686 of [id number] Medi gege 325 e 2022-07-03 2022-07-03 Office KRISTEN COLÓN 1.2.840.114 [id number] [facility] 14:41:22 16:48:46 Visit ZAINAB LARA AMBULATOR 350.1.13.21 College Y 0.2.7.2.686 of [id number] Medi gege 805 e 2022-07-01 2022-07-01 Office DARRION ADAMS 1.2.840.114 [id number] [facility] 10:39:22 11:32:53 Visit JIL AMBULATOR 350.1.13.21 College Y 0.2.7.2.686 of [id number] Medi gege 325 e 2022-06-25 2022-06-25 Outpatient [id number] 1c [id number] 00:00:00 00:00:00 Visit [id number] 2022-05-28 2022-05-29 Outpatient DARRION ADAMS BC [id number] [facility] 15:39:23 15:41:06 [facility] Medicin e 2022-05-28 2022-05-28 Outpatient BCM BC [id number] [facility] 09:58:00 23:59:00 [facility] 2022-05-28 2022-05-28 Outpatient OLIVIA ADAMS, [facility] Surgery [id number] [facility] 09:58:00 14:46:00 [facility] 2022-05-28 2022-05-28 Hospital OLIVIA Adams, [facility] [id number] 09:58:00 14:46:00 Encounter [facility] 2022-05-28 2022-05-28 Anesthesia [facility], [facility] [id number] 12:13:00 13:06:00 Event [facility] 2022-05-28 2022-05-28 Surgery Adams, [facility] [id number] 12:00:00 13:00:00 [facility] 2022-05-28 2022-05-28 Travel [facility] [id number] [facility] 00:[facility]:00 00:00:00 [facility] 2022-05-27 2022-05-27 Laboratory Only, Adc Test [facility] 1.2.840. 114 [id number] [facility] 09:30:00 09:45:00 Only Andrew Chinchilla 350.1.13 .10 [facility] 4.2.7.2.686 [facility] [id number] [address] 2022-05-27 2022-05-27 Outpatient Theresa CHINCHILLA [facility] [id number] Univers 09:30:00 09:30:00 ANDREW neff [facility] 2022-05-13 2022-05-13 Triston Toussaint [facility] 1.2.608.358 [id number] Univers 00:00:00 00:00:00 Selena ROS 350.1.13.10 i ty of [place] [id number] [address] 2022-05-12 2022-05-12 Outpatient EL [facility] [id number] [facility] 14:09:12 23:59:00 2022-05-12 2022-05-12 [facility] [id number] 13:25:00 23:59:00 Encounter [facility] 2022-05-12 2022-05-12 Travel [facility] [id number] [facility] 00:00:00 00:00:00 [facility] 2022-05-06 2022-05-06 Office [facility] 1.2.840.[id number] [place] [address] 09:25:09 14:00:10 Visit JIL AMBULATOR 350.1.13.21 College Y 0.2.7.2.686 of [id number] [facility] 325 e 2022-04-28 2022-04-28 Outpatient Theresa TOUSSAINT [facility] [id number] Univers 09:30:00 11:22:54 SELENA shon [facility] 2022-04-28 2022-04-28 Office [facility] 1.2.684.536 [id number] Univers 09:30:00 11:22:54 Visit Selena SOMMER 350.1.13.10 i ty of [facility] [place] [id number] [address] 2022-04-15 2022-04-15 Outpatient Theresa TOUSSAINT [facility] [id number] Univers 09:00:00 09:00:00 SELENA neff [facility] 2022-04-15 2022-04-15 Outpatient Theresa TOUSSAINT [facility] [id number] [facility] 09:00:00 09:00:00 SELENA [facility] 2022-04-14 2022-04-14 Refill Norbert [facility] 1.2.373.780 [id number] Univers 00:00:00 00:00:00 Selena SOMMER 350.1.13.10 i ty of [facility] [place] [id number] Wa dical NAL 134 [facility] 2022-03-19 2022-03-19 Office [facility] 1.2.840.114 [id number] Univers 14:15:00 14:30:00 Visit Valdemar CORREATANY 350.1.13.[address] [facility] [place].2.[place] [id number] [address] 2022-03-19 2022-03-19 [facility] [id number] Univers 14:15:00 14:15:00 VALDEMAR [facility] 2022-03-19 2022-03-19 Outpatient [facility] [id number] Univers 14:15:00 14:15:00 VALDEMAR [facility] 2022-03-19 2022-03-19 Out[facility] [id number] Univers 14:15:00 14:15:00 VALDEMAR [facility] 2022-03-19 2022-03-19 Out[facility] [id number] Univers 14:15:00 14:15:00 VALDEMAR [facility] 2022-03-19 2022-03-19 Outpatient [facility] [id number] Univers 09:15:00 09:54:39 SELENA [facility] 2022-03-19 2022-03-19 Office [facility] 1.2.258.708 [id number] Univers 09:15:00 09:54:39 Visit Selena SOMMER 350.1.13.10 i ty of [facility] 4.[place] [id number] Wa dic[address] 2022-03-19 2022-03-19 Orders Doctor BENAVIDEZ 1.2.840.114 [id number] Univers 00:00:00 00:00:00 Only Unassigned, STEPHANIE 350.1.13.10 ity of [place] [facility] 4.2.7.2.686 Hari as [id number] [address] 2022-03-19 2022-03-19 Refill [facility] 1.2.614.077 [id number] Univers 00:00:00 00:00:00 Selena SOMMER 350.1.13.10 i ty of [place] 487.8380204 Wa dic[address] 2022-03-13 2022-03-13 Telephone [facility] 1.2.840.114 [id number] Univers 00:00:00 00:00:00 Selena SOMMER 350.1.13.10 i ty of [place] 802.3277292 Wa dic[address] 2022-03-05 2022-03-05 Telephone [facility] 1.2.840.114 [id number] Univers 00:00:00 00:00:00 Selena SOMMER 350.1.13.10 i ty of [place] 267.6957221 Wa dic[address] 2022-02-19 2022-02-19 Telephone [facility] 1.2.840.114 [id number] Univers 00:00:00 00:00:00 Selena SOMMER 350.1.13.10 i ty of [place] 507.9242400 Wa dic[address] 2022-02-18 2022-02-18 Office [facility] 1.2.823.935 [id number] Univers 16:00:00 16:30:00 Visit Selena SOMMER 350.1.13.10 i ty of [place] [id number] [address] 2022-02-18 2022-02-18 Outpatient R NORBERT [facility] [id number] Univers 16:00:00 16:00:00 [facility] 2022-02-18 2022-02-18 Outpatient Theresa TOUSSAINT, [facility] [id number] Univers 16:00:00 16:00:00 [facility] 2022-02-18 2022-02-18 Telephone Ana [facility] 1.2.840.114 [id number] Univers 00:00:00 00:00:00 Hiram WINKLERTON 350.1.13.10 i ty of [facility] 4.2.7.2.[place] [id number] [address] 2022-02-17 2022-02-17 Emergency X [facility] ERT [id number] Univers 12:28:00 17:18:00 UCHE [facility] 2022-02-17 2022-02-17 Emergency [facility] 1.2.840.114 [id number] Univers 12:28:00 17:18:00 Uche SOMMER 350.1.13.10 i ty of [place]2.7.2.[place] [id number] [address] 2022-02-17 2022-02-17 Telephone Peterson Alanis [facility] 1.2.840.114 [id number] Univers 00:00:00 00:00:00 Hiram WINKLERTON 350.1.13.10 i ty of [facility] 4.2.7.2.[place] [id number] Wa dical NAL [address] [place] [address] 2022-02-12 2022-02-12 Telephone Alanis Peterson [facility] 1.2.840.114 [id number] Univers 00:00:00 00:00:00 Hiram [place] 350.1.13.10 i ty of [place] [id number] Wa dic[address] 2022-02-11 2022-02-11 Office Ana Laura Petersonen [facility] 1.2.840.114 [id number] Univers 08:00:00 09:29:23 Visit Buffy Redd 350.1.13.10 ity [facility] [place].2.[place] [id number] Wa dical NAL 134 [facility] 2022-02-11 2022-02-11 Outpatient R ALANIS PETERSON [facility] [id number] Univers 08:00:00 09:29:23 ity of [facility] 2022-02-11 2022-02-11 Outpatient R ALANIS PETERSON [facility] [id number] Univers 08:00:00 08:00:00 ity [facility] 2022-02-10 2022-02-10 Outpatient R NORBERT [facility] [id number] Univers 15:30:00 15:30:00 [facility] 2022-01-30 2022-01-30 Outpatient Theresa TOUSSAINT [facility] [id number] Univers 09:30:00 09:30:00 [facility] 2022-01-28 2022-01-28 Outpatient R ALANIS PETERSON [facility] [id number] Univers 15:00:00 15:34:15 ity [facility] 2022-01-28 2022-01-28 Office Joaquin [facility] 1.2.820.711 [id number] Univers 15:00:00 15:34:15 Visit Hiram SOMMER 350.1.13.10 i ty [facility] [place].2.[place] [id number] Wa dical NAL [address] [place] [address] 2022-01-28 2022-01-28 Outpatient R ALANIS PETERSON [facility] [id number] Univers 15:00:00 15:00:00 ity [facility] 2022-01-28 2022-01-28 Orders Doctor BENAVIDEZ 1.2.840.114 [id number] Univers 00:00:00 00:00:00 Only Unassigned, STEPHANIE 350.1.13.10 [facility] 4.2.7.2.686 Hari as [id number] [address] 2022-01-27 2022-01-27 Outpatient Theresa TOUSSAINT [facility] [id number] Univers 09:45:00 10:22:29 SELENA neff [facility] 2022-01-27 2022-01-27 Office [facility] 1.2.547.929 [id number] Univers 09:45:00 10:22:29 Visit Selena SOMMER 350.1.13.10 i ty of [facility] 4.2.7.2.[place] [id number] Wa dic[address] 2022-01-14 2022-01-14 Outpatient R [facility] [id number] Univers 14:00:00 14:41:39 SELENA shon [facility] 2022-01-14 2022-01-14 Office [facility] 1.2.001.359 [id number] Univers 14:00:00 14:41:39 Visit Selena WINKLERSHERRI 350.1.13.10 i ty of [place] [id number] [address] 2022-01-14 2022-01-14 Outpatient R NORBERT [facility] [id number] Univers 14:00:00 14:41:39 [facility] 2022-01-14 2022-01-14 Telephone Lela [facility] 1.2.757.308 [id number] Univers 00:00:00 00:00:00 Percy SPECIALTY 350.1.13.10 ity of [place].2.[place] [id number] [facility] [address] 2022-01-14 2022-01-14 Orders Doctor REEMA 1.2.840.114 [id number] Univers 00:00:00 00:00:00 Only Unassigned, STEPHANIE 350.1.13.10 ity of [place] [facility] 4.2.7.2.686 Hari as [id number] [facility] [address] 2022-01-06 2022-01-06 Telephone Alanis Peterson [facility] 1.2.840.114 [id number] Univers 00:00:00 00:00:00 Hiram SOMMER 350.1.13.10 i ty of [place] [id number] Wa dical NAL 134 [facility] 2022-01-02 2022-01-02 Office Lela Percy [facility] 1.2.840.114 [id number] Univers 13:00:00 14:00:00 Visit Brandan Thrasher 350.1.13.10 ity [facility] [place].2.[place] [id number] [facility] [address] 2022-01-02 2022-01-02 Outpatient R BRANDAN THRASHER [facility] [id number] Univers 13:00:00 13:00:00 ity of [facility] 2022-01-02 2022-01-02 Orders Doctor REEMA 1.2.840.114 [id number] Univers 00:00:00 00:00:00 Only Unassigned, STEPHANIE 350.1.13.10 ity of [place] [facility] 4.2.7.2.686 Hari as [id number] [address] 2022-01-01 2022-01-01 Telephone Alanis Peterson [facility] 1.2.840.114 [id number] Univers 00:00:00 00:00:00 Cam ROS 350.1.13.10 i ty of [facility] [place].2.[place] [id number] [address] 2021-12-31 2021-12-31 Outpatient R ALANIS PETERSON [facility] [id number] Univers 13:15:00 13:58:14 ity of [facility] 2021-12-31 2021-12-31 Office Alanis Peterson [facility] 1.2.656.968 [id number] Univers 13:15:00 13:58:14 Visit Hiram SOMMER 350.1.13.10 i ty of [place] [id number] [address] 2021-12-31 2021-12-31 Outpatient R ALANIS PETERSON [facility] [id number] Univers 13:15:00 13:58:14 ity of [facility] 2021-12-31 2021-12-31 Outpatient R PETERSON, [facility] [id number] Univers 13:15:00 13:15:00 ity [facility] 2021-12-30 2021-12-30 Outpatient R NORBERT [facility] [id number] Univers 15:30:00 16:17:58 SELENA shon [facility] 2021-12-30 2021-12-30 Office [facility] 1.2.425.149 [id number] Univers 15:30:00 16:17:58 Visit Selena SOMMER 350.1.13.10 i ty of [facility] 4.2.7.2.[place] [id number] [facility] 134 [facility] 2021-12-30 2021-12-30 Outpatient R NORBERT [facility] [id number] Univers 15:30:00 16:17:58 SELENA [facility] 2021-12-27 2021-12-27 Refill Norbert [facility] 1.2.707.854 [id number] Univers 00:00:00 00:00:00 Selena SOMMER 350.1.13.10 i ty of [place] [id number] [facility] 134 [facility] 2021-12-26 2021-12-26 Spiritual Advisor 2, Adc Lab [facility] 1.2.840.114 [id number] Univers 16:00:00 16:15:00 Visit Selena Toussaint 350.1.13.10 ity of [facility] 4.2.7.2.[place] [id number] [facility] 353 [facility] 2021-12-26 2021-12-26 Outpatient R NORBERT [facility] [id number] Univers 16:00:00 16:00:00 SELENA [facility] 2021-12-26 2021-12-26 Office [facility] 1.2.398.622 [id number] Univers 14:30:00 15:55:51 Visit Selena SOMMER 350.1.13.10 i ty of [place] 4.[place].2.[place] [id number] Wa dical NAL 134 [facility] 2021-12-26 2021-12-26 Outpatient R NORBERT [facility] [id number] Univers 14:30:00 15:55:51 SELENA shon [facility] 2021-12-26 2021-12-26 Telephone [facility] 1.2.840.114 [id number] Univers 00:00:00 00:00:00 Selena SOMMER 350.1.13.10 i ty of [place] 4.2.7.2.[address] [address] [facility] [address] [facility] [id number] Wa dical NAL [address] [place] [address] 2021-12-25 2021-12-25 Outpatient PRIV PRIV [id number] 6-2 [facility] 09:31:00 09:31:00 [id number] Medica l 2021-12-25 2021-12-25 Outpatient PRIV PRIV [id number] 6-2 [facility] 09:31:00 09:31:00 [id number] Medica l 2021-12-21 2021-12-21 Emergency [facility] [id number] Univers 16:42:00 21:26:00 [facility] 2021-12-21 2021-12-21 Emergency X [facility] [id number] Univers 16:42:00 21:26:00 [facility] 2021-12-21 2021-12-21 Emergency [facility] 1.2.781.281 [id number] Univers 16:42:00 21:26:00 Sienna SOMMER 350.1.13.10 i ty of [place].2.686 [place] [id number] [address] 2021-11-01 2021-11-01 Office Jennifer [facility] 1.2.840.114 [id number] Univers 11:20:00 11:39:54 Visit Zachary [facility] 350.1.13.10 ity leo [facility] 4.2.7.2.686 Hari as KLAUS?BLEA [id number] Wa dic[address] OFFICE [facility] 2021-11-01 2021-11-01 Outpatient ZACHARY LANCE [facility] [id number] Univers 11:20:00 11:39:54 ZACHARY RODRIGUEZ shon [facility] 2021-11-01 2021-11-01 Outpatient R ZACHARY RODRIGUEZ [facility] [id number] Univers 11:20:00 11:20:00 ZACHARY RODRIGUEZshon [facility] 2021-10-15 2021-10-15 Outpatient R ZACHARY RODRIGUEZ [facility] [id number] Univers 10:31:26 23:59:00 ZACHARY RODRIGUEZ shon [facility] 2021-10-15 2021-10-15 [facility] 1.2.059.770 [id number] Univers 10:31:26 23:59:00 Encounter Zachary SOMMER 350.1.13.10 ity [facility] 4.2.7.2.[place] [id number] [facility] [address] 2021-10-11 2021-10-11 Outpatient R AMOR [facility] [id number] Univers 16:40:00 16:40:00 ANDREW neff [facility] 2021-10-11 2021-10-11 Imm/Inj Nurse, Adc Pob Immunization [facility] 1.2.840.114 [id number] Univers 16:40:00 16:40:00 Visit Andrew Chinchilla 350.1.13 .10 [facility] [place] 174.9872484 Wa dical NAL [address] BUILDING 2021-09-24 2021-09-24 Ancillary SurfaceLyndsay [facility] 1.2.8 40.114 [id number] Univers 13:45:00 14:30:00 Visit Valdemar John 350.1.13.10 ity [facility] [place].2.[place] [id number] [facility] [address] 2021-09-24 2021-09-24 Outpatient R ALVARO [facility] [id number] Univers 13:45:00 13:45:00 VALDEMAR neff [facility] 2021-09-24 2021-09-24 Outpatient R JENNIFER, ZACHARY [facility] [id number] Univers 08:00:00 09:02:04 ZACHARY RODRIGUEZ itshon [facility] 2021-09-24 2021-09-24 Office [facility] 1.2.840.114 [id number] Univers 08:00:00 09:02:04 Visit Zachary [facility] 350.1.13.10 ity of [place] 4.2.7.2.686 Hari as KLAUS?BLEA [id number] Wa dical [address] MEDICAL OFFICE BUILDING 2021-09-24 2021-09-24 Orders Doctor REEMA 1.2.840.114 [id number] Univers 00:00:00 00:00:00 Only Unassigned, STEPHANIE 350.1.13.10 ity of [place] [facility] 4.2.7.2.686 Hari as [id number] [facility] [address] 2021-09-18 2021-09-18 Outpatient [facility] [id number] Univers 16:00:00 16:42:41 VALDEMAR [facility] 2021-09-18 2021-09-18 Office [facility] 1.2.840.114 [id number] Univers 16:00:00 16:42:41 Visit Valdemar JAY 350.1.13.[address] [facility] [place].7.2.[place] [id number] [facility] [address] 2021-09-06 2021-09-07 Outpatient X SERGE [facility] [id number] Univers 17:20:00 15:20:00 ELE neff [facility] 2021-09-06 2021-09-07 Emergency Jenaro Hung [facility] 1.2.840. 114 [id number] Univers 17:20:00 15:20:00 Ele Valentine 350.1.13.10 ity of [place] 4.2.7.2.686 [facility] [id number] [facility] [address] 2021-08-16 2021-08-18 Emergency Clarence Benitez 1.2.840.1 104 [id number] Methodi 15:55:00 20:05:00 Neptali Knight 27595.1.1 245 Mansi Romo 3.430.2.7 Hospita .3.080349 l .8 2021-07-26 2021-07-26 Outpatient DAT REEVESSE MHSE 7500 MH 09:26:00 14:52:00 [facility] 2021-07-10 2021-07-10 Telephone Sabrina REEMA 1.2.426.024 [id number] Univers 00:00:00 00:00:00 Elzbieta BROWN 350.1.13.10 it y of [facility] 4.2.7.2.686 Hari as [id number] [address] 2021-07-09 2021-07-09 Outpatient R [facility] [id number] Univers 16:30:00 16:30:00 ity [facility] 2021-07-09 2021-07-09 Laboratory Only, Ang Db Test [facility] 1.2.8 40.114 [id number] Univers 16:13:58 16:28:58 Only [facility] 350.1.13.10 ity of [place] 4.2.7.2.686 Hari as Klaus?Blea 282.5067775 [address] Medical Office Building 2021-06-08 2021-06-08 Kelly Champagne [facility] 1.2.840.114 [id number] Univers 19:29:50 19:49:50 Care [facility] 350.1.13.10 ity of [place] 4.2.7.2.686 Hari as Klaus?Blea [id number] [address] Medical Office Building 2021-06-08 2021-06-08 Outpatient R ANGELA [facility] [id number] Univers 19:20:00 19:20:00 PIERRE neff o f [facility] 2021-04-12 2021-04-12 [facility]patient [facility] [id number] Univers 13:30:00 13:30:00 ALLAN [facility] 2021-04-04 2021-04-04 Triston Senior [facility] 1.2.840.114 [id number] Univers 00:00:00 00:00:00 [facility] 350.1.13.10 it y of [place] 4.2.7.2.686 Hari as Professio [id number] [address] One 2021-03-07 2021-03-07 Urgent Eric Senior [facility] 1.2.840.1 14 [id number] Univers 19:28:05 20:07:20 Mana Song [facility] 350.1.13.10 ity of [place] 4.2.7.2.686 Hari as Professio [id number] [address] One 2021-03-07 2021-03-07 Outpatient [facility] [id number] Univers 19:40:00 19:40:00 MANA ity o [facility] 2021-03-07 2021-03-07 Outpatient [facility] [id number] Univers 11:00:00 11:00:00 SADLER ity o [facility] 2021-03-07 2021-03-07 Orders Doctor REEMA 1.2.840.114 [id number] Univers 00:00:00 00:00:00 Only Unassigned, STEPHANIE 350.1.13.10 ity of [place] [facility] 4.2.7.2.686 Hari as [id number] [address] 2021-03-07 2021-03-07 Refill [facility]gomanny[facility] .2.840.114 [id number] Univers 00:00:00 00:00:00 [facility] 350.1.13.10 it y of [place] 4.2.7.2.686 Hari as Professio [id number] [address] One 2021-02-07 2021-02-07 Outpatient [facility] [id number] Univers 13:20:00 13:20:00 SASHA ity [facility] 2021-01-14 2021-01-14 Outpatient [facility] [id number] Univers 13:00:00 13:00:00 ity of [facility] 2020-12-20 2020-12-20 Patient Amor [facility] 1.2.840.114 [id number] Univers 00:00:00 00:00:00 Outreach Andrew PRIMARY 350.1.13.10 i ty of [place] [facility] 4.2.7.2.686 [place] [id number] Wa dical [address] 2020-10-12 2020-10-12 Outpatient R PEARL [facility] [id number] Univers 11:00:00 11:00:00 [facility] 2020-10-08 2020-10-08 Emergency Abhilash Jenaro [facility] 1.2.840.114 [id number] Univers 14:47:00 18:45:00 Emi Sommer 350.1.13.10 [place] [phone] [facility] [address] 2020-09-29 2020-09-29 Laboratory Nurse, Ciro Vargas 1.2.8 40.114 [id number] Univers 17:57:28 18:12:28 Only Unknown, Attending Pediatric 350.1.13. 10 ity [place] [id number] [facility] Primary [facility] 2020-09-29 2020-09-29 Outpatient R DESTINI [facility] [id number] Univers 17:45:00 17:45:00 ATTENDING [facility] 2020-09-26 2020-09-26 Outpatient R PEARL [facility] [id number] Univers 11:15:00 11:15:00 [facility] 2020-09-21 2020-09-21 Outpatient R ALVARO [facility] [id number] Univers 10:00:00 10:00:00 VALDEMAR [facility] 2020-09-21 2020-09-21 [facility] 1.2.840.114 [id number] Univers 09:29:39 09:44:39 Visit Valdemar JAY 350.1.13.10 i ty of [place] [phone] [facility] [address] 2020-09-19 2020-09-19 Emergency Idaribrittany, [facility] [id number] Univers 06:08:00 09:24:00 Ady Sommer 350.1.13.10 ity of [place] 4.2.7.2.686 [facility] [phone] [facility] [address] 2020-09-04 2020-09-04 Orders Doctor REEMA 1.2.840.114 [id number] Univers 00:00:00 00:00:00 Only Unassigned, STEPHANIE 350.1.13.10 ity of [place] [facility] 4.2.7.2.686 Hari as [id number] [facility] [address] 2020-08-11 2020-08-11 Emergency Watson, [facility] [id number] Univers 05:17:00 07:08:00 Sienna [place] 350.1.13.10 i ty of [place] 4.2.7.2.686 [facility] [id number] [address] 2020-07-20 2020-07-20 Urgent Provider, [facility] 1.2.840.114 [id number] Univers 18:42:01 20:04:22 Care Unknown, Attending Health 350.1.13.10 ity of [place] 4.2.7.2.686 Hari as Professio [phone] [place] [address] 2020-07-20 2020-07-20 Outpatient R [facility] [id number] Univers 19:40:00 19:40:00 ity of [facility] 2020-04-16 2020-04-16 Outpatient MOJGAN BARROWDawnU MAT [id number] [facility] 12:00:00 12:00:00 LISA Murdock [facility] 2019-10-18 2019-10-18 Urgent Annabel Ervin [facility] [id number] Univers 19:19:23 19:34:23 Care Unknown, Attending Health [id number] ity of Surgical [id number] Hari as Specialti [phone] Wa dical es 370 [facility] 2019-10-11 2019-10-11 Emergency X LOPEZ, [facility] ERT [id number] Univers 21:17:36 23:52:00 SAIRA neff of [facility] Results Test Description Test Time Test Comments Results Result Comments Source POCT URINALYSIS W SPECIFIC GRAVITY 2023-01-21 21:30:00 Test Item Value Reference Range Interpretation Comme nts POCT U SP GRAV (test code = 3255) 1.015 mg/dl 1.005-1.025 POCT PH U (test code = 3254) 5 mg/dl 5-8 POCT U LEUK EST (test code = 3263) neg Negative - Negative POCT U NIT (test code = 3262) neg Negative - Negative POCT U PROT (test code = 3259) neg Negative - Negative POCT U GLU (test code = 3256) 1000mg/ml Negative - Negative POCT U KETONE (test code = 3258) neg Negative - Negative POCT U UROBILI (test code = 3260) neg 0.2-1 POCT U BILI (test code = 3261) neg Negative - Negative POCT U BLD (test code = 3257) neg Negative - Negative POCT U COLOR (test code = 3266) pale yellow POCT U APPEAR (test code = 3267) clear Lab Interpretation (test code = 50788-4) Normal [facility]CIFIC [id number] 00:44:00 Test Item Value Reference Range Interpretation Comments POCT U SP GRAV (test code = 1.000 mg/dl 1.005-1.025 A 3255) POCT PH U (test code = 3254) 5 mg/dl 5-8 POCT U LEUK EST (test code = NEG Negative - Negative 3263) POCT U NIT (test code = 3262) NEG Negative - Negative POCT U PROT (test code = NEG Negative - Negative 3259) POCT U GLU (test code = 3256) 250 Negative - Negative POCT U KETONE (test code = NEG Negative - Negative 3258) POCT U UROBILI (test code = NEG 0.2-1 3260) POCT U BILI (test code = NEG Negative - Negative 3261) POCT U BLD (test code = 3257) NEG Negative - Negative POCT U COLOR (test code = YELLOW 3266) POCT U APPEAR (test code = CLEAR 3267) Lab Interpretation (test code Abnormal = 32567-8) [facility] GLUCOSE (AUTOMATED)2022-11-06 02:22:30 Test Item Value Reference Range Interpretation Comments POCT GLU (test code = 6252592030) 225 mg/dL 70-110 H Lab Interpretation (test code = Abnormal 65687-1) [facility] GLUCOSE (AUTOMATED)2022-11-06 00:29:57 Test Item Value Reference Range Interpretation Comments POCT GLU (test code = 3301145173) 328 mg/dL 70-110 H Lab Interpretation (test code = Abnormal 04867-0) [facility] MAMM BILATERAL KRISTIAN CAD [id number] 09:51:06Name: Selena : 1975 Sex: F - SCR MAMM BILATERAL KRISTIAN CAD DIGITALBILATERAL DIGITAL SCREENING MAMMOGRAM 3D/2D WITH CAD: 10/31/2022LINICAL: Asymptomatic. Family history of breast cancer. Digital breast tomosynthesis was performed in addition to routine CC and MLO views. Current mammographic images were evaluated by [employer] ImageBTI Systems[employer] CAD (computer-aided detection) software. Comparison is made to exams dated 04/12/2021 mammogram - [facility]- and 04/16/2020 mammogram - [facility]. The tissue of both breasts is heterogeneously dense. This may lower the sensitivity of mammography. There are benign calcifications in both breasts. No suspicious mass, architectural distortion, malignant type calcification, or lymph node abnormality detected. Breast architecture is stable compared to prior exams.IMPRESSION: BENIGNThere is no mammographic evidence of malignancy. Resume annual screening mammography in one year. (11/01/2023) Clarissa elam/iraida:11/05/2022 09:51:06 Entry: lt - 11/05/2022 10:33:12Attending Technologist: Tawana VILLASENOR, [facility]-FWImaging Technologist: Miya VILLASENOR, [facility]-FWletter sent: BIRADS 1-2 Normal Mammogram BI-RADS: 2 BenignPOCT URINALYSIS W SPECIFIC [id number] 01:34:00 Test Item Value Reference Range Interpretation Comments POCT U SP GRAV (test code = 1.025 mg/dl 1.005-1.025 3255) POCT PH U (test code = 3254) 6.0 mg/dl 5-8 POCT U LEUK EST (test code = negative Negative - Negative 3263) POCT U NIT (test code = 3262) negative Negative - Negative POCT U PROT (test code = negative Negative - Negative 3259) POCT U GLU (test code = 3256) 1000 Negative - Negative POCT U KETONE (test code = negative Negative - Negative 3258) POCT U UROBILI (test code = normal 0.2-1 3260) POCT U BILI (test code = negative Negative - Negative 3261) POCT U BLD (test code = 3257) negative Negative - Negative POCT U COLOR (test code = yellow 3266) POCT U APPEAR (test code = clear 3267) [facility]PREH[facility] METABOLIC [id number] 04:17:41 Test Item Value Reference Range Interpretation Comments GLUCOSE (test code = 136 MG/DL 70-99 H 2216) BUN (test code = 10 MG/DL 6-20 2207) CREATININE (test 0.63 MG/DL 0.60-1.30 code = 2214) eGFR (2020 CKD-EPI) 111 >60 (test code = 66432) ML/MIN/1.73 CALC BUN/CREAT (test 16 RATIO 6-28 code = 2235) SODIUM (test code = 142 MEQ/L 988-911 0136) POTASSIUM (test code 4.6 MEQ/L 3.5-5.4 = 2227) CHLORIDE (test code 102 MEQ/L 95-107 = 2215) CARBON DIOXIDE (test 21 MEQ/L 19-31 code = 2206) CALCIUM (test code = 10.0 MG/DL 8.5-10.5 2208) PROTEIN, TOTAL (test 7.2 G/DL 6.1-8.3 code = 2229) ALBUMIN (test code = 4.8 G/DL 3.5-5.2 2200) CALC GLOBULIN (test 2.4 G/DL 1.9-3.7 code = 2240) CALC A/G RATIO (test 2.0 RATIO 1.0-2.6 code = 2234) BILIRUBIN, TOTAL 0.6 MG/DL See_Comment [Automated message] (test code = 2207) The syste m which generated this result transmit rick reference range : <=1.2. The refe rence range was not u sed to interpret th is result as normal/abnormal . ALKALINE PHOSPHATASE 107 U/L 40-118 (test code = 2204) AST (test code = 15 U/L 9-40 2217) ALT (test code = 10 U/L 5-40 2218) LIPID [id number] 04:17:41 Test Item Value Reference Range Interpretation Comments CHOLESTEROL (test 169 MG/DL <200 code = 2210) TRIGLYCERIDES (test 346 MG/DL <150 H code = 2232) HDL CHOLESTEROL (test 33 MG/DL >39 L code = 2220) CALC LDL CHOL (test 90 MG/DL <100 NOTE: C ALCULATED LDL code = 2237) IS BASED ON SHERRY-SCHNEIDER METHOD WHICHINCLUDES ADJUSTABLE TRIGLYCERIDE:VL DL CHOLESTEROL RAT IO.THIS FACTOR VARIES B Y MEASURED TRIGLY CERIDE AND NON-HDLCHOL ESTEROL CONCENTRATIONS WITH INCREASED CALCU LATED LDL SEENIN HIGH ER TRIGLYCERIDE OR LOWER NON-HDL SPECIME NS. FOR MOREINFORMATION , SEE CLIENT ANNOUNCE MENT AT [email or web address] [email or web address] LDL/HDL 2.73 RATIO <3.22 UNLESS O THERWISE (test code = 223) INDICATED , ALL TESTING PERFORMED [facility], [address] [place] [address] MARISSA CAROLINE DIRECTOR: LAYO MERCEDES M.D. CLIA NUMBER [id number] CAP ACCREDITATION N O. [id number] POC-Glucose [id number] 10:50:37 Test Item Value Reference Range Interpretation Comments POC-Glucose Meter (test 109 mg/dL 70-110 : TE STED AT [facility] code = 1538) [address] [facility], 770 30: Metal Smelter/Techni natalio ID = [id number] for FABBY, SHEILA Lab Interpretation (test Normal code = 51016-3) [facility]-Glucose [id number] 10:50:37 Test Item Value Reference Range Interpretation Comments POC-Glucose Meter (test 109 mg/dL 70-110 : TE STED AT [facility] code = 1538) [address] [place] [address], 770 30: Metal Smelter/Techni natalio ID = [id number] for TUNGOS, SHEILA Lab Interpretation (test Normal code = 37529-6) [facility]-Glucose [id number] 10:50:37 Test Item Value Reference Range Interpretation Comments POC-Glucose Meter (test 109 mg/dL 70-110 : TE STED AT [facility] code = 1538) [address] [facility], 770 30: Metal Smelter/Techni natalio ID = [id number] for TUNGOS, SHEILA Lab Interpretation (test Normal code = 55899-2) [facility]-Glucose [id number] 10:50:37 Test Item Value Reference Range Interpretation Comments POC-Glucose Meter (test 109 mg/dL 70-110 : TE STED AT [facility] code = 1538) [address] [place] [address], 770 30: Metal Smelter/Techni natalio ID = [id number] for FABBY, SHEILA Lab Interpretation (test Normal code = 26896-1) [facility] [id number] 10:50:37 Test Item Value Reference Range Interpretation Comments POC-GLUCOSE METER 109 mg/dL 70-110 : TESTED A T [facility] [address] (BEAKER) (test code [facility], = 1538) [address]: Metal Smelter/Techni natalio ID = [id number] for BARTOLO MATHEWS, SHEILA POCT , [id number] 10:11:00 Test Item Value Reference Range Interpretation Comments Test Urine, POC (test Negative code = 5427440) Control line present?, POC (test Yes code = 9024303) Background clear?, POC (test code Yes = 7975743) UPT Cassette Lot #, POC (test code 5507622 = 1891523) UPT Cassette Expiration Date, POC 09/03/2023 (test code = 3273549) Lab Interpretation (test code = Normal 65093-7) [facility] , [id number] 10:11:00 Test Item Value Reference Range Interpretation Comments Test Urine, POC (test Negative code = 1137030) Control line present?, POC (test Yes code = 9924249) Background clear?, POC (test code Yes = 3263459) UPT Cassette Lot #, POC (test code 0008132 = 7057018) UPT Cassette Expiration Date, POC 09/03/2023 (test code = 9423191) Lab Interpretation (test code = Normal 38076-9) [facility] , [id number] 10:11:00 Test Item Value Reference Range Interpretation Comments Test Urine, POC (test Negative code = 7784347) Control line present?, POC (test Yes code = 5195354) Background clear?, POC (test code Yes = 8014932) UPT Cassette Lot #, POC (test code 2523051 = 1655404) UPT Cassette Expiration Date, POC 09/03/2023 (test code = 0836026) Lab Interpretation (test code = Normal 05814-4) [facility] , [id number] 10:11:00 Test Item Value Reference Range Interpretation Comments Test Urine, POC (test Negative code = 6024744) Control line present?, POC (test Yes code = 1142956) Background clear?, POC (test code Yes = 0960765) UPT Cassette Lot #, POC (test code 1627799 = 8709299) UPT Cassette Expiration Date, POC 09/03/2023 (test code = 3922916) Lab Interpretation (test code = Normal 53085-3) [facility] URINALYSIS W/O SPECIFIC [id number] 15:10:00 Test Item Value Reference Range Interpretation Comments POCT PH U (test code = 3254) 5 mg/dl 5-8 POCT U LEUK EST (test code = 2+ Negative - Negative 3263) POCT U NIT (test code = 3262) Negative Negative - Negative POCT U PROT (test code = 3259) 3+ Negative - Negative POCT U GLU (test code = 3256) 4+ Negative - Negative POCT U KETONE (test code = 3258) Negative Negative - Negative POCT U BLD (test code = 3257) 5+ Negative - Negative [facility]/AUTO DIFF WITH [id number] 03:37:19 Test Item Value Reference Range Interpretation Comments WBC (test code = 10.8 K/UL 3.5-11.0 1001) RBC (test code = 4.64 M/UL 3.80-5.40 1002) HEMOGLOBIN (test 14.0 G/DL 11.5-15.5 code = 1003) HEMATOCRIT (test 40.3 % 34.0-45.0 code = 1004) MCV (test code = 86.9 fL 80.0-99.0 1005) MCH (test code = 30.2 PG 25.0-33.0 1006) MCHC (test code = 34.7 G/DL 31.0-36.0 1007) RDW (test code = 13.1 % 11.5-15.0 1038) NEUTROPHILS (test 74.0 % code = 1008) LYMPHOCYTES (test 18.3 % code = 1010) MONOCYTES (test code 5.8 % = 1011) EOSINOPHILS (test 0.9 % code = 1012) BASOPHILS (test code 0.7 % = 1013) IMMATURE 0.3 % GRANULOCYTES (test code = 1036) NUCLEATED RBCS (test 0.0 /100 See_Comment [Autom ated message] code = 1065) WBC'S The system [employer] generated this result transmitted ref erence range: 0.0. The reference range was not used to int erpret this result as normal/abnormal . PLATELET COUNT (test 184 K/UL 130-400 code = 1015) ABSOLUTE NEUTROPHILS 7.97 K/UL 1.50-7.50 H (test code = 1066) ABSOLUTE LYMPHOCYTES 1.97 K/UL 1.00-4.00 (test code = 1067) ABSOLUTE MONOCYTES 0.63 K/UL 0.20-1.00 (test code = 1068) ABSOLUTE EOSINOPHILS 0.10 K/UL 0.00-0.50 (test code = 1040) ABSOLUTE BASOPHILS 0.08 K/UL 0.00-0.20 (test code = 1069) ABS IMMATURE 0.03 K/UL 0.00-0.10 GRANULOCYTES (test code = 1020) ABS NUCLEATED RBCS 0.00 K/UL 0.00-0.11 UNLESS O THERWISE (test code = 61765) INDICATE D, ALL TESTING PERFORM ED ATCLINICAL PATH [facility]. [address] [place] [address] [facility] DIRECTOR: LAYO MERCEDES M.D. CLIA NUMBER [id number] CAP ACCREDITATION N O. [id number] CBC W/AUTO [id number] 00:00:00 Test Item Value Reference Range Interpretation Comments WBC (test code = 1001) 10.8 K/UL RBC (test code = 1002) 4.64 M/UL HEMOGLOBIN (test code = 1003) 14.0 G/DL HEMATOCRIT (test code = 1004) 40.3 % MCV (test code = 1005) 86.9 fL MCH (test code = 1006) 30.2 PG MCHC (test code = 1007) 34.7 G/DL RDW (test code = 1038) 13.1 % NEUTROPHILS (test code = 1008) 74.0 % LYMPHOCYTES (test code = 1010) 18.3 % MONOCYTES (test code = 1011) 5.8 % EOSINOPHILS (test code = 1012) 0.9 % BASOPHILS (test code = 1013) 0.7 % IMMATURE GRANULOCYTES (test 0.3 % code = 1036) NUCLEATED RBCS (test code = 0.0 /100WBC'S 1065) PLATELET COUNT (test code = 184 K/UL 1015) ABSOLUTE NEUTROPHILS (test code 7.97 K/UL = 1066) ABSOLUTE LYMPHOCYTES (test code 1.97 K/UL = 1067) ABSOLUTE MONOCYTES (test code = 0.63 K/UL 1068) ABSOLUTE EOSINOPHILS (test code 0.10 K/UL = 1040) ABSOLUTE BASOPHILS (test code = 0.08 K/UL 1069) ABS IMMATURE GRANULOCYTES (test 0.03 K/UL code = 1020) ABS NUCLEATED RBCS (test code = 0.00 K/UL 50846) CBC W/AUTO [id number] 00:00:00 Test Item Value Reference Range Interpretation Comments WBC (test code = 1001) 10.8 K/UL RBC (test code = 1002) 4.64 M/UL HEMOGLOBIN (test code = 1003) 14.0 G/DL HEMATOCRIT (test code = 1004) 40.3 % MCV (test code = 1005) 86.9 fL MCH (test code = 1006) 30.2 PG MCHC (test code = 1007) 34.7 G/DL RDW (test code = 1038) 13.1 % NEUTROPHILS (test code = 1008) 74.0 % LYMPHOCYTES (test code = 1010) 18.3 % MONOCYTES (test code = 1011) 5.8 % EOSINOPHILS (test code = 1012) 0.9 % BASOPHILS (test code = 1013) 0.7 % IMMATURE GRANULOCYTES (test 0.3 % code = 1036) NUCLEATED RBCS (test code = 0.0 /100WBC'S 1065) PLATELET COUNT (test code = 184 K/UL 1015) ABSOLUTE NEUTROPHILS (test code 7.97 K/UL = 1066) ABSOLUTE LYMPHOCYTES (test code 1.97 K/UL = 1067) ABSOLUTE MONOCYTES (test code = 0.63 K/UL 1068) ABSOLUTE EOSINOPHILS (test code 0.10 K/UL = 1040) ABSOLUTE BASOPHILS (test code = 0.08 K/UL 1069) ABS IMMATURE GRANULOCYTES (test 0.03 K/UL code = 1020) ABS NUCLEATED RBCS (test code = 0.00 K/UL 97771) CBC W/AUTO [id number] 00:00:00 Test Item Value Reference Range Interpretation Comments WBC (test code = 1001) 10.8 K/UL RBC (test code = 1002) 4.64 M/UL HEMOGLOBIN (test code = 1003) 14.0 G/DL HEMATOCRIT (test code = 1004) 40.3 % MCV (test code = 1005) 86.9 fL MCH (test code = 1006) 30.2 PG MCHC (test code = 1007) 34.7 G/DL RDW (test code = 1038) 13.1 % NEUTROPHILS (test code = 1008) 74.0 % LYMPHOCYTES (test code = 1010) 18.3 % MONOCYTES (test code = 1011) 5.8 % EOSINOPHILS (test code = 1012) 0.9 % BASOPHILS (test code = 1013) 0.7 % IMMATURE GRANULOCYTES (test 0.3 % code = 1036) NUCLEATED RBCS (test code = 0.0 /100WBC'S 1065) PLATELET COUNT (test code = 184 K/UL 1015) ABSOLUTE NEUTROPHILS (test code 7.97 K/UL = 1066) ABSOLUTE LYMPHOCYTES (test code 1.97 K/UL = 1067) ABSOLUTE MONOCYTES (test code = 0.63 K/UL 1068) ABSOLUTE EOSINOPHILS (test code 0.10 K/UL = 1040) ABSOLUTE BASOPHILS (test code = 0.08 K/UL 1069) ABS IMMATURE GRANULOCYTES (test 0.03 K/UL code = 1020) ABS NUCLEATED RBCS (test code = 0.00 K/UL 88001) HEMOGLOBIN [id number] 08:41:00 Test Item Value Reference Range Interpretation Comments HEMOGLOBIN A1c (test 7.3 % 4.2-5.6 H AMERIC AN DIABETES code = 54140) ASSOCIATION IDELINES FOR HGB A1C: PREDIABETES/INC REASED RISK . . . . . . . 5.7 -6.4% DIAGNOSIS OF DI ABETES . . . . . . . . . >=6 .5% WITH CONFIRMATION OR APPROPRIATE SYMPTOMS NOTE: ASSAY MAY BE AFFECTED BY HEMOGLOBINOPATH IES (SICKLE CELL ANEMIA, S- C DISEASE, OTHERS) OR ALMA FICIALLY LOWERED BY DECR EASED RED CELL SURVIVAL ( HEMOLYTIC ANEMIAS, BLOOD LOSS, ETC.). CONSIDER ALTERN ATE TESTING OR LABORATORY C ONSULTATION. COMPREHENSIVE METABOLIC [id number] 05:22:49 Test Item Value Reference Range Interpretation Comments GLUCOSE (test code = 170 MG/DL 70-99 H 2216) BUN (test code = 8 MG/DL 6-20 2207) CREATININE (test 0.66 MG/DL 0.60-1.30 code = 2214) eGFR (2020 CKD-EPI) 110 >60 (test code = 08494) ML/MIN/1.73 CALC BUN/CREAT (test 12 RATIO 6-28 code = 2235) SODIUM (test code = 145 MEQ/L 200-476 9432) POTASSIUM (test code 4.3 MEQ/L 3.5-5.4 = 2227) CHLORIDE (test code 104 MEQ/L 95-107 = 2214) CARBON DIOXIDE (test 25 MEQ/L 19-31 code = 2206) CALCIUM (test code = 10.4 MG/DL 8.5-10.5 2208) PROTEIN, TOTAL (test 7.4 G/DL 6.1-8.3 code = 2229) ALBUMIN (test code = 4.6 G/DL 3.5-5.2 2200) CALC GLOBULIN (test 2.8 G/DL 1.9-3.7 code = 2240) CALC A/G RATIO (test 1.6 RATIO 1.0-2.6 code = 2234) BILIRUBIN, TOTAL 0.9 MG/DL See_Comment [Automated message] (test code = 2207) The syste m which generated this result transmit rick reference range : <=1.2. The refe rence range was not u sed to interpret th is result as normal/abnormal . ALKALINE PHOSPHATASE 113 U/L 40-116 (test code = 2204) AST (test code = 37 U/L 9-40 2217) ALT (test code = 37 U/L 5-40 2218) LIPID [id number] 05:22:49 Test Item Value Reference Range Interpretation Comments CHOLESTEROL (test 123 MG/DL <200 code = 2210) TRIGLYCERIDES (test 231 MG/DL <150 H code = 2232) HDL CHOLESTEROL (test 31 MG/DL >39 L code = 2220) CALC LDL CHOL (test 63 MG/DL <100 NOTE: C ALCULATED LDL code = 2237) IS BASED ON SHERRY-SCHNEIDER METHOD WHICHINCLUDES ADJUSTABLE TRIGLYCERIDE:VL DL CHOLESTEROL RAT IO.THIS FACTOR VARIES B Y MEASURED TRIGLY CERIDE AND NON-HDLCHOL ESTEROL CONCENTRATIONS WITH INCREASED CALCU LATED LDL SEENIN HIGH ER TRIGLYCERIDE OR LOWER NON-HDL SPECIME NS. FOR MOREINFORMATION , SEE CLIENT ANNOUNCE MENT AT [email or web address] RATIO LDL/HDL 2.03 RATIO <3.22 UNLESS O THERWISE (test code = 223) INDICATED , ALL TESTING PERFORMED [facility], [address] [place] [address] LABOR ATORY DIRECTOR: LAYO MERCEDES M.D. CLIA NUMBER [id number] CAP ACCREDITATION N O. [id number] HEMOGLOBIN [id number] 00:00:00 Test Item Value Reference Range Interpretation Comments HEMOGLOBIN A1c (test code = 37643) 7.3 % HEMOGLOBIN [id number] 00:00:00 Test Item Value Reference Range Interpretation Comments HEMOGLOBIN A1c (test code = 19280) 7.3 % HEMOGLOBIN [id number] 00:00:00 Test Item Value Reference Range Interpretation Comments HEMOGLOBIN A1c (test code = 78657) 7.3 % COMPREHENSIVE METABOLIC [id number] 00:00:00 Test Item Value Reference Range Interpretation Comments GLUCOSE (test code = 2217) 170 MG/DL BUN (test code = 2208) 8 MG/DL CREATININE (test code = 2214) 0.66 MG/DL eGFR (2020 CKD-EPI) (test 110 ML/MIN/1.73 code = 36737) CALC BUN/CREAT (test code = 12 RATIO 2235) SODIUM (test code = 2231) 145 MEQ/L POTASSIUM (test code = 2228) 4.3 MEQ/L CHLORIDE (test code = 2215) 104 MEQ/L CARBON DIOXIDE (test code = 25 MEQ/L 2205) CALCIUM (test code = 2209) 10.4 MG/DL PROTEIN, TOTAL (test code = 7.4 G/DL 2228) ALBUMIN (test code = 2201) 4.6 G/DL CALC GLOBULIN (test code = 2.8 G/DL 2239) CALC A/G RATIO (test code = 1.6 RATIO 4) BILIRUBIN, TOTAL (test code = 0.9 MG/DL 2206) ALKALINE PHOSPHATASE (test 113 U/L code = 2204) AST (test code = 2218) 37 U/L ALT (test code = 2219) 37 U/L COMPREHENSIVE METABOLIC [id number] 00:00:00 Test Item Value Reference Range Interpretation Comments GLUCOSE (test code = 2217) 170 MG/DL BUN (test code = 2208) 8 MG/DL CREATININE (test code = 2214) 0.66 MG/DL eGFR (2020 CKD-EPI) (test 110 ML/MIN/1.73 code = 23843) CALC BUN/CREAT (test code = 12 RATIO 2235) SODIUM (test code = 2231) 145 MEQ/L POTASSIUM (test code = 2228) 4.3 MEQ/L CHLORIDE (test code = 2215) 104 MEQ/L CARBON DIOXIDE (test code = 25 MEQ/L 2205) CALCIUM (test code = 2209) 10.4 MG/DL PROTEIN, TOTAL (test code = 7.4 G/DL 2228) ALBUMIN (test code = 2201) 4.6 G/DL CALC GLOBULIN (test code = 2.8 G/DL 2239) CALC A/G RATIO (test code = 1.6 RATIO 4) BILIRUBIN, TOTAL (test code = 0.9 MG/DL 2206) ALKALINE PHOSPHATASE (test 113 U/L code = 2204) AST (test code = 2218) 37 U/L ALT (test code = 2219) 37 U/L LIPID [id number] 00:00:00 Test Item Value Reference Range Interpretation Comments CHOLESTEROL (test code = 2210) 123 MG/DL TRIGLYCERIDES (test code = 2232) 231 MG/DL HDL CHOLESTEROL (test code = 2220) 31 MG/DL CALC LDL CHOL (test code = 2237) 63 MG/DL RISK RATIO LDL/HDL (test code = 2.03 RATIO 2238) LIPID [id number] 00:00:00 Test Item Value Reference Range Interpretation Comments CHOLESTEROL (test code = 2210) 123 MG/DL TRIGLYCERIDES (test code = 2232) 231 MG/DL HDL CHOLESTEROL (test code = 2220) 31 MG/DL CALC LDL CHOL (test code = 2237) 63 MG/DL RISK RATIO LDL/HDL (test code = 2.03 RATIO 2238) POC [id number] 23:37:56 Test Item Value Reference Range Interpretation Comments POC glucose (test code 393 mg/dL 65-99 HH Opera tor Name: Clarence = [id number]) NicolaDevice ID : [id number] able: [facility] Notified temporary data entry clerk Interpretation Abnormal (test code = 39570-4) [facility] [id number] 23:37:56 Test Item Value Reference Range Interpretation Comments POC glucose (test code 393 mg/dL 65-99 HH Opera tor Name: Clarence = 85210-3) NicopalDevice ID : [id number] able: [facility] Notified temporary data entry clerk Interpretation Abnormal (test code = 48007-6) [facility] [id number] 23:37:56 Test Item Value Reference Range Interpretation Comments POC glucose (test code 393 mg/dL 65-99 HH Opera tor Name: Clarence = 76103-8) NicolaDevice ID : [id number] able: TM Notified temporary data entry clerk Interpretation Abnormal (test code = 41334-5) [facility] [id number] 23:37:56 Test Item Value Reference Range Interpretation Comments POC glucose (test code 393 mg/dL 65-99 Opera cruz Name: Clarence = [id number]) NicolaDevice ID : [id number] able: TM Notified temporary data entry clerk Interpretation Abnormal (test code = 61274-8) [address]2021-11-13 00:27:14 Test Item Value Reference Range Interpretation Comments Ventricular rate (test code = 253) Atrial rate (test code = 255) NE interval (test code = 266) QRSD interval (test code = 260) QT interval (test code = 264) QTC interval (test code = 265) P axis 1 (test code = 267) QRS axis 1 (test code = 268) T wave axis (test code = 270) EKG impression (test Sinus code = 273) tachycardia-Otherwise normal ECG-No previous ECGs available-Electronica lly Signed By Collette Ambrosio MD ([id number]) on 08/16/2021 6:27:09 [address]2021-11-13 00:27:14 Test Item Value Reference Range Interpretation Comments Ventricular rate (test code = 253) Atrial rate (test code = 255) NE interval (test code = 266) QRSD interval (test code = 260) QT interval (test code = 264) QTC interval (test code = 265) P axis 1 (test code = 267) QRS axis 1 (test code = 268) T wave axis (test code = 270) EKG impression (test Sinus code = 273) tachycardia-Otherwise normal ECG-No previous ECGs available-Electronica lly Signed By Collette Ambrosio MD ([id number]) on 08/16/2021 6:27:09 PM [address]2021-11-13 00:27:14 Test Item Value Reference Range Interpretation Comments Ventricular rate (test code = 253) Atrial rate (test code = 255) NE interval (test code = 266) QRSD interval (test code = 260) QT interval (test code = 264) QTC interval (test code = 265) P axis 1 (test code = 267) QRS axis 1 (test code = 268) T wave axis (test code = 270) EKG impression (test Sinus code = 273) tachycardia-Otherwise normal ECG-No previous ECGs available-Electronica lly Signed By Collette Ambrosio MD ([id number]) on 08/16/2021 6:27:09 PM [facility] [id number] 00:27:14 Test Item Value Reference Range Interpretation Comments Ventricular rate (test code = 253) Atrial rate (test code = 255) NE interval (test code = 266) QRSD interval (test code = 260) QT interval (test code = 264) QTC interval (test code = 265) P axis 1 (test code = 267) QRS axis 1 (test code = 268) T wave axis (test code = 270) EKG impression (test Sinus code = 273) tachycardia-Otherwise normal ECG-No previous ECGs available-Electronica lly Signed By Collette Ambrosio MD ([id number]) on 08/16/2021 6:27:09 PM [facility] YanxftwxCQRO-GhX-1 (COVID-19) RNA [Presence] in Respiratory specimen by CARLEY with probe [id number] 17:26:57 Test Item Value Reference Range Interpretation Comments SARS-CoV-2 (COVID-19) RNA Not detected Not-Detected [Presence] in Respiratory specimen by CARLEY with probe detection (test code = 46914-8) Whether patient is employed in a healthcare setting (test code = 40895-9) Whether the patient has symptoms related to condition of interest (test code = 60976-7) Patient was hospitalized because of this condition (test code = 37110-0) Whether the patient was admitted to intensive care unit (ICU) for condition of interest (test code = 98414-5) Whether patient resides in a congregate care setting (test code = 33348-4) status (test code = 01601-5) [facility] LIVER MULTI SCAN QUANTITATIVE TISSUE ANALYSIS 2021-08-16 09:22:04 [facility] : 1975 Sex: FTechnical only.CR - XRAY XRAY DEXA BONE [id number] 11:01:00 [facility] : 1975 Sex: FCLINICAL INDICA TION: K75.81, Nonalcoholic steatohepatitis (KAT) TECHNIQUE: Bone densitometry is performed using the Hologic Dexa. Imaging of the spine and hip are performed. Quantitative analysis is accomplished.FINDINGS:COMPARISON: NoneThe BMD at the left femoral neck is 0.65 gms/cm.sq. This is consistent with young adult T-score of -1.9 and age matched Z-score of -1.6.The BMD at the right femoral neck is 0.70 gms/cm.sq. This is consistent with young adult T-score of -1.5 and age matched Z-score of -1.2.Average bone mineral density of L1 - L4 is 0.96 gms/cm.sq. This is consistent with young adult T-score of -0.8 and age matched Z-score of -0.4.IMPRESSION:WHO diagnostic category is osteopenia based upon bilateral hips.Recommendation: none.LIPID [id number] 00:00:00 Test Item Value Reference Range Interpretation Comments CHOLESTEROL (test code = 2210) 135 MG/DL TRIGLYCERIDES (test code = 2232) 216 MG/DL HDL CHOLESTEROL (test code = 2220) 35 MG/DL CALC LDL CHOL (test code = 2237) 69 MG/DL RISK RATIO LDL/HDL (test code = 1.97 RATIO 2238) LIPID [id number] 00:00:00 Test Item Value Reference Range Interpretation Comments CHOLESTEROL (test code = 2210) 135 MG/DL TRIGLYCERIDES (test code = 2232) 216 MG/DL HDL CHOLESTEROL (test code = 2220) 35 MG/DL CALC LDL CHOL (test code = 2237) 69 MG/DL RISK RATIO LDL/HDL (test code = 1.97 RATIO 2238) SCR MAMM BILATERAL KRISTIAN CAD [id number] 11:16:06 Name: Selena : 1975 Sex: F - SCR MAMM BILATERAL KRISTIAN CAD DIGITALBILATERAL DIGITAL SCREENING MAMMOGRAM 3D/2D WITH CAD: 04/12/2021LINICAL: Asymptomatic. Digital breast tomosynthesis was performed in addition to routine CC and MLO views. Current mammographic images were evaluated by [employer] CAD (computer-aided detection) software. Comparison is made to exam date04/16/2020 mammogram - [facility]. The tissue of both breasts is heterogeneously dense. This may lower the sensitivity of mammography. No suspicious mass, architectural distortion, malignant type c alcification, or lymph node abnormality detected. Breast architecture is stable compared to prior exams.IMPRESSION: NEGATIVEThere is no mammographic evidence of malignancy. Resume annual screening mammography in one year. Angel hurtado/penrad:04/19/2021 11:16:06 Employee Communications Intern: Brandie VILLASENOR, [facility]-FWletter sent: BIRADS 1-2 Normal Mammogram BI-RADS: 1 Negative HCG, QUANTITATIVE [ADDED]2021-04-11 00:00:00 Test Item Value Reference Range Interpretation Comments HCG, QUANTITATIVE (test code = <5 MIU/ML 2506) HCG, QUANTITATIVE [ADDED]2021-04-11 00:00:00 Test Item Value Reference Range Interpretation Comments HCG, QUANTITATIVE (test code = <5 MIU/ML 2506) HCG, QUANTITATIVE [ADDED]2021-04-11 00:00:00 Test Item Value Reference Range Interpretation Comments HCG, QUANTITATIVE (test code = <5 MIU/ML 2506) VAGINAL PATHOGENS DNA [id number] 00:00:00 Test Item Value Reference Range Interpretation Comments JACOB SPECIES (test code = ) NEGATIVE G. VAGINALIS (test code = 11085) POSITIVE T. VAGINALIS (test code = ) NEGATIVE VAGINAL PATHOGENS DNA [id number] 00:00:00 Test Item Value Reference Range Interpretation Comments JACOB SPECIES (test code = ) NEGATIVE G. VAGINALIS (test code = 86461) POSITIVE T. VAGINALIS (test code = ) NEGATIVE HEMOGLOBIN [id number] 00:00:00 Test Item Value Reference Range Interpretation Comments HEMOGLOBIN A1c (test code = 43021) 9.5 % HEMOGLOBIN [id number] 00:00:00 Test Item Value Reference Range Interpretation Comments HEMOGLOBIN A1c (test code = 32179) 9.5 % HEMOGLOBIN [id number] 00:00:00 Test Item Value Reference Range Interpretation Comments HEMOGLOBIN A1c (test code = 51777) 9.5 % LIPID [id number] 00:00:00 Test Item Value Reference Range Interpretation Comments CHOLESTEROL (test code = 2210) 132 MG/DL TRIGLYCERIDES (test code = 2232) 154 MG/DL HDL CHOLESTEROL (test code = 2220) 39 MG/DL CALC LDL CHOL (test code = 2237) 69 MG/DL RISK RATIO LDL/HDL (test code = 1.77 RATIO 2238) LIPID [id number] 00:00:00 Test Item Value Reference Range Interpretation Comments CHOLESTEROL (test code = 2210) 132 MG/DL TRIGLYCERIDES (test code = 2232) 154 MG/DL HDL CHOLESTEROL (test code = 2220) 39 MG/DL CALC LDL CHOL (test code = 2237) 69 MG/DL RISK RATIO LDL/HDL (test code = 1.77 RATIO 2238) HEMOGLOBIN A1c [ADDED]2020-10-18 00:00:00 Test Item Value Reference Range Interpretation Comments HEMOGLOBIN A1c (test code = 41984) 8.9 % HEMOGLOBIN A1c [ADDED]2020-10-18 00:00:00 Test Item Value Reference Range Interpretation Comments HEMOGLOBIN A1c (test code = 13753) 8.9 % HEMOGLOBIN A1c [ADDED]2020-10-18 00:00:00 Test Item Value Reference Range Interpretation Comments HEMOGLOBIN A1c (test code = 48256) 8.9 % CBC W/AUTO DIFF WITH PLATELETS [ADDED]2020-10-18 00:00:00 Test Item Value Reference Range Interpretation Comments WBC (test code = 1001) 9.4 K/UL RBC (test code = 1002) 4.63 M/UL HEMOGLOBIN (test code = 1003) 14.1 G/DL HEMATOCRIT (test code = 1004) 42.2 % MCV (test code = 1005) 91.1 fL MCH (test code = 1006) 30.5 PG MCHC (test code = 1007) 33.4 G/DL RDW (test code = 1038) 12.9 % NEUTROPHILS (test code = 1008) 72.1 % LYMPHOCYTES (test code = 1010) 18.9 % MONOCYTES (test code = 1011) 6.5 % EOSINOPHILS (test code = 1012) 1.5 % BASOPHILS (test code = 1013) 1.0 % PLATELET COUNT (test code = 1015) 151 K/UL CBC W/AUTO DIFF WITH PLATELETS [ADDED]2020-10-18 00:00:00 Test Item Value Reference Range Interpretation Comments WBC (test code = 1001) 9.4 K/UL RBC (test code = 1002) 4.63 M/UL HEMOGLOBIN (test code = 1003) 14.1 G/DL HEMATOCRIT (test code = 1004) 42.2 % MCV (test code = 1005) 91.1 fL MCH (test code = 1006) 30.5 PG MCHC (test code = 1007) 33.4 G/DL RDW (test code = 1038) 12.9 % NEUTROPHILS (test code = 1008) 72.1 % LYMPHOCYTES (test code = 1010) 18.9 % MONOCYTES (test code = 1011) 6.5 % EOSINOPHILS (test code = 1012) 1.5 % BASOPHILS (test code = 1013) 1.0 % PLATELET COUNT (test code = 1015) 151 K/UL CBC W/AUTO DIFF WITH PLATELETS [ADDED]2020-10-18 00:00:00 Test Item Value Reference Range Interpretation Comments WBC (test code = 1001) 9.4 K/UL RBC (test code = 1002) 4.63 M/UL HEMOGLOBIN (test code = 1003) 14.1 G/DL HEMATOCRIT (test code = 1004) 42.2 % MCV (test code = 1005) 91.1 fL MCH (test code = 1006) 30.5 PG MCHC (test code = 1007) 33.4 G/DL RDW (test code = 1038) 12.9 % NEUTROPHILS (test code = 1008) 72.1 % LYMPHOCYTES (test code = 1010) 18.9 % MONOCYTES (test code = 1011) 6.5 % EOSINOPHILS (test code = 1012) 1.5 % BASOPHILS (test code = 1013) 1.0 % PLATELET COUNT (test code = 1015) 151 K/UL COMPREHENSIVE METABOLIC PANEL [ADDED]2020-10-18 00:00:00 Test Item Value Reference Range Interpretation Comments GLUCOSE (test code = 2217) 319 MG/DL BUN (test code = 2208) 12 MG/DL CREATININE (test code = 2214) 0.62 MG/DL eGFR AMER. (test code 127 ML/MIN/1.73 = 39270) eGFR NON- AMER. (test 110 ML/MIN/1.73 code = 71995) CALC BUN/CREAT (test code = 19 RATIO 2235) SODIUM (test code = 2231) 140 MEQ/L POTASSIUM (test code = 2228) 4.0 MEQ/L CHLORIDE (test code = 2215) 99 MEQ/L CARBON DIOXIDE (test code = 29 MEQ/L 2205) CALCIUM (test code = 2209) 10.0 MG/DL PROTEIN, TOTAL (test code = 7.1 G/DL 2228) ALBUMIN (test code = 2201) 4.3 G/DL CALC GLOBULIN (test code = 2.8 G/DL 2239) CALC A/G RATIO (test code = 1.5 RATIO 223) BILIRUBIN, TOTAL (test code = 0.6 MG/DL 2207) ALKALINE PHOSPHATASE (test 139 U/L code = 2204) AST (test code = 2218) 38 U/L ALT (test code = 2219) 53 U/L COMPREHENSIVE METABOLIC PANEL [ADDED]2020-10-18 00:00:00 Test Item Value Reference Range Interpretation Comments GLUCOSE (test code = 2217) 319 MG/DL BUN (test code = 2208) 12 MG/DL CREATININE (test code = 2214) 0.62 MG/DL eGFR AMER. (test code 127 ML/MIN/1.73 = 05952) eGFR NON- AMER. (test 110 ML/MIN/1.73 code = 20194) CALC BUN/CREAT (test code = 19 RATIO 2235) SODIUM (test code = 2231) 140 MEQ/L POTASSIUM (test code = 2228) 4.0 MEQ/L CHLORIDE (test code = 2215) 99 MEQ/L CARBON DIOXIDE (test code = 29 MEQ/L 2205) CALCIUM (test code = 2209) 10.0 MG/DL PROTEIN, TOTAL (test code = 7.1 G/DL 2228) ALBUMIN (test code = 2201) 4.3 G/DL CALC GLOBULIN (test code = 2.8 G/DL 2240) CALC A/G RATIO (test code = 1.5 RATIO 2234) BILIRUBIN, TOTAL (test code = 0.6 MG/DL 2206) ALKALINE PHOSPHATASE (test 139 U/L code = 2204) AST (test code = 2218) 38 U/L ALT (test code = 2219) 53 U/L LIPID PANEL [ADDED]2020-10-18 00:00:00 Test Item Value Reference Range Interpretation Comments CHOLESTEROL (test code = 2210) 143 MG/DL TRIGLYCERIDES (test code = 2232) 342 MG/DL HDL CHOLESTEROL (test code = 2220) 37 MG/DL CALC LDL CHOL (test code = 2237) 65 MG/DL RISK RATIO LDL/HDL (test code = 1.76 RATIO 2238) LIPID PANEL [ADDED]2020-10-18 00:00:00 Test Item Value Reference Range Interpretation Comments CHOLESTEROL (test code = 2210) 143 MG/DL TRIGLYCERIDES (test code = 2232) 342 MG/DL HDL CHOLESTEROL (test code = 2220) 37 MG/DL CALC LDL CHOL (test code = 2237) 65 MG/DL RISK RATIO LDL/HDL (test code = 1.76 RATIO 2238) MRI ABDOMEN [id number] 15:42:24Technical only.COMPREHENSIVE METABOLIC PANEL 2020-05-04 00:00:00 Test Item Value Reference Range Interpretation Comments GLUCOSE (test code = 230 mg/dL 2345-7) UREA NITROGEN (BUN) 17 mg/dL (test code = 3094-0) CREATININE (test code = 0.71 mg/dL 2160-0) eGFR NON-AFR. MONTENEGRIN 104 mL/min/1.73m2 (test code = 75926-9) eGFR 120 mL/min/1.73m2 (test code = 25980-2) BUN/CREATININE RATIO NOT APPLICABLE (calc) (test code = 3097-3) SODIUM (test code = 138 mmol/L 2951-2) POTASSIUM (test code = 4.2 mmol/L 2823-3) CHLORIDE (test code = 104 mmol/L 2075-0) CARBON DIOXIDE (test 20 mmol/L code = 2027-9) CALCIUM (test code = 9.8 mg/dL 94042-8) PROTEIN, TOTAL (test 6.8 g/dL code = 2885-2) ALBUMIN (test code = 4.3 g/dL 1751-7) GLOBULIN (test code = 2.5 g/dL(calc) 71353-9) ALBUMIN/GLOBULIN RATIO 1.7 (calc) (test code = 1759-0) BILIRUBIN, TOTAL (test 1.1 mg/dL code = 1975-2) ALKALINE PHOSPHATASE 88 U/L (test code = 6768-6) AST (test code = 37 U/L 1920-8) ALT (test code = 36 U/L 1742-6) LIPID [id number] 00:00:00 Test Item Value Reference Range Interpretation Comments CHOLESTEROL, TOTAL (test code 157 mg/dL = 2093-3) HDL CHOLESTEROL (test code = 40 mg/dL 5-9) TRIGLYCERIDES (test code = 311 mg/dL 2571-8) LDL-CHOLESTEROL (test code = 80 mg/dL(calc) 37075-4) CHOL/HDLC RATIO (test code = 3.9 (calc) 9830-1) NON HDL CHOLESTEROL (test 117 mg/dL(calc) code = 45143-1) CBC (INCLUDES DIFF/PLT)2020-05-04 00:00:00 Test Item Value Reference Range Interpretation Comments WHITE BLOOD CELL COUNT (test 10.1 Thousand/uL code = 6690-2) RED BLOOD CELL COUNT (test 4.61 Million/uL code = 789-8) HEMOGLOBIN (test code = 14.3 g/dL 718-7) HEMATOCRIT (test code = 42.8 % 4544-3) MCV (test code = 787-2) 92.8 fL MCH (test code = 785-6) 31.0 pg MCHC (test code = 786-4) 33.4 g/dL RDW (test code = 788-0) 12.4 % PLATELET COUNT (test code = 162 Thousand/uL 777-3) MPV (test code = 776-5) 11.7 fL ABSOLUTE NEUTROPHILS (test 7868 cells/uL code = 751-8) ABSOLUTE BAND NEUTROPHILS DNR cells/uL (test code = 59002-7) ABSOLUTE METAMYELOCYTES DNR cells/uL (test code = 69358-7) ABSOLUTE MYELOCYTES (test DNR cells/uL code = 68706-6) ABSOLUTE PROMYELOCYTES (test DNR cells/uL code = 36439-3) ABSOLUTE LYMPHOCYTES (test 1525 cells/uL code = 731-0) ABSOLUTE MONOCYTES (test 485 cells/uL code = 742-7) ABSOLUTE EOSINOPHILS (test 141 cells/uL code = 711-2) ABSOLUTE BASOPHILS (test 81 cells/uL code = 704-7) ABSOLUTE BLASTS (test code = DNR cells/uL 04610-7) ABSOLUTE NUCLEATED RBC (test DNR cells/uL code = 31111-5) NEUTROPHILS (test code = 77.9 % 770-8) BAND NEUTROPHILS (test code DNR % = 764-1) METAMYELOCYTES (test code = DNR % 740-1) MYELOCYTES (test code = DNR % 749-2) PROMYELOCYTES (test code = DNR % 783-1) LYMPHOCYTES (test code = 15.1 % 736-9) REACTIVE LYMPHOCYTES (test DNR % code = 45917-0) MONOCYTES (test code = 4.8 % 5905-5) EOSINOPHILS (test code = 1.4 % 713-8) BASOPHILS (test code = 0.8 % 706-2) BLASTS (test code = 709-6) DNR % NUCLEATED RBC (test code = DNR /100WBC 24914-0) COMMENT(S) (test code = DNR 8251-1) HEMOGLOBIN [id number] 00:00:00 Test Item Value Reference Range Interpretation Comments HEMOGLOBIN A1c (test code = 8.1 %oftotalHgb 4548-4) CULTURE, URINE, [id number] 00:00:00 Test Item Value Reference Range Interpretation Comments CULTURE, URINE, ROUTINE (test code = SEE NOTE 630-4) CULTURE, URINE, [id number] 00:00:00 Test Item Value Reference Range Interpretation Comments CULTURE, URINE, ROUTINE (test code = SEE NOTE 630-4) HEMOGLOBIN [id number] 00:00:00 Test Item Value Reference Range Interpretation Comments HEMOGLOBIN A1c (test code = 8.0 %oftotalHgb 4548-4) BV/VAGINITIS PANEL DNA [id number] 00:00:00 Test Item Value Reference Range Interpretation Comments TRICHOMONAS: (test code = NOT DETECTED 6568-0) GARDNERELLA: (test code = NOT DETECTED 6410-5) JACOB: (test code = 70703-6) NOT DETECTED CULTURE, URINE, [id number] 00:00:00 Test Item Value Reference Range Interpretation Comments CULTURE, URINE, ROUTINE (test code = SEE NOTE 630-4) BV/VAGINITIS PANEL DNA [id number] 00:00:00 Test Item Value Reference Range Interpretation Comments TRICHOMONAS: (test code = NOT DETECTED 6568-0) GARDNERELLA: (test code = NOT DETECTED 6410-5) JACOB: (test code = 15840-8) NOT DETECTED CULTURE, URINE, [id number] 00:00:00 Test Item Value Reference Range Interpretation Comments CULTURE, URINE, ROUTINE (test code = SEE NOTE 630-4) HEMOGLOBIN A1c [ADDED]2019-12-16 00:00:00 Test Item Value Reference Range Interpretation Comments HEMOGLOBIN A1c (test code = 01564) 9.4 % HEMOGLOBIN A1c [ADDED]2019-12-16 00:00:00 Test Item Value Reference Range Interpretation Comments HEMOGLOBIN A1c (test code = 92303) 9.4 % HEMOGLOBIN A1c [ADDED]2019-12-16 00:00:00 Test Item Value Reference Range Interpretation Comments HEMOGLOBIN A1c (test code = 82659) 9.4 % CULTURE, [id number] 00:00:00 Test Item Value Reference Range Interpretation Comments CULTURE, URINE (test SPECIMEN NUMBER: code = 36960) [id number] LIPID PANEL [ADDED]2019-12-16 00:00:00 Test Item Value Reference Range Interpretation Comments CHOLESTEROL (test code = 2210) 151 MG/DL TRIGLYCERIDES (test code = 2232) 188 MG/DL HDL CHOLESTEROL (test code = 2220) 34 MG/DL CALC LDL CHOL (test code = 2237) 89 MG/DL RISK RATIO LDL/HDL (test code = 2.62 RATIO 2238) CULTURE, [id number] 00:00:00 Test Item Value Reference Range Interpretation Comments CULTURE, URINE (test SPECIMEN NUMBER: code = 18998) [id number] LIPID PANEL [ADDED]2019-12-16 00:00:00 Test Item Value Reference Range Interpretation Comments CHOLESTEROL (test code = 2210) 151 MG/DL TRIGLYCERIDES (test code = 2232) 188 MG/DL HDL CHOLESTEROL (test code = 2220) 34 MG/DL CALC LDL CHOL (test code = 2237) 89 MG/DL RISK RATIO LDL/HDL (test code = 2.62 RATIO 2238) CBC W/AUTO [id number] 00:00:00 Test Item Value Reference Range Interpretation Comments WBC (test code = 1001) 7.6 K/UL RBC (test code = 1002) 4.47 M/UL HEMOGLOBIN (test code = 1003) 14.3 G/DL HEMATOCRIT (test code = 1004) 41.1 % MCV (test code = 1005) 91.9 fL MCH (test code = 1006) 32.0 PG MCHC (test code = 1007) 34.8 G/DL RDW (test code = 1038) 12.7 % NEUTROPHILS (test code = 1008) 73.9 % LYMPHOCYTES (test code = 1010) 18.0 % MONOCYTES (test code = 1011) 5.8 % EOSINOPHILS (test code = 1012) 1.0 % BASOPHILS (test code = 1013) 1.3 % PLATELET COUNT (test code = 1015) 149 K/UL CBC W/AUTO [id number] 00:00:00 Test Item Value Reference Range Interpretation Comments WBC (test code = 1001) 7.6 K/UL RBC (test code = 1002) 4.47 M/UL HEMOGLOBIN (test code = 1003) 14.3 G/DL HEMATOCRIT (test code = 1004) 41.1 % MCV (test code = 1005) 91.9 fL MCH (test code = 1006) 32.0 PG MCHC (test code = 1007) 34.8 G/DL RDW (test code = 1038) 12.7 % NEUTROPHILS (test code = 1008) 73.9 % LYMPHOCYTES (test code = 1010) 18.0 % MONOCYTES (test code = 1011) 5.8 % EOSINOPHILS (test code = 1012) 1.0 % BASOPHILS (test code = 1013) 1.3 % PLATELET COUNT (test code = 1015) 149 K/UL CBC W/AUTO [id number] 00:00:00 Test Item Value Reference Range Interpretation Comments WBC (test code = 1001) 7.6 K/UL RBC (test code = 1002) 4.47 M/UL HEMOGLOBIN (test code = 1003) 14.3 G/DL HEMATOCRIT (test code = 1004) 41.1 % MCV (test code = 1005) 91.9 fL MCH (test code = 1006) 32.0 PG MCHC (test code = 1007) 34.8 G/DL RDW (test code = 1038) 12.7 % NEUTROPHILS (test code = 1008) 73.9 % LYMPHOCYTES (test code = 1010) 18.0 % MONOCYTES (test code = 1011) 5.8 % EOSINOPHILS (test code = 1012) 1.0 % BASOPHILS (test code = 1013) 1.3 % PLATELET COUNT (test code = 1015) 149 K/UL CULTURE, URINE, [id number] 00:00:00 Test Item Value Reference Range Interpretation Comments CULTURE, URINE, ROUTINE (test code = SEE NOTE 630-4) CBC (INCLUDES DIFF/PLT)2019-11-09 00:00:00 Test Item Value Reference Range Interpretation Comments WHITE BLOOD CELL COUNT (test 9.1 Thousand/uL code = 6690-2) RED BLOOD CELL COUNT (test 4.83 Million/uL code = 789-8) HEMOGLOBIN (test code = 15.6 g/dL 718-7) HEMATOCRIT (test code = 44.4 % 4544-3) MCV (test code = 787-2) 91.9 fL MCH (test code = 785-6) 32.3 pg MCHC (test code = 786-4) 35.1 g/dL RDW (test code = 788-0) 12.5 % PLATELET COUNT (test code = 170 Thousand/uL 777-3) MPV (test code = 776-5) 14.2 fL ABSOLUTE NEUTROPHILS (test 6689 cells/uL code = 751-8) ABSOLUTE BAND NEUTROPHILS DNR cells/uL (test code = 70513-5) ABSOLUTE METAMYELOCYTES (test DNR cells/uL code = 03648-5) ABSOLUTE MYELOCYTES (test DNR cells/uL code = 31751-1) ABSOLUTE PROMYELOCYTES (test DNR cells/uL code = 69740-1) ABSOLUTE LYMPHOCYTES (test 1738 cells/uL code = 731-0) ABSOLUTE MONOCYTES (test code 491 cells/uL = 742-7) ABSOLUTE EOSINOPHILS (test 82 cells/uL code = 711-2) ABSOLUTE BASOPHILS (test code 100 cells/uL = 704-7) ABSOLUTE BLASTS (test code = DNR cells/uL 39930-2) ABSOLUTE NUCLEATED RBC (test DNR cells/uL code = 62340-5) NEUTROPHILS (test code = 73.5 % 770-8) BAND NEUTROPHILS (test code = DNR % 764-1) METAMYELOCYTES (test code = DNR % 740-1) MYELOCYTES (test code = DNR % 749-2) PROMYELOCYTES (test code = DNR % 783-1) LYMPHOCYTES (test code = 19.1 % 736-9) REACTIVE LYMPHOCYTES (test DNR % code = 22261-7) MONOCYTES (test code = 5.4 % 5905-5) EOSINOPHILS (test code = 0.9 % 713-8) BASOPHILS (test code = 706-2) 1.1 % BLASTS (test code = 709-6) DNR % NUCLEATED RBC (test code = DNR /100WBC 01123-0) COMMENT(S) (test code = DNR 8251-1) COMPREHENSIVE METABOLIC [id number] 00:00:00 Test Item Value Reference Range Interpretation Comments GLUCOSE (test code = 200 mg/dL 2345-7) UREA NITROGEN (BUN) 11 mg/dL (test code = 3094-0) CREATININE (test code = 0.73 mg/dL 0-0) eGFR NON-AFR. MONTENEGRIN 101 mL/min/1.73m2 (test code = 37996-7) eGFR 117 mL/min/1.73m2 (test code = 09524-9) BUN/CREATININE RATIO NOT APPLICABLE (calc) (test code = 3097-3) SODIUM (test code = 139 mmol/L 2951-2) POTASSIUM (test code = 4.0 mmol/L 2823-3) CHLORIDE (test code = 102 mmol/L 5-0) CARBON DIOXIDE (test 29 mmol/L code = 2027-9) CALCIUM (test code = 9.8 mg/dL 90610-1) PROTEIN, TOTAL (test 7.1 g/dL code = 2885-2) ALBUMIN (test code = 4.4 g/dL 1751-7) GLOBULIN (test code = 2.7 g/dL(calc) 59911-9) ALBUMIN/GLOBULIN RATIO 1.6 (calc) (test code = 1759-0) BILIRUBIN, TOTAL (test 0.8 mg/dL code = 1974-2) ALKALINE PHOSPHATASE 87 U/L (test code = 6768-6) AST (test code = 52 U/L 1920-8) ALT (test code = 48 U/L 1742-6) HEMOGLOBIN [id number] 00:00:00 Test Item Value Reference Range Interpretation Comments HEMOGLOBIN A1c (test code = 10.1 %[facility] 4548-4) LIPID [id number] 00:00:00 Test Item Value Reference Range Interpretation Comments CHOLESTEROL, TOTAL (test code 229 mg/dL = 3-3) HDL CHOLESTEROL (test code = 40 mg/dL 2084-9) TRIGLYCERIDES (test code = 409 mg/dL 2571-8) LDL-CHOLESTEROL (test code = mg/dL(calc) 30870-1) CHOL/HDLC RATIO (test code = 5.7 (calc) 9830-1) NON HDL CHOLESTEROL (test 189 mg/dL(calc) code = 23696-1) MICROALBUMIN, RANDOM URINE (W/CREATININE)2019-11-09 00:00:00 Test Item Value Reference Range Interpretation Comments CREATININE, RANDOM URINE (test 206 mg/dL code = 2161-8) ALBUMIN, URINE (test code = 3.8 mg/dL 97734-4) ALBUMIN/CREATININE RATIO, 18 mcg/mgcreat RANDOM URINE (test code = 9318-7) VITAMIN D,25-OH,TOTAL,[id number] 00:00:00 Test Item Value Reference Range Interpretation Comments VITAMIN D,25-OH,TOTAL,IA (test code 17 ng/mL = 1988-3) HEMOGLOBIN [id number] 00:00:00 Test Item Value Reference Range Interpretation Comments HEMOGLOBIN A1c (test code = 8.3 %[facility] 4548-4) COMPREHENSIVE METABOLIC [id number] 00:00:00 Test Item Value Reference Range Interpretation Comments GLUCOSE (test code = 191 mg/dL 2345-7) UREA NITROGEN (BUN) 12 mg/dL (test code = 3094-0) CREATININE (test code = 0.54 mg/dL 2160-0) eGFR NON-AFR. MONTENEGRIN 116 mL/min/1.73m2 (test code = 13293-1) eGFR 134 mL/min/1.73m2 (test code = 02086-8) BUN/CREATININE RATIO NOT APPLICABLE (calc) (test code = 3097-3) SODIUM (test code = 135 mmol/L 2951-2) POTASSIUM (test code = 4.0 mmol/L 2823-3) CHLORIDE (test code = 101 mmol/L 2075-0) CARBON DIOXIDE (test 24 mmol/L code = 2027-9) CALCIUM (test code = 9.8 mg/dL 34586-1) PROTEIN, TOTAL (test 7.3 g/dL code = 2885-2) ALBUMIN (test code = 4.5 g/dL 1751-7) GLOBULIN (test code = 2.8 g/dL(calc) 93555-7) ALBUMIN/GLOBULIN RATIO 1.6 (calc) (test code = 1759-0) BILIRUBIN, TOTAL (test 0.9 mg/dL code = 1974-2) ALKALINE PHOSPHATASE 104 U/L (test code = 6768-6) AST (test code = 56 U/L 1920-8) ALT (test code = 47 U/L 1742-6) LIPID [id number] 00:00:00 Test Item Value Reference Range Interpretation Comments CHOLESTEROL, TOTAL (test code 206 mg/dL = 2093-3) HDL CHOLESTEROL (test code = 39 mg/dL 5-9) TRIGLYCERIDES (test code = 412 mg/dL 2571-8) LDL-CHOLESTEROL (test code = mg/dL(calc) 48369-8) CHOL/HDLC RATIO (test code = 5.3 (calc) 9830-1) NON HDL CHOLESTEROL (test 167 mg/dL(calc) code = 65751-9) CBC (INCLUDES DIFF/PLT)2019-07-15 00:00:00 Test Item Value Reference Range Interpretation Comments WHITE BLOOD CELL COUNT (test 8.7 Thousand/uL code = 6690-2) RED BLOOD CELL COUNT (test 4.72 Million/uL code = 789-8) HEMOGLOBIN (test code = 15.2 g/dL 718-7) HEMATOCRIT (test code = 43.9 % 4544-3) MCV (test code = 787-2) 93.0 fL MCH (test code = 785-6) 32.2 pg MCHC (test code = 786-4) 34.6 g/dL RDW (test code = 788-0) 12.6 % PLATELET COUNT (test code = 154 Thousand/uL 777-3) MPV (test code = 776-5) 13.4 fL ABSOLUTE NEUTROPHILS (test 6290 cells/uL code = 751-8) ABSOLUTE BAND NEUTROPHILS DNR cells/uL (test code = 64791-4) ABSOLUTE METAMYELOCYTES (test DNR cells/uL code = 53287-7) ABSOLUTE MYELOCYTES (test DNR cells/uL code = 04403-5) ABSOLUTE PROMYELOCYTES (test DNR cells/uL code = 07007-6) ABSOLUTE LYMPHOCYTES (test 1636 cells/uL code = 731-0) ABSOLUTE MONOCYTES (test code 531 cells/uL = 742-7) ABSOLUTE EOSINOPHILS (test 157 cells/uL code = 711-2) ABSOLUTE BASOPHILS (test code 87 cells/uL = 704-7) ABSOLUTE BLASTS (test code = DNR cells/uL 83364-1) ABSOLUTE NUCLEATED RBC (test DNR cells/uL code = 31167-8) NEUTROPHILS (test code = 72.3 % 770-8) BAND NEUTROPHILS (test code = DNR % 764-1) METAMYELOCYTES (test code = DNR % 740-1) MYELOCYTES (test code = DNR % 749-2) PROMYELOCYTES (test code = DNR % 783-1) LYMPHOCYTES (test code = 18.8 % 736-9) REACTIVE LYMPHOCYTES (test DNR % code = 84755-5) MONOCYTES (test code = 6.1 % 5905-5) EOSINOPHILS (test code = 1.8 % 713-8) BASOPHILS (test code = 706-2) 1.0 % BLASTS (test code = 709-6) DNR % NUCLEATED RBC (test code = DNR /100WBC 08811-1) COMMENT(S) (test code = DNR 8251-1) [id number] 10:15:00 Test Item Value Reference Range Interpretation Comments GLUBED (test code = GLUBED) 154 mg/dL 60-125 H HEMOGLOBIN [id number] 00:00:00 Test Item Value Reference Range Interpretation Comments HEMOGLOBIN A1c (test code = 9.2 %oftotalHgb 4548-4) COMPREHENSIVE METABOLIC [id number] 00:00:00 Test Item Value Reference Range Interpretation Comments GLUCOSE (test code = 277 mg/dL 2345-7) UREA NITROGEN (BUN) 11 mg/dL (test code = 3094-0) CREATININE (test code = 0.61 mg/dL 2160-0) eGFR NON-AFR. MONTENEGRIN 111 mL/min/1.73m2 (test code = 31592-4) eGFR 129 mL/min/1.73m2 (test code = 75969-8) BUN/CREATININE RATIO NOT APPLICABLE (calc) (test code = 3097-3) SODIUM (test code = 137 mmol/L 2951-2) POTASSIUM (test code = 4.4 mmol/L 2823-3) CHLORIDE (test code = 100 mmol/L 2075-0) CARBON DIOXIDE (test 25 mmol/L code = 2028-9) CALCIUM (test code = 9.7 mg/dL 00868-4) PROTEIN, TOTAL (test 6.8 g/dL code = 2885-2) ALBUMIN (test code = 4.1 g/dL 1751-7) GLOBULIN (test code = 2.7 g/dL(calc) 15257-6) ALBUMIN/GLOBULIN RATIO 1.5 (calc) (test code = 1759-0) BILIRUBIN, TOTAL (test 0.7 mg/dL code = 1975-2) ALKALINE PHOSPHATASE 96 U/L (test code = 6768-6) AST (test code = 64 U/L 1920-8) ALT (test code = 55 U/L 1742-6) LIPID [id number] 00:00:00 Test Item Value Reference Range Interpretation Comments CHOLESTEROL, TOTAL (test code 217 mg/dL = 2093-3) HDL CHOLESTEROL (test code = 39 mg/dL 2085-9) TRIGLYCERIDES (test code = 367 mg/dL 2571-8) LDL-CHOLESTEROL (test code = 126 mg/dL(calc) 18705-6) CHOL/HDLC RATIO (test code = 5.6 (calc) 9830-1) NON HDL CHOLESTEROL (test 178 mg/dL(calc) code = 06522-1) VITAMIN D,25-OH,[id number] 00:00:00 Test Item Value Reference Range Interpretation Comments VITAMIN D,25-OH,TOTAL,IA (test code 19 ng/mL = 1988-3) HELICOBACTER PYLORI, UREA BREATH [id number] 00:00:00 Test Item Value Reference Range Interpretation Comments HELICOBACTER PYLORI, UREA BREATH TEST TNP (test code = 97073-5) UNLABELED SPECIMEN CANCEL TIQ DOCUMENTATION [ADDED]2019-04-05 00:00:00 Test Item Value Reference Range Interpretation Comments REASON (test code = ) NO UNLABELED FORM WAS RECIEVED [id number] 05:54:00 Test Item Value Reference Range Interpretation Comments GLUBED (test code = GLUBED) 216 mg/dL 60-125 H [id number] 20:52:00 Test Item Value Reference Range Interpretation Comments GLUBED (test code = GLUBED) 227 mg/dL 60-125 H [id number] 17:54:00 Test Item Value Reference Range Interpretation Comments GLUBED (test code = GLUBED) 200 mg/dL 60-125 H [id number] 17:09:00 Test Item Value Reference Range Interpretation Comments GLUBED (test code = GLUBED) 200 mg/dL 60-125 H [id number] 12:03:00 Test Item Value Reference Range Interpretation Comments GLUBED (test code = GLUBED) 200 mg/dL 60-125 H [id number] 10:01:00 Test Item Value Reference Range Interpretation Comments GLUBED (test code = GLUBED) 186 mg/dL 60-125 H [id number] 07:38:00 Test Item Value Reference Range Interpretation Comments GLUBED (test code = GLUBED) 181 mg/dL 60-125 H CBC W/AUTO [id number] 00:00:00 Test Item Value Reference Range Interpretation Comments WBC (test code = 1001) 8.7 K/UL RBC (test code = 1002) 4.82 M/UL HEMOGLOBIN (test code = 1003) 15.3 G/DL HEMATOCRIT (test code = 1004) 43.3 % MCV (test code = 1005) 89.8 fL MCH (test code = 1006) 31.7 PG MCHC (test code = 1007) 35.3 G/DL RDW (test code = 1038) 11.8 % NEUTROPHILS (test code = 1008) 73.9 % LYMPHOCYTES (test code = 1010) 18.6 % MONOCYTES (test code = 1011) 5.5 % EOSINOPHILS (test code = 1012) 1.1 % BASOPHILS (test code = 1013) 0.9 % PLATELET COUNT (test code = 1015) 167 K/UL CBC W/AUTO [id number] 00:00:00 Test Item Value Reference Range Interpretation Comments WBC (test code = 1001) 8.7 K/UL RBC (test code = 1002) 4.82 M/UL HEMOGLOBIN (test code = 1003) 15.3 G/DL HEMATOCRIT (test code = 1004) 43.3 % MCV (test code = 1005) 89.8 fL MCH (test code = 1006) 31.7 PG MCHC (test code = 1007) 35.3 G/DL RDW (test code = 1038) 11.8 % NEUTROPHILS (test code = 1008) 73.9 % LYMPHOCYTES (test code = 1010) 18.6 % MONOCYTES (test code = 1011) 5.5 % EOSINOPHILS (test code = 1012) 1.1 % BASOPHILS (test code = 1013) 0.9 % PLATELET COUNT (test code = 1015) 167 K/UL CBC W/AUTO [id number] 00:00:00 Test Item Value Reference Range Interpretation Comments WBC (test code = 1001) 8.7 K/UL RBC (test code = 1002) 4.82 M/UL HEMOGLOBIN (test code = 1003) 15.3 G/DL HEMATOCRIT (test code = 1004) 43.3 % MCV (test code = 1005) 89.8 fL MCH (test code = 1006) 31.7 PG MCHC (test code = 1007) 35.3 G/DL RDW (test code = 1038) 11.8 % NEUTROPHILS (test code = 1008) 73.9 % LYMPHOCYTES (test code = 1010) 18.6 % MONOCYTES (test code = 1011) 5.5 % EOSINOPHILS (test code = 1012) 1.1 % BASOPHILS (test code = 1013) 0.9 % PLATELET COUNT (test code = 1015) 167 K/UL LIPID [id number] 00:00:00 Test Item Value Reference Range Interpretation Comments CHOLESTEROL (test code = 2210) 203 MG/DL TRIGLYCERIDES (test code = 2232) 403 MG/DL HDL CHOLESTEROL (test code = 35 MG/DL 2220) CALC LDL CHOL (test code = 2237) NOTE MG/DL RISK RATIO LDL/HDL (test code = (NOTE) RATIO 2238) LIPID [id number] 00:00:00 Test Item Value Reference Range Interpretation Comments CHOLESTEROL (test code = 2210) 203 MG/DL TRIGLYCERIDES (test code = 2232) 403 MG/DL HDL CHOLESTEROL (test code = 35 MG/DL 2220) CALC LDL CHOL (test code = 2237) NOTE MG/DL RISK RATIO LDL/HDL (test code = (NOTE) RATIO 2238) COMPREHENSIVE METABOLIC [id number] 00:00:00 Test Item Value Reference Range Interpretation Comments GLUCOSE (test code = 2217) 185 MG/DL BUN (test code = 2208) 8 MG/DL CREATININE (test code = 2214) 0.56 MG/DL eGFR AMER. (test code 132 ML/MIN/1.73 = 13130) eGFR NON- AMER. (test 114 ML/MIN/1.73 code = 09118) CALC BUN/CREAT (test code = 14 RATIO 2235) SODIUM (test code = 2231) 138 MEQ/L POTASSIUM (test code = 2228) 4.0 MEQ/L CHLORIDE (test code = 2215) 99 MEQ/L CARBON DIOXIDE (test code = 23 MEQ/L 2205) CALCIUM (test code = 2209) 9.8 MG/DL PROTEIN, TOTAL (test code = 7.2 G/DL 2228) ALBUMIN (test code = 2201) 4.4 G/DL CALC GLOBULIN (test code = 2.8 G/DL 2240) CALC A/G RATIO (test code = 1.6 RATIO 2234) BILIRUBIN, TOTAL (test code = 0.6 MG/DL 2207) ALKALINE PHOSPHATASE (test 101 U/L code = 2204) AST (test code = 2218) 45 U/L ALT (test code = 2219) 40 U/L COMPREHENSIVE METABOLIC [id number] 00:00:00 Test Item Value Reference Range Interpretation Comments GLUCOSE (test code = 2217) 185 MG/DL BUN (test code = 2208) 8 MG/DL CREATININE (test code = 2214) 0.56 MG/DL eGFR AMER. (test code 132 ML/MIN/1.73 = 96616) eGFR NON- AMER. (test 114 ML/MIN/1.73 code = 42595) CALC BUN/CREAT (test code = 14 RATIO 2235) SODIUM (test code = 2231) 138 MEQ/L POTASSIUM (test code = 2228) 4.0 MEQ/L CHLORIDE (test code = 2215) 99 MEQ/L CARBON DIOXIDE (test code = 23 MEQ/L 2205) CALCIUM (test code = 2209) 9.8 MG/DL PROTEIN, TOTAL (test code = 7.2 G/DL 2228) ALBUMIN (test code = 2201) 4.4 G/DL CALC GLOBULIN (test code = 2.8 G/DL 2240) CALC A/G RATIO (test code = 1.6 RATIO 2234) BILIRUBIN, TOTAL (test code = 0.6 MG/DL 7) ALKALINE PHOSPHATASE (test 101 U/L code = 2204) AST (test code = 2218) 45 U/L ALT (test code = 2219) 40 U/L HEMOGLOBIN [id number] 00:00:00 Test Item Value Reference Range Interpretation Comments HEMOGLOBIN A1c (test code = 37574) 8.7 % HEMOGLOBIN [id number] 00:00:00 Test Item Value Reference Range Interpretation Comments HEMOGLOBIN A1c (test code = 52181) 8.7 % HEMOGLOBIN [id number] 00:00:00 Test Item Value Reference Range Interpretation Comments HEMOGLOBIN A1c (test code = 94681) 8.7 % BASIC METABOLIC [id number] 19:19:00 Test Item Value Reference Range Interpretation Comments SODIUM (test code = 140 mmol/L 136-145 N NA) POTASSIUM (test code = 4.4 mmol/L 3.5-5.1 N K) CHLORIDE (test code = 102.0 mmol/L 98-107 N CL) CARBON DIOXIDE (test 26.4 mmol/L 21-32 N code = CO2) GLUCOSE (test code = 212 mg/dL 70-110 H GLU) BLOOD UREA NITROGEN 11 mg/dL 7-18 N (test code = BUN) GLOMERULAR FILTRATION 87.0 >60 Unit o f measure: RATE (test code = GFR) mL/mi n/1.73 n5[place] Range:Healthy Adults >90 mL/min/1.73 m2 For Chronic Kidney Disease: Stage II Mild Decrease i n GFR 60-90 Stage III Moderate Decrea se in GFR 30-59 St age IV Severe Decre ase in GFR 15-29 St age V Kidney Failur e <15 CREATININE (test code 0.73 mg/dL 0.55-1.30 N = CREAT) CALCIUM (test code = 8.8 mg/dL 8.2-10.1 N CA) PAP TEST, THINPREP, [id number] 00:00:00 Test Item Value Reference Range Interpretation Comments SOURCE: (test code = Cervical/Endocervical 8001) SLIDES: (test code = 1 8011) LMP: (test code = NOT GIVEN 8021) SPECIMEN ADEQUACY: (NOTE) (test code = 34967) INTERPRETATION: (test NO EPITHELIAL code = 55544) ABNORMALITY SEE BELOW REVERBERATORY FURNACE OPERATOR: YASMEEN MARCUM(ASCP) (test code = 8101) LOCATION: (test code (NOTE) = 61957) CPT: (test code = (NOTE) 8140) PAP TEST, THINPREP, [id number] 00:00:00 Test Item Value Reference Range Interpretation Comments SOURCE: (test code = Cervical/Endocervical 8001) SLIDES: (test code = 1 8011) LMP: (test code = NOT GIVEN 8021) SPECIMEN ADEQUACY: (NOTE) (test code = 94592) INTERPRETATION: (test NO EPITHELIAL code = 98456) ABNORMALITY SEE BELOW REVERBERATORY FURNACE OPERATOR: YASMEEN MARCUM(ASCP) (test code = 8101) LOCATION: (test code (NOTE) = 99725) CPT: (test code = (NOTE) 8140) HPV HIGH RISK WITH GENOTYPE, [id number] 00:00:00 Test Item Value Reference Range Interpretation Comments HPV HIGH RISK INTERP (test code = NEGATIVE 39030) HPV 16 (test code = 02712) NEGATIVE HPV 18 (test code = 13300) NEGATIVE HPV, HR, OTHER GENOTYPES (test code NEGATIVE = 45774) HPV HIGH RISK WITH GENOTYPE, [id number] 00:00:00 Test Item Value Reference Range Interpretation Comments HPV HIGH RISK INTERP (test code = NEGATIVE 04396) HPV 16 (test code = 08025) NEGATIVE HPV 18 (test code = 54060) NEGATIVE HPV, HR, OTHER GENOTYPES (test code NEGATIVE = 88572) HEMOGLOBIN [id number] 00:00:00 Test Item Value Reference Range Interpretation Comments HEMOGLOBIN A1c (test code = 10312) 8.3 % HEMOGLOBIN [id number] 00:00:00 Test Item Value Reference Range Interpretation Comments HEMOGLOBIN A1c (test code = 38418) 8.3 % HEMOGLOBIN [id number] 00:00:00 Test Item Value Reference Range Interpretation Comments HEMOGLOBIN A1c (test code = 31703) 8.3 % CBC W/AUTO [id number] 00:00:00 Test Item Value Reference Range Interpretation Comments WBC (test code = 1001) 9.4 K/UL RBC (test code = 1002) 4.68 M/UL HEMOGLOBIN (test code = 1003) 15.3 G/DL HEMATOCRIT (test code = 1004) 42.6 % MCV (test code = 1005) 91.0 fL MCH (test code = 1006) 32.7 PG MCHC (test code = 1007) 35.9 G/DL RDW (test code = 1038) 11.6 % NEUTROPHILS (test code = 1008) 73.6 % LYMPHOCYTES (test code = 1010) 16.8 % MONOCYTES (test code = 1011) 6.3 % EOSINOPHILS (test code = 1012) 2.2 % BASOPHILS (test code = 1013) 1.1 % PLATELET COUNT (test code = 1015) 160 K/UL CBC W/AUTO [id number] 00:00:00 Test Item Value Reference Range Interpretation Comments WBC (test code = 1001) 9.4 K/UL RBC (test code = 1002) 4.68 M/UL HEMOGLOBIN (test code = 1003) 15.3 G/DL HEMATOCRIT (test code = 1004) 42.6 % MCV (test code = 1005) 91.0 fL MCH (test code = 1006) 32.7 PG MCHC (test code = 1007) 35.9 G/DL RDW (test code = 1038) 11.6 % NEUTROPHILS (test code = 1008) 73.6 % LYMPHOCYTES (test code = 1010) 16.8 % MONOCYTES (test code = 1011) 6.3 % EOSINOPHILS (test code = 1012) 2.2 % BASOPHILS (test code = 1013) 1.1 % PLATELET COUNT (test code = 1015) 160 K/UL CBC W/AUTO [id number] 00:00:00 Test Item Value Reference Range Interpretation Comments WBC (test code = 1001) 9.4 K/UL RBC (test code = 1002) 4.68 M/UL HEMOGLOBIN (test code = 1003) 15.3 G/DL HEMATOCRIT (test code = 1004) 42.6 % MCV (test code = 1005) 91.0 fL MCH (test code = 1006) 32.7 PG MCHC (test code = 1007) 35.9 G/DL RDW (test code = 1038) 11.6 % NEUTROPHILS (test code = 1008) 73.6 % LYMPHOCYTES (test code = 1010) 16.8 % MONOCYTES (test code = 1011) 6.3 % EOSINOPHILS (test code = 1012) 2.2 % BASOPHILS (test code = 1013) 1.1 % PLATELET COUNT (test code = 1015) 160 K/UL COMPREHENSIVE METABOLIC [id number] 00:00:00 Test Item Value Reference Range Interpretation Comments GLUCOSE (test code = 2217) 278 MG/DL BUN (test code = 2208) 14 MG/DL CREATININE (test code = 2214) 0.70 MG/DL eGFR AMER. (test code 124 ML/MIN/1.73 = 16893) eGFR NON- AMER. (test 107 ML/MIN/1.73 code = 39999) CALC BUN/CREAT (test code = 20 RATIO 2235) SODIUM (test code = 2231) 141 MEQ/L POTASSIUM (test code = 2228) 4.5 MEQ/L CHLORIDE (test code = 2215) 101 MEQ/L CARBON DIOXIDE (test code = 26 MEQ/L 2205) CALCIUM (test code = 2209) 9.6 MG/DL PROTEIN, TOTAL (test code = 7.1 G/DL 222) ALBUMIN (test code = 2201) 4.3 G/DL CALC GLOBULIN (test code = 2.8 G/DL 2240) CALC A/G RATIO (test code = 1.5 RATIO 2234) BILIRUBIN, TOTAL (test code = 0.5 MG/DL 2206) ALKALINE PHOSPHATASE (test 107 U/L code = 2204) AST (test code = 2218) 35 U/L ALT (test code = 2219) 34 U/L COMPREHENSIVE METABOLIC [id number] 00:00:00 Test Item Value Reference Range Interpretation Comments GLUCOSE (test code = 2217) 278 MG/DL BUN (test code = 2208) 14 MG/DL CREATININE (test code = 2214) 0.70 MG/DL eGFR AMER. (test code 124 ML/MIN/1.73 = 39475) eGFR NON- AMER. (test 107 ML/MIN/1.73 code = 19773) CALC BUN/CREAT (test code = 20 RATIO 2235) SODIUM (test code = 2231) 141 MEQ/L POTASSIUM (test code = 2228) 4.5 MEQ/L CHLORIDE (test code = 2215) 101 MEQ/L CARBON DIOXIDE (test code = 26 MEQ/L 2205) CALCIUM (test code = 2209) 9.6 MG/DL PROTEIN, TOTAL (test code = 7.1 G/DL 2228) ALBUMIN (test code = 2201) 4.3 G/DL CALC GLOBULIN (test code = 2.8 G/DL 2240) CALC A/G RATIO (test code = 1.5 RATIO 2234) BILIRUBIN, TOTAL (test code = 0.5 MG/DL 2206) ALKALINE PHOSPHATASE (test 107 U/L code = 2204) AST (test code = 2218) 35 U/L ALT (test code = 2219) 34 U/L LIPID [id number] 00:00:00 Test Item Value Reference Range Interpretation Comments CHOLESTEROL (test code = 2210) 150 MG/DL TRIGLYCERIDES (test code = 2232) 233 MG/DL HDL CHOLESTEROL (test code = 2220) 38 MG/DL CALC LDL CHOL (test code = 2237) 65 MG/DL RISK RATIO LDL/HDL (test code = 1.72 RATIO 2238) LIPID [id number] 00:00:00 Test Item Value Reference Range Interpretation Comments CHOLESTEROL (test code = 2210) 150 MG/DL TRIGLYCERIDES (test code = 2232) 233 MG/DL HDL CHOLESTEROL (test code = 2220) 38 MG/DL CALC LDL CHOL (test code = 2237) 65 MG/DL RISK RATIO LDL/HDL (test code = 1.72 RATIO 2238) HEMOGLOBIN [id number] 00:00:00 Test Item Value Reference Range Interpretation Comments HEMOGLOBIN A1c (test code = 89960) 10.5 % HEMOGLOBIN [id number] 00:00:00 Test Item Value Reference Range Interpretation Comments HEMOGLOBIN A1c (test code = 85862) 10.5 % HEMOGLOBIN [id number] 00:00:00 Test Item Value Reference Range Interpretation Comments HEMOGLOBIN A1c (test code = 48327) 10.5 % CBC W/AUTO [id number] 00:00:00 Test Item Value Reference Range Interpretation Comments WBC (test code = 1001) 8.8 K/UL RBC (test code = 1002) 4.86 M/UL HEMOGLOBIN (test code = 1003) 15.7 G/DL HEMATOCRIT (test code = 1004) 43.8 % MCV (test code = 1005) 90.1 fL MCH (test code = 1006) 32.3 PG MCHC (test code = 1007) 35.8 G/DL RDW (test code = 1038) 12.4 % NEUTROPHILS (test code = 1008) 72.0 % LYMPHOCYTES (test code = 1010) 19.7 % MONOCYTES (test code = 1011) 6.3 % EOSINOPHILS (test code = 1012) 0.9 % BASOPHILS (test code = 1013) 1.1 % PLATELET COUNT (test code = 1015) 168 K/UL CBC W/AUTO [id number] 00:00:00 Test Item Value Reference Range Interpretation Comments WBC (test code = 1001) 8.8 K/UL RBC (test code = 1002) 4.86 M/UL HEMOGLOBIN (test code = 1003) 15.7 G/DL HEMATOCRIT (test code = 1004) 43.8 % MCV (test code = 1005) 90.1 fL MCH (test code = 1006) 32.3 PG MCHC (test code = 1007) 35.8 G/DL RDW (test code = 1038) 12.4 % NEUTROPHILS (test code = 1008) 72.0 % LYMPHOCYTES (test code = 1010) 19.7 % MONOCYTES (test code = 1011) 6.3 % EOSINOPHILS (test code = 1012) 0.9 % BASOPHILS (test code = 1013) 1.1 % PLATELET COUNT (test code = 1015) 168 K/UL CBC W/AUTO [id number] 00:00:00 Test Item Value Reference Range Interpretation Comments WBC (test code = 1001) 8.8 K/UL RBC (test code = 1002) 4.86 M/UL HEMOGLOBIN (test code = 1003) 15.7 G/DL HEMATOCRIT (test code = 1004) 43.8 % MCV (test code = 1005) 90.1 fL MCH (test code = 1006) 32.3 PG MCHC (test code = 1007) 35.8 G/DL RDW (test code = 1038) 12.4 % NEUTROPHILS (test code = 1008) 72.0 % LYMPHOCYTES (test code = 1010) 19.7 % MONOCYTES (test code = 1011) 6.3 % EOSINOPHILS (test code = 1012) 0.9 % BASOPHILS (test code = 1013) 1.1 % PLATELET COUNT (test code = 1015) 168 K/UL COMPREHENSIVE METABOLIC [id number] 00:00:00 Test Item Value Reference Range Interpretation Comments GLUCOSE (test code = 2217) 162 MG/DL BUN (test code = 2208) 10 MG/DL CREATININE (test code = 2214) 0.61 MG/DL eGFR AMER. (test code 130 ML/MIN/1.73 = 89827) eGFR NON- AMER. (test 112 ML/MIN/1.73 code = 37736) CALC BUN/CREAT (test code = 16 RATIO 2235) SODIUM (test code = 2231) 141 MEQ/L POTASSIUM (test code = 2228) 4.0 MEQ/L CHLORIDE (test code = 2215) 100 MEQ/L CARBON DIOXIDE (test code = 27 MEQ/L 220) CALCIUM (test code = 2209) 9.8 MG/DL PROTEIN, TOTAL (test code = 7.2 G/DL 2228) ALBUMIN (test code = 2201) 4.3 G/DL CALC GLOBULIN (test code = 2.9 G/DL 2240) CALC A/G RATIO (test code = 1.5 RATIO 2234) BILIRUBIN, TOTAL (test code = 0.9 MG/DL 2206) ALKALINE PHOSPHATASE (test 81 U/L code = 2204) AST (test code = 2218) 39 U/L ALT (test code = 2219) 32 U/L COMPREHENSIVE METABOLIC [id number] 00:00:00 Test Item Value Reference Range Interpretation Comments GLUCOSE (test code = 2217) 162 MG/DL BUN (test code = 2208) 10 MG/DL CREATININE (test code = 2214) 0.61 MG/DL eGFR AMER. (test code 130 ML/MIN/1.73 = 66396) eGFR NON- AMER. (test 112 ML/MIN/1.73 code = 77331) CALC BUN/CREAT (test code = 16 RATIO 2235) SODIUM (test code = 2231) 141 MEQ/L POTASSIUM (test code = 2228) 4.0 MEQ/L CHLORIDE (test code = 2215) 100 MEQ/L CARBON DIOXIDE (test code = 27 MEQ/L 2205) CALCIUM (test code = 2209) 9.8 MG/DL PROTEIN, TOTAL (test code = 7.2 G/DL 2228) ALBUMIN (test code = 2201) 4.3 G/DL CALC GLOBULIN (test code = 2.9 G/DL 2240) CALC A/G RATIO (test code = 1.5 RATIO 2234) BILIRUBIN, TOTAL (test code = 0.9 MG/DL 2206) ALKALINE PHOSPHATASE (test 81 U/L code = 2204) AST (test code = 2218) 39 U/L ALT (test code = 2219) 32 U/L LIPID [id number] 00:00:00 Test Item Value Reference Range Interpretation Comments CHOLESTEROL (test code = 2210) 217 MG/DL TRIGLYCERIDES (test code = 2232) 407 MG/DL HDL CHOLESTEROL (test code = 38 MG/DL 2220) CALC LDL CHOL (test code = 2237) NOTE MG/DL RISK RATIO LDL/HDL (test code = (NOTE) RATIO 2238) LIPID [id number] 00:00:00 Test Item Value Reference Range Interpretation Comments CHOLESTEROL (test code = 2210) 217 MG/DL TRIGLYCERIDES (test code = 2232) 407 MG/DL HDL CHOLESTEROL (test code = 38 MG/DL 2220) CALC LDL CHOL (test code = 2237) NOTE MG/DL RISK RATIO LDL/HDL (test code = (NOTE) RATIO 2238) [id number] 00:00:00 Test Item Value Reference Range Interpretation Comments TSH, THIRD GENERATION (test code 1.640 UIU/ML = 2821) [id number] 00:00:00 Test Item Value Reference Range Interpretation Comments TSH, THIRD GENERATION (test code 1.640 UIU/ML = 2821) [id number] 00:00:00 Test Item Value Reference Range Interpretation Comments TSH, THIRD GENERATION (test code 1.640 UIU/ML = 2821) MICROALBUMIN/CREATININE, RANDOM AND [id number] 00:00:00 Test Item Value Reference Range Interpretation Comments CREATININE, URINE, CONC. (test 203.7 MG/DL code = 2072) ALBUMIN, URINE, RANDOM (test code 3.6 MG/DL = 14633) CALC ALBUMIN/CREAT, RND (test 18 MG/G code = 14958) MICROALBUMIN/CREATININE, RANDOM AND [id number] 00:00:00 Test Item Value Reference Range Interpretation Comments CREATININE, URINE, CONC. (test 203.7 MG/DL code = 2072) ALBUMIN, URINE, RANDOM (test code 3.6 MG/DL = 37004) CALC ALBUMIN/CREAT, RND (test 18 MG/G code = 73837) HEMOGLOBIN [id number] 00:00:00 Test Item Value Reference Range Interpretation Comments HEMOGLOBIN A1c (test code = 53881) 10.2 % HEMOGLOBIN [id number] 00:00:00 Test Item Value Reference Range Interpretation Comments HEMOGLOBIN A1c (test code = 10048) 10.2 % HEMOGLOBIN [id number] 00:00:00 Test Item Value Reference Range Interpretation Comments HEMOGLOBIN A1c (test code = 04352) 10.2 % CBC W/AUTO [id number] 00:00:00 Test Item Value Reference Range Interpretation Comments WBC (test code = 1001) 10.0 K/UL RBC (test code = 1002) 4.91 M/UL HEMOGLOBIN (test code = 1003) 16.0 G/DL HEMATOCRIT (test code = 1004) 45.3 % MCV (test code = 1005) 92.3 fL MCH (test code = 1006) 32.6 PG MCHC (test code = 1007) 35.3 G/DL RDW (test code = 1038) 11.6 % NEUTROPHILS (test code = 1008) 73.8 % LYMPHOCYTES (test code = 1010) 18.7 % MONOCYTES (test code = 1011) 5.7 % EOSINOPHILS (test code = 1012) 0.8 % BASOPHILS (test code = 1013) 1.0 % PLATELET COUNT (test code = 1015) 154 K/UL CBC W/AUTO [id number] 00:00:00 Test Item Value Reference Range Interpretation Comments WBC (test code = 1001) 10.0 K/UL RBC (test code = 1002) 4.91 M/UL HEMOGLOBIN (test code = 1003) 16.0 G/DL HEMATOCRIT (test code = 1004) 45.3 % MCV (test code = 1005) 92.3 fL MCH (test code = 1006) 32.6 PG MCHC (test code = 1007) 35.3 G/DL RDW (test code = 1038) 11.6 % NEUTROPHILS (test code = 1008) 73.8 % LYMPHOCYTES (test code = 1010) 18.7 % MONOCYTES (test code = 1011) 5.7 % EOSINOPHILS (test code = 1012) 0.8 % BASOPHILS (test code = 1013) 1.0 % PLATELET COUNT (test code = 1015) 154 K/UL CBC W/AUTO [id number] 00:00:00 Test Item Value Reference Range Interpretation Comments WBC (test code = 1001) 10.0 K/UL RBC (test code = 1002) 4.91 M/UL HEMOGLOBIN (test code = 1003) 16.0 G/DL HEMATOCRIT (test code = 1004) 45.3 % MCV (test code = 1005) 92.3 fL MCH (test code = 1006) 32.6 PG MCHC (test code = 1007) 35.3 G/DL RDW (test code = 1038) 11.6 % NEUTROPHILS (test code = 1008) 73.8 % LYMPHOCYTES (test code = 1010) 18.7 % MONOCYTES (test code = 1011) 5.7 % EOSINOPHILS (test code = 1012) 0.8 % BASOPHILS (test code = 1013) 1.0 % PLATELET COUNT (test code = 1015) 154 K/UL COMPREHENSIVE METABOLIC [id number] 00:00:00 Test Item Value Reference Range Interpretation Comments GLUCOSE (test code = 2217) 293 MG/DL BUN (test code = 2208) 10 MG/DL CREATININE (test code = 2214) 0.63 MG/DL eGFR AMER. (test code 129 ML/MIN/1.73 = 36401) eGFR NON- AMER. (test 111 ML/MIN/1.73 code = 54680) CALC BUN/CREAT (test code = 16 RATIO 2235) SODIUM (test code = 2231) 137 MEQ/L POTASSIUM (test code = 2228) 4.3 MEQ/L CHLORIDE (test code = 2215) 99 MEQ/L CARBON DIOXIDE (test code = 23 MEQ/L 2206) CALCIUM (test code = 2209) 9.5 MG/DL PROTEIN, TOTAL (test code = 6.9 G/DL 2228) ALBUMIN (test code = 2201) 4.2 G/DL CALC GLOBULIN (test code = 2.7 G/DL 2240) CALC A/G RATIO (test code = 1.6 RATIO 2234) BILIRUBIN, TOTAL (test code = 0.9 MG/DL 2206) ALKALINE PHOSPHATASE (test 105 U/L code = 2204) AST (test code = 2218) 22 U/L ALT (test code = 2219) 19 U/L COMPREHENSIVE METABOLIC [id number] 00:00:00 Test Item Value Reference Range Interpretation Comments GLUCOSE (test code = 2217) 293 MG/DL BUN (test code = 2208) 10 MG/DL CREATININE (test code = 2214) 0.63 MG/DL eGFR AMER. (test code 129 ML/MIN/1.73 = 34896) eGFR NON- AMER. (test 111 ML/MIN/1.73 code = 57213) CALC BUN/CREAT (test code = 16 RATIO 2235) SODIUM (test code = 2231) 137 MEQ/L POTASSIUM (test code = 2228) 4.3 MEQ/L CHLORIDE (test code = 2215) 99 MEQ/L CARBON DIOXIDE (test code = 23 MEQ/L 2205) CALCIUM (test code = 2209) 9.5 MG/DL PROTEIN, TOTAL (test code = 6.9 G/DL 2228) ALBUMIN (test code = 2201) 4.2 G/DL CALC GLOBULIN (test code = 2.7 G/DL 2239) CALC A/G RATIO (test code = 1.6 RATIO 2234) BILIRUBIN, TOTAL (test code = 0.9 MG/DL 2206) ALKALINE PHOSPHATASE (test 105 U/L code = 2204) AST (test code = 2218) 22 U/L ALT (test code = 2219) 19 U/L LIPID [id number] 00:00:00 Test Item Value Reference Range Interpretation Comments CHOLESTEROL (test code = 2210) 167 MG/DL TRIGLYCERIDES (test code = 2232) 262 MG/DL HDL CHOLESTEROL (test code = 2220) 43 MG/DL CALC LDL CHOL (test code = 2237) 72 MG/DL RISK RATIO LDL/HDL (test code = 1.67 RATIO 2238) LIPID [id number] 00:00:00 Test Item Value Reference Range Interpretation Comments CHOLESTEROL (test code = 2210) 167 MG/DL TRIGLYCERIDES (test code = 2232) 262 MG/DL HDL CHOLESTEROL (test code = 2220) 43 MG/DL CALC LDL CHOL (test code = 2237) 72 MG/DL RISK RATIO LDL/HDL (test code = 1.67 RATIO 2238) CULTURE, [id number] 00:00:00 Test Item Value Reference Range Interpretation Comments CULTURE, URINE (test SPECIMEN NUMBER: code = 96413) [id number] CULTURE, [id number] 00:00:00 Test Item Value Reference Range Interpretation Comments CULTURE, URINE (test SPECIMEN NUMBER: code = 28061) [id number] HEMOGLOBIN [id number] 00:00:00 Test Item Value Reference Range Interpretation Comments HEMOGLOBIN A1c (test code = 97546) 10.1 % HEMOGLOBIN [id number] 00:00:00 Test Item Value Reference Range Interpretation Comments HEMOGLOBIN A1c (test code = 89071) 10.1 % HEMOGLOBIN [id number] 00:00:00 Test Item Value Reference Range Interpretation Comments HEMOGLOBIN A1c (test code = 83800) 10.1 % CBC W/AUTO [id number] 00:00:00 Test Item Value Reference Range Interpretation Comments WBC (test code = 1001) 9.4 K/UL RBC (test code = 1002) 5.29 M/UL HEMOGLOBIN (test code = 1003) 16.9 G/DL HEMATOCRIT (test code = 1004) 48.1 % MCV (test code = 1005) 90.9 fL MCH (test code = 1006) 31.9 PG MCHC (test code = 1007) 35.1 G/DL RDW (test code = 1038) 11.9 % NEUTROPHILS (test code = 1008) 68.7 % LYMPHOCYTES (test code = 1010) 22.6 % MONOCYTES (test code = 1011) 6.3 % EOSINOPHILS (test code = 1012) 1.1 % BASOPHILS (test code = 1013) 1.3 % PLATELET COUNT (test code = 1015) 170 K/UL CBC W/AUTO [id number] 00:00:00 Test Item Value Reference Range Interpretation Comments WBC (test code = 1001) 9.4 K/UL RBC (test code = 1002) 5.29 M/UL HEMOGLOBIN (test code = 1003) 16.9 G/DL HEMATOCRIT (test code = 1004) 48.1 % MCV (test code = 1005) 90.9 fL MCH (test code = 1006) 31.9 PG MCHC (test code = 1007) 35.1 G/DL RDW (test code = 1038) 11.9 % NEUTROPHILS (test code = 1008) 68.7 % LYMPHOCYTES (test code = 1010) 22.6 % MONOCYTES (test code = 1011) 6.3 % EOSINOPHILS (test code = 1012) 1.1 % BASOPHILS (test code = 1013) 1.3 % PLATELET COUNT (test code = 1015) 170 K/UL CBC W/AUTO [id number] 00:00:00 Test Item Value Reference Range Interpretation Comments WBC (test code = 1001) 9.4 K/UL RBC (test code = 1002) 5.29 M/UL HEMOGLOBIN (test code = 1003) 16.9 G/DL HEMATOCRIT (test code = 1004) 48.1 % MCV (test code = 1005) 90.9 fL MCH (test code = 1006) 31.9 PG MCHC (test code = 1007) 35.1 G/DL RDW (test code = 1038) 11.9 % NEUTROPHILS (test code = 1008) 68.7 % LYMPHOCYTES (test code = 1010) 22.6 % MONOCYTES (test code = 1011) 6.3 % EOSINOPHILS (test code = 1012) 1.1 % BASOPHILS (test code = 1013) 1.3 % PLATELET COUNT (test code = 1015) 170 K/UL COMPREHENSIVE METABOLIC [id number] 00:00:00 Test Item Value Reference Range Interpretation Comments GLUCOSE (test code = 2217) 273 MG/DL BUN (test code = 2208) 13 MG/DL CREATININE (test code = 2214) 0.63 MG/DL eGFR AMER. (test code 129 ML/MIN/1.73 = 55804) eGFR NON- AMER. (test 111 ML/MIN/1.73 code = 82397) CALC BUN/CREAT (test code = 21 RATIO 2235) SODIUM (test code = 2231) 136 MEQ/L POTASSIUM (test code = 2228) 4.4 MEQ/L CHLORIDE (test code = 2215) 95 MEQ/L CARBON DIOXIDE (test code = 25 MEQ/L 2205) CALCIUM (test code = 2209) 10.4 MG/DL PROTEIN, TOTAL (test code = 7.6 G/DL 222) ALBUMIN (test code = 2201) 4.7 G/DL CALC GLOBULIN (test code = 2.9 G/DL 2240) CALC A/G RATIO (test code = 1.6 RATIO 2234) BILIRUBIN, TOTAL (test code = 1.4 MG/DL 220) ALKALINE PHOSPHATASE (test 93 U/L code = 2204) AST (test code = 2218) 29 U/L ALT (test code = 2219) 25 U/L COMPREHENSIVE METABOLIC [id number] 00:00:00 Test Item Value Reference Range Interpretation Comments GLUCOSE (test code = 2217) 273 MG/DL BUN (test code = 2208) 13 MG/DL CREATININE (test code = 2214) 0.63 MG/DL eGFR AMER. (test code 129 ML/MIN/1.73 = 54661) eGFR NON- AMER. (test 111 ML/MIN/1.73 code = 21087) CALC BUN/CREAT (test code = 21 RATIO 2235) SODIUM (test code = 2231) 136 MEQ/L POTASSIUM (test code = 2228) 4.4 MEQ/L CHLORIDE (test code = 2215) 95 MEQ/L CARBON DIOXIDE (test code = 25 MEQ/L 220) CALCIUM (test code = 2209) 10.4 MG/DL PROTEIN, TOTAL (test code = 7.6 G/DL 2228) ALBUMIN (test code = 2201) 4.7 G/DL CALC GLOBULIN (test code = 2.9 G/DL 2240) CALC A/G RATIO (test code = 1.6 RATIO 2234) BILIRUBIN, TOTAL (test code = 1.4 MG/DL 2206) ALKALINE PHOSPHATASE (test 93 U/L code = 2204) AST (test code = 2218) 29 U/L ALT (test code = 2219) 25 U/L LIPID [id number] 00:00:00 Test Item Value Reference Range Interpretation Comments CHOLESTEROL (test code = 2210) 197 MG/DL TRIGLYCERIDES (test code = 2232) 504 MG/DL HDL CHOLESTEROL (test code = 34 MG/DL 2220) CALC LDL CHOL (test code = 2237) NOTE MG/DL RISK RATIO LDL/HDL (test code = (NOTE) RATIO 2238) LIPID [id number] 00:00:00 Test Item Value Reference Range Interpretation Comments CHOLESTEROL (test code = 2210) 197 MG/DL TRIGLYCERIDES (test code = 2232) 504 MG/DL HDL CHOLESTEROL (test code = 34 MG/DL 2220) CALC LDL CHOL (test code = 2237) NOTE MG/DL RISK RATIO LDL/HDL (test code = (NOTE) RATIO 2238) VITAMIN D, 25 OH [ADDED][id number] 00:00:00 Test Item Value Reference Range Interpretation Comments VITAMIN D, 25 OH (test code = 4958) 16 NG/ML VITAMIN D, 25 OH [ADDED][id number] 00:00:00 Test Item Value Reference Range Interpretation Comments VITAMIN D, 25 OH (test code = 4958) 16 NG/ML CBC W/AUTO [id number] 00:00:00 Test Item Value Reference Range Interpretation Comments WBC (test code = 1001) 9.5 K/UL RBC (test code = 1002) 4.98 M/UL HEMOGLOBIN (test code = 1003) 16.1 G/DL HEMATOCRIT (test code = 1004) 45.6 % MCV (test code = 1005) 91.6 fL MCH (test code = 1006) 32.3 PG MCHC (test code = 1007) 35.3 G/DL RDW (test code = 1038) 12.0 % NEUTROPHILS (test code = 1008) 71.0 % LYMPHOCYTES (test code = 1010) 21.0 % MONOCYTES (test code = 1011) 6.6 % EOSINOPHILS (test code = 1012) 0.7 % BASOPHILS (test code = 1013) 0.7 % PLATELET COUNT (test code = 1015) 164 K/UL CBC W/AUTO [id number] 00:00:00 Test Item Value Reference Range Interpretation Comments WBC (test code = 1001) 9.5 K/UL RBC (test code = 1002) 4.98 M/UL HEMOGLOBIN (test code = 1003) 16.1 G/DL HEMATOCRIT (test code = 1004) 45.6 % MCV (test code = 1005) 91.6 fL MCH (test code = 1006) 32.3 PG MCHC (test code = 1007) 35.3 G/DL RDW (test code = 1038) 12.0 % NEUTROPHILS (test code = 1008) 71.0 % LYMPHOCYTES (test code = 1010) 21.0 % MONOCYTES (test code = 1011) 6.6 % EOSINOPHILS (test code = 1012) 0.7 % BASOPHILS (test code = 1013) 0.7 % PLATELET COUNT (test code = 1015) 164 K/UL CBC W/AUTO [id number] 00:00:00 Test Item Value Reference Range Interpretation Comments WBC (test code = 1001) 9.5 K/UL RBC (test code = 1002) 4.98 M/UL HEMOGLOBIN (test code = 1003) 16.1 G/DL HEMATOCRIT (test code = 1004) 45.6 % MCV (test code = 1005) 91.6 fL MCH (test code = 1006) 32.3 PG MCHC (test code = 1007) 35.3 G/DL RDW (test code = 1038) 12.0 % NEUTROPHILS (test code = 1008) 71.0 % LYMPHOCYTES (test code = 1010) 21.0 % MONOCYTES (test code = 1011) 6.6 % EOSINOPHILS (test code = 1012) 0.7 % BASOPHILS (test code = 1013) 0.7 % PLATELET COUNT (test code = 1015) 164 K/UL COMPREHENSIVE METABOLIC [id number] 00:00:00 Test Item Value Reference Range Interpretation Comments GLUCOSE (test code = 2217) 263 MG/DL BUN (test code = 2208) 10 MG/DL CREATININE (test code = 2214) 0.58 MG/DL eGFR AMER. (test code 133 ML/MIN/1.73 = 63095) eGFR NON- AMER. (test 114 ML/MIN/1.73 code = 29617) CALC BUN/CREAT (test code = 17 RATIO 2235) SODIUM (test code = 2231) 137 MEQ/L POTASSIUM (test code = 2228) 4.1 MEQ/L CHLORIDE (test code = 2215) 98 MEQ/L CARBON DIOXIDE (test code = 22 MEQ/L 2205) CALCIUM (test code = 2209) 9.9 MG/DL PROTEIN, TOTAL (test code = 7.2 G/DL 2228) ALBUMIN (test code = 2201) 4.4 G/DL CALC GLOBULIN (test code = 2.8 G/DL 2240) CALC A/G RATIO (test code = 1.6 RATIO 2234) BILIRUBIN, TOTAL (test code = 1.2 MG/DL 220) ALKALINE PHOSPHATASE (test 107 U/L code = 2204) AST (test code = 2218) 26 U/L ALT (test code = 2219) 31 U/L COMPREHENSIVE METABOLIC [id number] 00:00:00 Test Item Value Reference Range Interpretation Comments GLUCOSE (test code = 2217) 263 MG/DL BUN (test code = 2208) 10 MG/DL CREATININE (test code = 2214) 0.58 MG/DL eGFR AMER. (test code 133 ML/MIN/1.73 = 49917) eGFR NON- AMER. (test 114 ML/MIN/1.73 code = 50080) CALC BUN/CREAT (test code = 17 RATIO 2235) SODIUM (test code = 2231) 137 MEQ/L POTASSIUM (test code = 2228) 4.1 MEQ/L CHLORIDE (test code = 2215) 98 MEQ/L CARBON DIOXIDE (test code = 22 MEQ/L 2205) CALCIUM (test code = 2209) 9.9 MG/DL PROTEIN, TOTAL (test code = 7.2 G/DL 2228) ALBUMIN (test code = 2201) 4.4 G/DL CALC GLOBULIN (test code = 2.8 G/DL 2240) CALC A/G RATIO (test code = 1.6 RATIO 2234) BILIRUBIN, TOTAL (test code = 1.2 MG/DL 2206) ALKALINE PHOSPHATASE (test 107 U/L code = 2204) AST (test code = 2218) 26 U/L ALT (test code = 2219) 31 U/L LIPID [id number] 00:00:00 Test Item Value Reference Range Interpretation Comments CHOLESTEROL (test code = 2210) 210 MG/DL TRIGLYCERIDES (test code = 2232) 398 MG/DL HDL CHOLESTEROL (test code = 2220) 39 MG/DL CALC LDL CHOL (test code = 2237) 91 MG/DL RISK RATIO LDL/HDL (test code = 2.34 RATIO 2238) LIPID [id number] 00:00:00 Test Item Value Reference Range Interpretation Comments CHOLESTEROL (test code = 2210) 210 MG/DL TRIGLYCERIDES (test code = 2232) 398 MG/DL HDL CHOLESTEROL (test code = 2220) 39 MG/DL CALC LDL CHOL (test code = 2237) 91 MG/DL RISK RATIO LDL/HDL (test code = 2.34 RATIO 2238) [id number] 00:00:00 Test Item Value Reference Range Interpretation Comments TSH (test code = 2821) 2.13 UIU/ML [id number] 00:00:00 Test Item Value Reference Range Interpretation Comments TSH (test code = 2821) 2.13 UIU/ML [id number] 00:00:00 Test Item Value Reference Range Interpretation Comments TSH (test code = 2821) 2.13 UIU/ML HEMOGLOBIN [id number] 00:00:00 Test Item Value Reference Range Interpretation Comments HEMOGLOBIN A1c (test code = 70300) 11.0 % HEMOGLOBIN [id number] 00:00:00 Test Item Value Reference Range Interpretation Comments HEMOGLOBIN A1c (test code = 83357) 11.0 % HEMOGLOBIN [id number] 00:00:00 Test Item Value Reference Range Interpretation Comments HEMOGLOBIN A1c (test code = 11118) 11.0 % Notes Date/Time Note Provider Source 2019-06-15 07:55:00-00:00 [id number] [address] [address] PATIENT NAME: SELENA SPRING ADMIT DATE: 07/23 ACCOUNT NO: [id number] ROOM NO: AGE: 43 REPORT TYPE: OPERATIVE REPORT SEX: F ADMITTING PHYSICIAN: ATTENDING PHYSICIAN:Ele Westbrook MD OPERATION DATE: 06/14/2019 PREOPERATIVE DIAGNOSIS: Symptomatic hardware, le ft ankle. POSTOPERATIVE DIAGNOSIS: Symptomatic hardware, l eft ankle. PROCEDURES PERFORMED: Hardware removal, left ank le. SURGEON: Ele Westbrook MD MANAGER PRINTING: Francisco Javier Cast, OPA-C/LSA ANESTHESIA: LMA and local INDICATIONS: Ms. Spring is a 43-year-old female with history of diabetes mellitus and obesity, who lee stained a left ankle fracture approximately 6 months ago. She has been doing well. However, she has n oted a prominence over the outside part of her ankle. R adiographs show the fractures appeared to be healed with alignment maintained. However, the syndesmo tic screw has backed out a little bit. We discussed the findings with the p atient. We discussed the concerns about possible breakdown of the skin and therefore discussed hardware removal. We discussed surgery with her including the risks and benefits. She understood them and desired to move forward. PROCEDURE IN DETAIL: After informed consent was obtained, the patient was brought back to main operating room and underwent a laryngeal mask anesthetic. Once the anesthesia was assured, the lef t lower extremity was then prepped and draped free in usual sterile fashion. A calf tourniquet was applied and preset at 250 mmHg. The patient received 2 grams of cef azolin. The foot, ankle, and leg were then exsanguinated with an Esmarch bandage and tourniquet was inflated to 250 mmHg. The skin wa s incised over the lateral aspect of the ankle and diss ection was carried down to expose the screw and the central portion of the plate. We were able to re move the screw without difficulty. We then irrigated out the wound with copious amounts of normal saline. We then closed the wound in layers with sutures of 2-0 Vicryl, 3-0 Vicryl, and 4-0 Prolene. The wound was i nfiltrated with approximately 10 mL of 0.5% ropivacaine plain. A sterile dry co mpressive dressing was applied and the tourniquet was deflated after approximately 15 m inutes. The toes pinked up nicely. The patient was subsequently awakened, e xtubated, and taken to the postanesthesia care unit in stable condition. She tolerated the procedure well. There were no apparent complications. Estimated blood loss was less than 25 PATIENT NAME: SELENA SPRING ACCOUNT #: [id number]. Dictated By: Ele Westbrook MD WT: OP:SHONNA/SHAHLA/VERÓNICA Conf#: [id number]/DID#: [id number] Authenticated and Edited by Ele crane MD On 06/17/19 7:53:33 AM Electronically Signed by Ele Westbrook MD o n 06/17/19 at 0755 PATIENT NAME: SELENA SRPING ACCOUNT #: [id number] 2019-02-02 07:28:00-00:00 [facility] ([facility]) Clinical Note REPORT#:[id number] REPORT STATUS: Signed DATE:02/02/19 TIME: 727 PATIENT: SELENA SPRING UNIT #: [id number] ROOM/BED: [facility] : 75 AGE: 43 SEX: F ATTEND: Christel Westbrook MD ADM AUTHOR: Ele Westbrook MD * ALL edits or amendments must be made on the el [employer]/computer document * Clinical Note Note: Patinet doing well. Pain is Ok. OF SCIENTIST PROPAGATOR this morn ing Vital Signs: Date Time Temp Pulse Resp B/P B/P Pulse O2 O2 F low FiO2 Mean Ox Delivery Rate 02/02 721 97.9 91 16 107/73 84.0 99 Nasal cannula 05/01 0533 97.2 86 20 110/65 82 99 Nasal cannula 02/02 0210 92 Nasal 3.670084 32 cannula 02/01 2246 97.5 86 20 132/73 97 95 Nasal cannula 02/01 2134 94 Nasal 3.016173 32 cannula 02/01 2030 Nasal 3.223671 cannula 02/01 1937 97.5 84 18 129/73 96 97 Nasal cannula 02/01 1635 96.8 94 18 115/81 92.2 100 Nasal 3.0 66595 cannula 02/01 1130 Nasal 3.949583 cannula 02/01 1120 100 Nasal 3.273551 32 cannula 02/01 1109 96.4 121 18 138/90 106.2 99 Nasal 3. 014218 cannula 02/01 1044 Nasal 3.931257 cannula 02/01 1031 97.4 112 18 145/81 98 Nasal 3.823092 cannula 02/01 1016 112 19 146/88 98 Nasal 3.234385 cannula 02/01 1000 106 22 148/83 100 Simple 8.043023 mask 02/01 0952 Simple 8.385757 mask 02/01 0946 97.1 104 20 154/92 100 Simple 8.0000 00 mask Exam: splint intact and no drainage splint loosened NV intact A: s/p ORIf of Bimalleolar ankle fracture-stable ortho P: PT Pain control with po meds Lovenox Dc home after PT if Pain Ok at 0730 RPT #:[id number] END OF REPORT 2019-02-02 07:18:00-00:00 [facility] ([facility]) Pain Management Progress Note REPORT#:[id number] REPORT STATUS: Signed DATE:02/02/19 TIME: 717 PATIENT: SELENA SPRING UNIT #: [id number] ROOM/BED: [address] : [address] AGE: 43 SEX: F ATTEND: Christel Westbrook MD ADM AUTHOR: Marni Meeks ROCKET ENGINE MECHANIC * ALL edits or amendments must be made on the el [employer]/computer document * Subjective Chief Complaint: L ANKLE PAIN S/P ORIF Comments: Last Documented: Result Date Time Pulse Ox 99 02/02 0533 B/P 110/65 02/02 0533 B/P Mean 82 02/02 0533 O2 Delivery Nasal cannula 02/02 533 Temp 36.2 02/02 533 Pulse 86 02/02 0533 Resp 20 02/02 0533 FiO2 32 / 0210 O2 Flow Rate 3.899794 05/ 0210 History: PMH: IDDM POD: 1 APMS RN: Roxane CROSS RN Medication: DILAUDID Pump settings: BASAL RATE: O DOSE: 0.2MG DELAY: 8 MIN SCIENTIST PROPAGATOR USE: FREQUENT Activity status: PT LYING IN BED TALKING ON SULEMA NE. AT BEDSIDE. Pain: STATES HAS VERY LITTLE PAIN Physical Exam: VAS: 1 LOS: 1 Resp Quality: 1 Side Effects: NONE PT APPEARS COMFORTABLE AT THIS TIME. Plan: SCIENTIST PROPAGATOR TO BE DC'D BY FLOOR NURSE THIS AM PT TO TRANSITION TO ORAL PAIN MEDS ANTICIPATE D/C HOME TODAY. at 0719 RPT #:[id number] END OF REPORT 2019-02-02 07:18:00-00:00 [facility] ([facility]) Pain Management Progress Note REPORT#:[id number] REPORT STATUS: Signed DATE:02/02/19 TIME: 717 PATIENT: SELENA SPRING UNIT #: [id number] ROOM/BED: : 75 AGE: 43 SEX: F ATTEND: Christel Westbrook MD ADM AUTHOR: Marni Meeks NP * ALL edits or amendments must be made on the [employer]/computer document * Marni Meeks 02/02/19 0718: Subjective Chief Complaint: L ANKLE PAIN S/P ORIF Comments: Last Documented: Result Date Time Pulse Ox 99 02/02 0533 B/P 110/65 02/02 0533 B/P Mean 82 02/02 0533 O2 Delivery Nasal cannula 02/02 533 Temp 36.2 02/02 0533 Pulse 86 02/02 0533 Resp 20 02/02 0533 FiO2 32 / 0210 O2 Flow Rate 3.342760 0501 0210 History: PMH: IDDM POD: 1 APMS RN: Roxane CROSS professor of literature: DILAUDID Pump settings: BASAL RATE: O DOSE: 0.2MG DELAY: 8 MIN SCIENTIST PROPAGATOR USE: FREQUENT Activity status: PT LYING IN BED TALKING ON SULEMA NE. AT BEDSIDE. Pain: STATES HAS VERY LITTLE PAIN Physical Exam: VAS: 1 LOS: 1 Resp Quality: 1 Side Effects: NONE PT APPEARS COMFORTABLE AT THIS TIME. Plan: SCIENTIST PROPAGATOR TO BE DC'D BY FLOOR NURSE THIS AM PT TO TRANSITION TO ORAL PAIN MEDS ANTICIPATE D/C HOME TODAY. Tevin Slaughter 02/21/19 0926: Subjective Comments: Agree with above assessment at 0719 RPT #:[id number] END OF REPORT 2019-02-02 07:18:00-00:00 [facility] ([facility]) Pain Management Progress Note REPORT#:[id number] REPORT STATUS: Signed DATE:02/02/19 TIME: 717 PATIENT: SELENA SPRING UNIT #: [id number] ROOM/BED: : 75 AGE: 43 SEX: F ATTEND: Christel Westbrook MD ADM AUTHOR: Marni Meeks ROCKET ENGINE MECHANIC * ALL edits or amendments must be made on the [employer]/computer document * Marni Meeks 02/02/19 0718: Subjective Chief Complaint: L ANKLE PAIN S/P ORIF Comments: Last Documented: Result Date Time Pulse Ox 99 02/02 533 B/P 110/65 02/02 533 B/P Mean 82 02/02 533 O2 Delivery Nasal cannula 02/02 533 Temp 36.2 02/02 533 Pulse 86 02/02 533 Resp 20 02/02 533 FiO2 32 02/02 0210 O2 Flow Rate 3.206921 02/02 0210 History: PMH: IDDM POD: 1 APMS RN: Roxane CROSS RN Medication: DILAUDID Pump settings: BASAL RATE: O DOSE: 0.2MG DELAY: 8 MIN SCIENTIST PROPAGATOR USE: FREQUENT Activity status: PT LYING IN BED TALKING ON SULEMA NE. AT BEDSIDE. Pain: STATES HAS VERY LITTLE PAIN Physical Exam: VAS: 1 LOS: 1 Resp Quality: 1 Side Effects: NONE PT APPEARS COMFORTABLE AT THIS TIME. Plan: SCIENTIST PROPAGATOR TO BE DC'D BY FLOOR NURSE THIS AM PT TO TRANSITION TO ORAL PAIN MEDS ANTICIPATE D/C HOME TODAY. Tevin SlaughterJahaira 02/21/19 0926: Subjective Comments: Agree with above assessment at 0719 RPT #:[id number] END OF REPORT 2019-02-02 07:18:00-00:00 [facility] ([facility]) Pain Management Progress Note REPORT#:[id number] REPORT STATUS: Signed DATE:02/02/19 TIME: 717 PATIENT: SELENA SPRING UNIT #: [id number] ROOM/BED: : 75 AGE: 43 SEX: F ATTEND: Christel Westbrook MD ADM AUTHOR: Marni Meeks NP * ALL edits or amendments must be made on the [employer]/computer document * Marni Meeks 02/02/19 0718: Subjective Chief Complaint: L ANKLE PAIN S/P ORIF Comments: Last Documented: Result Date Time Pulse Ox 99 02/02 533 B/P 110/65 02/02 533 B/P Mean 82 02/02 533 O2 Delivery Nasal cannula 02/02 533 Temp 36.2 02/02 05 Pulse 86 02/02 0533 Resp 20 02/02 533 FiO2 32 02/02 0210 O2 Flow Rate 3.993905 02/02 0210 History: PMH: IDDM POD: 1 APMS RN: Roxane CROSS RN Medication: DILAUDID Pump settings: BASAL RATE: O DOSE: 0.2MG DELAY: 8 MIN SCIENTIST PROPAGATOR USE: FREQUENT Activity status: PT LYING IN BED TALKING ON SULEMA NE. AT BEDSIDE. Pain: STATES HAS VERY LITTLE PAIN Physical Exam: VAS: 1 LOS: 1 Resp Quality: 1 Side Effects: NONE PT APPEARS COMFORTABLE AT THIS TIME. Plan: SCIENTIST PROPAGATOR TO BE DC'D BY FLOOR NURSE THIS AM PT TO TRANSITION TO ORAL PAIN MEDS ANTICIPATE D/C HOME TODAY. Tevin Slaughter 02/21/19 0926: Subjective Comments: Agree with above assessment at 0719 Electronically Signed by Tevin Slaughter MD on at 0928 RPT #:[id number] END OF REPORT 2019-02-01 10:15:00-00:00 [id number] [place] [address] PATIENT NAME: SELENA SPRING ADMIT DATE: ACCOUNT NO: [id number] ROOM NO: AGE: 43 REPORT TYPE: OPERATIVE REPORT SEX: F ADMITTING PHYSICIAN: ATTENDING PHYSICIAN:Ele Westbrook MD OPERATION DATE: 02/01/2019 PREOPERATIVE DIAGNOSIS: Left bimalleolar ankle f racture. POSTOPERATIVE DIAGNOSES: Left bimalleolar ankle fracture and talar dome osteochondral fracture, medial talar dome. PROCEDURES PERFORMED: 1. Open reduction and internal fixation of left bimalleolar ankle fracture. 2. Open treatment of left medial talar dome oste ochondral fracture. SURGEON: Ele Westbrook MD MANAGER PRINTING: None ANESTHESIA: LMA and local INDICATIONS: Ms. Spring is a 43-year-old female with a history of diabetes mellitus, who sustained a twisting injury to her left ankle approximately 4 weeks ago. She was attempted to perform surgery because of insurance issues, surgery was delayed. The patient then was eventu ally cleared and we discussed the findings with the patient. We discussed the option of treatment with her. We discussed the risks and b enefits of surgery with the patient. She understood the risks and benefits and desired to go forward . PROCEDURE IN DETAIL: After informed consent was obtained, the patient was brought back to main operating room, underwent a laryngeal mask anesthetic. Once the anesthesia assured, the patient received 2 grams of cefazolin. A bump was placed underneath the left hip. A thigh tour niquet was applied and preset at 250 mmHg. The left lower extremity was then p repped and draped in usual sterile fashion. The foot, ankle, and leg were then exsanguinated with an Esmarch bandage and tourniquet was inflated to 250 mmHg. An incision was made over the lateral aspect of the ankle and dissection was carried d own to the fibula. We exposed the fibula and the fracture site through subperiosteal dissection. We then were able to open up the fracture site with an osteot ome and clear out debris. We also identified the lateral aspect of th e joint and cleared out debris from it as well. We then were able to irrigate out the w ound and joint with copious amounts of normal saline. We then drilled the ca ncellous surfaces to get more bleeding vascular channels into the fracture sit e. We then placed a 6-hole [employer] one-third tubular plate that pre liminarily on to the lateral aspect of PATIENT NAME: SELENA SPRING ACCOUNT #: [id number] the fibula. We made attempts of reduction, but f elt that this was difficult given the alignment of the medial side. Therefor e, we removed the plate and screw, irrigated out the wound and place d a dressing over it. We then directed our attention to the medial aspect of the ankle. On the medial side, we made an incision over the medial malleolus and dissection was carried down. Thickened periosteum was incis ed and a subperiosteal dissection was used to expose the medial metaphy sis as well as the extended medial malleolus fracture. We then were able to clear out debris and then utilized an osteotome to free up the fra cture and visualized the medial aspect of the joint. In doing this, we cleared out debr is and also identified an osteochondral fracture of th e medial talar dome with some loose bodies, which we were able to remove. We then curetted ou t the base to get to bleeding vascular channels here. We then curetted out the surfaces of the fracture and then irrigated out the wound with copious amounts of normal saline. We then were able to reduce the fracture and preliminarily pi nned it with two K-wires, because of some loss of the bone at the fracture site itself there was some gapping but overall the alig nment looked good. Therefore, we fashioned a 5-hole Synthes one-third tubular pl ate in a buttress fashion over the medial aspect of the tibia and the fracture. A combination of loc brisa and nonlocking technique was utilized and overall we had good stability. We then packed some allograft cancellous croutons into the fracture maddie th anteriorly and posteriorly. We then closed the deep soft tissues with 2-0 PDS, the s kin with 3-0 Vicryl, 4-0 Prolene, and herminia. We then directed our attention to the la teral aspect of the ankle now that the medial side was reduced and stable. We w ere able to fashion the 6-hole Synthes tubular plate over the lateral aspect of the fib jacqueline. There was actually improved approximation of the bone and the align ment looked good under fluoroscopic imaging. We utilized the combinatio n of locking and nonlocking technique to stabilize the fracture. Bec ause there was some instability of the syndesmosis, we chose to place a syndesmotic scr ew in a non-lag fashion while holding the ankle in maximal dorsiflexio n. Once this was done, we verified the position of plate and screws under fluoroscopic imaging. We then closed the wound in layers with sutures of 2-0 PDS, 3-0 Zacarias ryl, and 4-0 Prolene and herminia. The wounds were infiltrated with total of 25 mL of 0.5% ropivacaine plain. A sterile dry compressive dressing was ap plied including a well-padded posterior splint. The tourniquet was def lated after approximately 100 minutes. The toes pinked up nicely. The patient was awake ava, extubated, and taken to the postanesthesia care unit in stable condition . She tolerated the procedure well. There were no apparent complications. ESTIMATED BLOOD LOSS: Less than 25 mL. Dictated By: Ele Westbrook MD WT: OP:SHONNA/SHAHLA/VERÓNICA Conf#: [id number]/DID#: [id number] Authenticated and Edited by Ele crane MD On 02/10/19 8:32:32 AM PATIENT NAME: TIKI SPRINGCY HO ACCOUNT #: [id number] Electronically Signed by Ele Westbrook MD o n 02/10/19 at 0834 PATIENT NAME: SELENA SPRING ACCOUNT #: [id number] 2019-02-01 09:42:00-00:00 [facility] ([facility] Brief Op Note REPORT#:[id number] REPORT STATUS: Signed DATE:02/01/19 TIME: 941 PATIENT: SELENA SPRING UNIT #: [id number] ROOM/BED: : 75 AGE: 43 SEX: F ATTEND: Christel Westbrook MD ADM AUTHOR: Ele Westbrook MD * ALL edits or amendments must be made on the [employer]/computer document * Op/Inv Proc Note - Brief ORM Surgeries: Surgery Date and Time: 02/01/2019729 Proposed Primary Procedure: LEFT ORIF ANKLE FRA CTURE, BONE ALLOGRAFT Pre-procedure diagnosis: left bimalleolar ankle fracture Post-procedure diagnosis: same as pre procedure dx, talar dome fracture Procedures performed: orif of bimalleolar ankle fracture open treatment of talar dome oc fracture Primary Surgeon: amairani Operator Supply(s): none Anesthesia: general anesthesia, local anesthesia Findings: soft bone extensive scar tissue oc fracture of medial talus Complications: none Estimated blood loss in ml's: less than 25 cc Specimens removed/altered: none Drain(s): None Tube(s): none Implant(s): synthes plate and screws Approach: open Disposition: PACU, stable at 0945 RPT #:[id number] END OF REPORT
--- NOTE | 2023-02-26 13:18 | EDPHYS ---
Physician Documentation [facility] Name: Kristen Rea Age: 47 yrs Sex: Female : 1975 Arrival Date: 02/26/2023 Time: 12:21 Bed 15 Private MD: ED Physician Neel Gutierrez HPI: 02/26 13:04 This 47 yrs old Female presents to ER via Wheelchair with complaints of Ankle snw Injury. 13:04 The patient presents with decreased range of motion, pain. The complaints affect the snw right ankle. Onset: The symptoms/episode began/occurred acutely, just prior to arrival. Context: resulted from a mis-step by the patient, into a hole, The mechanism of injury involved inversion of the affected ankle. Severity of symptoms: At their worst the symptoms were moderate. The patient has experienced a previous episode, many years ago, and the symptoms today are exactly the same, to the opposite ankle. It is unknown whether or not the patient has recently seen a physician. Historical: - Allergies: 12:46 No Known Allergies; aa5 - PMHx: 12:46 Diabetes mellitus; Osteoporosis; Gastroparesis; Muscle loss; aa5 - PSHx: 12:46 R ankle with metal; aa5 - Immunization history:: Adult Immunizations unknown. - Social history:: Smoking status: Patient denies any tobacco usage or history of. ROS: 13:03 Constitutional: Negative for fever, chills, and weight loss, Eyes: Negative for injury, snw pain, redness, and discharge, ENT: Negative for injury, pain, and discharge, Neck: Negative for injury, pain, and swelling, Cardiovascular: Negative for chest pain, palpitations, and edema, Respiratory: Negative for shortness of breath, cough, wheezing, and pleuritic chest pain, Abdomen/GI: Negative for abdominal pain, nausea, vomiting, diarrhea, and constipation, Back: Negative for injury and pain, : Negative for injury, bleeding, discharge, and swelling, Skin: Negative for injury, rash, and discoloration, Neuro: Negative for headache, weakness, numbness, tingling, and seizure, Psych: Negative for depression, anxiety, suicide ideation, homicidal ideation, and hallucinations. 13:03 MS/extremity: Positive for injury or acute deformity, decreased range of motion, swelling, tenderness. Exam: 13:02 Constitutional: This is a well developed, well nourished patient who is awake, alert, snw and in no acute distress. Head/Face: Normocephalic, atraumatic. Eyes: Pupils equal round and reactive to light, extra-ocular motions intact. Lids and lashes normal. Conjunctiva and sclera are non-icteric and not injected. Cornea within normal limits. Periorbital areas with no swelling, redness, or edema. Neck: Trachea midline, no thyromegaly or masses palpated, and no cervical lymphadenopathy. Supple, full range of motion without nuchal rigidity, or vertebral point tenderness. No Meningismus. Chest/axilla: Normal chest wall appearance and motion. Nontender with no deformity. No lesions are appreciated. Cardiovascular: Regular rate and rhythm with a normal S1 and S2. No gallops, murmurs, or rubs. Normal PMI, no JVD. No pulse deficits. Respiratory: Lungs have equal breath sounds bilaterally, clear to auscultation and percussion. No rales, rhonchi or wheezes noted. No increased work of breathing, no retractions or nasal flaring. Abdomen/GI: Soft, non-tender, with normal bowel sounds. No distension or tympany. No guarding or rebound. No evidence of tenderness throughout. Back: No spinal tenderness. No costovertebral tenderness. Full range of motion. Skin: Warm, dry with normal turgor. Normal color with no rashes, no lesions, and no evidence of cellulitis. Neuro: Awake and alert, GCS 15, oriented to person, place, time, and situation. Cranial nerves II-XII grossly intact. Motor strength 5/5 in all extremities. Sensory grossly intact. Cerebellar exam normal. Normal gait. Psych: Awake, alert, with orientation to person, place and time. Behavior, mood, and affect are within normal limits. 13:02 Musculoskeletal/extremity: Extremities: grossly normal except: noted in the lateral side of right foot and right lateral malleolus: decreased ROM, swelling, tenderness, ROM: limited passive range of motion due to pain, Circulation is intact in all extremities. Sensation intact. Vital Signs: 12:32 BP 138 / 95; Pulse 104; Resp 16 S; Temp 98(TE); Pulse Ox 100% on R/A; Weight 74.84 kg aa5 (R); Height 5 ft. 5 in. (R); 13:05 BP 136 / 98; Pulse 99; Resp 16; Pulse Ox 100% ; vg1 12:32 Body Mass Index 27.46 (74.84 kg, 165.1 cm) aa5 MDM: 12:30 Patient medically screened. snw 13:15 Differential diagnosis: fracture, sprain, arthritis. Data reviewed: vital signs, nurses snw notes, radiologic studies. I considered the following discharge prescriptions or medication management in the emergency department Medications were administered in the Emergency Department. See MAR. Counseling: I had a detailed discussion with the patient and/or guardian regarding: the historical points, exam findings, and any diagnostic results supporting the discharge/admit diagnosis, the presence of at least one elevated blood pressure reading (>120/80) during this emergency department visit, radiology results, the need for outpatient follow up, for definitive care, to return to the emergency department if symptoms worsen or persist or if there are any questions or concerns that arise at home. Special discussion: Based on the history and exam findings, there is no indication for further emergent testing or inpatient evaluation. I discussed with the patient/guardian the need to see the orthopedic surgeon for further evaluation of the symptoms. 02/26 12:40 Order name: Ankle Right 3 View XRAY snw 02/26 12:40 Order name: Foot Right 2 View XRAY snw 02/26 13:15 Order name: Walking boot; Complete Time: 13:44 snw Administered Medications: 13:02 Drug: Ketorolac IM 15 mg Route: IM; Site: left deltoid; vg1 13:44 Follow up: Response: No adverse reaction vg1 Disposition Summary: 02/26/23 13:17 Discharge Ordered Location: Home snw Condition: Stable snw Diagnosis - Sprain of ankle snw Followup: snw - With: Emergency Department - When: As needed - Reason: Worsening of condition Followup: snw - With: Private Physician - When: 2 - 3 days - Reason: Recheck today's complaints, Continuance of care, Re-evaluation by your physician Discharge Instructions: - Discharge Summary Sheet snw - Ankle Sprain snw - RICE Therapy for Routine Care of Injuries snw - Walking Boot, Adult snw Forms: - Work release form snw - Medication Reconciliation Form snw - Thank You Letter snw - Antibiotic Education snw - Prescription Opioid Use snw Prescriptions: - orphenadrine citrate 100 mg Oral Tablet Sustained Release - take 1 tablet by ORAL route 2 times per day As needed; 20 tablet; Refills: 0, snw Product Selection Permitted Signatures: Dispatcher [employer] Shirin Hays FNP-C CANDLE POURER-Hortenciaw Kae Lee, RN RN aa5 Nona Holm RN RN vg1
--- NOTE | 2023-02-26 13:18 | ER ---
Nurse's Notes [facility] Name: Kristen Rea Age: 47 yrs Sex: Female : 1975 Arrival Date: 02/26/2023 Time: 12:21 Bed 15 Private MD: Diagnosis: Sprain of ankle Presentation: 02/26 12:32 Chief complaint: Patient states: right ankle pain. Pt states "I stepped in a hole". aa5 12:32 Coronavirus screen: At this time, the client does not indicate any symptoms associated aa5 with coronavirus-19. Ebola Screen: Patient denies travel to an Ebola-affected area in the 21 days before illness onset. Initial Sepsis Screen: Does the patient meet any 2 criteria? No. Patient's initial sepsis screen is negative. Does the patient have a suspected source of infection? No. Patient's initial sepsis screen is negative. Risk Assessment: Do you want to hurt yourself or someone else? Patient reports no desire to harm self or others. Onset of symptoms was February 26, 2023. 12:32 Acuity: ARLENE 4 aa5 12:32 Method Of Arrival: Wheelchair aa5 Historical: - Allergies: 12:46 No Known Allergies; aa5 - PMHx: 12:46 Diabetes mellitus; Osteoporosis; Gastroparesis; Muscle loss; aa5 - PSHx: 12:46 R ankle with metal; aa5 - Immunization history:: Adult Immunizations unknown. - Social history:: Smoking status: Patient denies any tobacco usage or history of. Screenin:03 [facility] ED Fall Risk Assessment (Adult) History of falling in the last 3 months, vg1 including since admission Yes- single mechanical fall (1 pt) Confusion or Disorientation No (0 pts) Intoxicated or Sedated No (0 pts) Impaired Gait No (0 pts) Mobility Assist Device Used No (0 pt) Altered Elimination No (0 pt) Score/Fall Risk Level 0 - 2 = Low Risk Oriented to surroundings, Maintained a safe environment, Educated pt \\T\\ family on fall prevention, incl call for assistance when getting out of bed, Assessed \\T\\ reinforced patient's understanding of fall precautions. Abuse screen: Denies threats or abuse. Denies injuries from another. Nutritional screening: No deficits noted. Tuberculosis screening: No symptoms or risk factors identified. Assessment: 13:03 General: Appears uncomfortable, Behavior is cooperative. Pain: Complains of pain in vg1 right lateral malleolus Pain currently is 5 out of 10 on a pain scale. at worst was 10 out of 10 on a pain scale. Aggravated by weight bearing. Neuro: Level of Consciousness is awake, alert, obeys commands, Oriented to person, place, time, situation. Cardiovascular: Pulses are palpable in right dorsalis pedis artery. Musculoskeletal: Swelling present in right ankle. 13:44 Reassessment: Patient appears in no apparent distress at this time. No changes from vg1 previously documented assessment. Patient and/or family updated on plan of care and expected duration. Pain level reassessed. Patient is alert, oriented x 3, equal unlabored respirations, skin warm/dry/pink. Vital Signs: 12:32 BP 138 / 95; Pulse 104; Resp 16 S; Temp 98(TE); Pulse Ox 100% on R/A; Weight 74.84 kg aa5 (R); Height 5 ft. 5 in. (R); 13:05 BP 136 / 98; Pulse 99; Resp 16; Pulse Ox 100% ; vg1 12:32 Body Mass Index 27.46 (74.84 kg, 165.1 cm) aa5 ED Course: 12:27 Patient arrived in ED. im 12:27 Shirin Roque FNP-C [facility]. snw 12:27 Neel Gutierrez MD is Attending Physician. snw 12:32 Arm band placed on. aa5 12:32 Patient's name was called from ER lobby. No response. aa5 12:46 Triage completed. aa5 12:53 Nona Holm, FAUSTO is Primary Nurse. vg1 13:03 Patient has correct armband on for positive identification. Bed in low position. Call vg1 light in reach. Side rails up X 1. 13:03 No provider procedures requiring assistance completed. Patient did not have IV access vg1 during this emergency room visit. 13:06 Ankle Right 3 View XRAY In Process Unspecified. EDMS 13:06 Foot Right 2 View XRAY In Process Unspecified. EDMS Administered Medications: 13:02 Drug: Ketorolac IM 15 mg Route: IM; Site: left deltoid; vg1 13:44 Follow up: Response: No adverse reaction vg1 Medication: 13:03 VIS not applicable for this client. vg1 Outcome: 13:17 Discharge ordered by . kendy 13:44 Discharged to home via wheelchair. vg1 13:44 Condition: good 13:44 Discharge instructions given to patient, Instructed on discharge instructions, follow up and referral plans. medication usage, Demonstrated understanding of instructions, follow-up care, medications, Prescriptions given X 1. 13:44 Patient left the ED. vg1 Signatures: Dispatcher [employer] EDMS Shirin Roque, FISHING WORKER-C FISHING WORKER-Csnw Kae Lee, RN RN aa5 Nona Holm RN RN vg1 Tawana Latham
--- NOTE | 2023-02-26 13:46 | RAD REPORT ---
EXAM DESCRIPTION: RAD - Ankle Right 3 View - 02/26/2023 1:04 pm CLINICAL HISTORY: Right ankle pain FINDINGS: No fracture or dislocation is seen.
--- NOTE | 2023-02-26 13:48 | RAD REPORT ---
EXAM DESCRIPTION: RAD - Foot Right 2 View - 02/26/2023 1:04 pm CLINICAL HISTORY: Right foot pain FINDINGS: No fracture or dislocation is seen
[2023-02-26 13:50] VITALS: TEMP 98; O2SAT 100
[2023-02-26 13:52] VITALS: BP 136/98
== END 2023-02-26 13:44 | disposition home or self-care (01) ==
LOC: ER 12:21
DX: S93.401A Sprain of unspecified ligament of right ankle, initial encounter (principal); E11.9 Type 2 diabetes mellitus without complications
CPT/HCPCS: 96372; 99284